=== PATIENT | male | born 1940 | race Caucasian/White ===

== ENCOUNTER → 2016-10-08 | Outpatient (CLI) | payer BC ==
[~2016-10-08] MED LIST: ADVIN25/60 INH; ALBUAER19 INH; ALLO300T2 PO; ASPI81TA28 PO; CALC-342 PO; FURO40TA3 PO; IPRA0.037 NAE; LISI20TA3 PO; LPT10 PO; MULTTAB58 PO; SENNTAB23 PO; TIOTCAP INH
[2016-10-08 11:33] LABS: CREATININE RANDOM URINE < 13.0 mg/dl
[2016-10-08 13:36] LABS: ALT/SGPT 19 U/L (12-78); BLOOD UREA NITROGEN 21 mg/dl (7-18); BUN/CREATININE RATIO 14.9 (10-20); CALCIUM 9.3 mg/dl (8.5-10.1); CARBON DIOXIDE 30 mmol/L (21-32); CHLORIDE 103 mmol/L (98-107); CHOLESTEROL 132 mg/dl (0-200); GLUCOSE 175 mg/dl (70-99); POTASSIUM 3.7 mmol/L (3.5-5.1); SODIUM 142 mmol/L (136-145); TRIGLYCERIDES 120 mg/dl (0-150); VERY LOW DENSITY LIPOPROT CALC 24 mg/dl
[2016-10-08 13:40] LABS: ALB/GLOB RATIO 1.1 (0.9-2); ALKALINE PHOSPHATASE 102 U/L (45-117); AST/SGOT 14 U/L (15-37); CHOLESTEROL/HDL RATIO 2.7; HDL CHOLESTEROL 49 mg/dl; LDL CHOLESTEROL CALCULATED 59 mg/dl; PHOSPHORUS 2.8 mg/dl (2.5-4.9)
== END | disposition home or self-care (01) ==
LOC: C.LABBC 09:08
PROVIDERS: ATTEND Family Medicine
DX: I71.4 Abdominal aortic aneurysm, without rupture (principal); N18.3 Chronic kidney disease, stage 3 (moderate)

== ENCOUNTER → 2017-01-06 | Outpatient (CLI) | payer BC ==
--- NOTE | 2017-01-06 10:46 | DIAGNOSTIC IMAGING REPORT ---
CT SCAN OF THE CHEST WITHOUT IV CONTRAST CLINICAL HISTORY: Pulmonary nodule follow-up. COMPARISON STUDY: Chest x-ray dated 09/01/2016. Chest CT dated 03/18/2016. Abdominal CT dated 02/17/2015 08/05/2006. TECHNIQUE: CT scan of the thorax was performed from the thoracic inlet to the upper abdomen. Images are reviewed in the axial, sagittal, and coronal planes. IV contrast was not administered for this examination as per the referring clinician. CT DOSE: 1196.97 mGy.cm FINDINGS: Thyroid: The thyroid gland is enlarged and heterogeneous. Large calcifications are present in the right lobe. Thoracic aorta: There is atherosclerotic calcification of the thoracic aorta, which is normal in caliber and demonstrates standard 3-vessel arch anatomy. Heart: The heart is enlarged and without pericardial effusion. The coronary arteries are densely calcified. Lungs and pleural spaces: There is a low suspicion 5 mm focus of pleural thickening in the right lower lobe along the major fissure seen on image #193. Patchy nodular airspace opacities are present at the right lung base in the right middle lobe on image #230 and at the left lung base on images #191 and #233. This is new from 03/18/2016 and likely represents mild infectious/inflammatory pneumonitis. The trachea and central airways are clear. No lobar consolidation or pleural effusion is identified. Scattered calcified granulomas are observed. Mediastinum: There is no mediastinal lymphadenopathy. Deb: Not well assessed without IV contrast. Axillae: There is no axillary lymphadenopathy. Upper abdomen: There is a small hiatal hernia. Numerous calcified splenic granulomas are observed. There are calcified gallstones. There are numerous bilateral adrenal nodules. Several contain macroscopic fat. The largest is seen on the right and measures up to 5 cm. These are similar appearance dating back to 2005 and of doubtful significance. Scattered hepatic cysts measure up to 1.8 cm. Additional subcentimeter hepatic hypodensities also likely represent cysts but are too small for definitive characterization. A 4.4 cm exophytic cyst arises from the upper pole the left kidney. Skeletal structures: The skeletal structures are osteopenic. Mild degenerative change is seen throughout the thoracic spine. No lytic or blastic bony lesions are seen. Soft tissues: Gynecomastia is observed. IMPRESSION: 1. There is no lobar consolidation or pleural effusion. 2. There is unchanged appearance of a low suspicion 5 mm focus of pleural based nodularity along the right major fissure as compared to 03/18/2016. 3. There are new small foci of patchy nodular consolidative change in the right middle lobe and the left lower lobe. These are new from 03/18/2016 and likely on an infectious/inflammatory basis. Precautionary follow-up CT scan in 6 months time is recommended to document resolution. 4. Cardiomegaly. 5. Cholelithiasis. 6. There is evidence of remote granulomatous infection. 7. Large bilateral adrenal nodules which contain macroscopic fat are not significant changed dating back to 2005. These are of doubtful significance. 8. Additional findings as above. Electronically signed by: Matias Nuñez M.D. 01/06/2017 10:44 AM Dictated Date/Time: 01/06/2017 10:33 AM
--- NOTE | 2017-01-10 14:42 | PULMONARY FUNCTION TEST ---
CLINICAL DATA: A 76-year-old male with a height of 72 inches and a weight of [address] Fitch for evaluation of COPD. Spirometry pre- and post-bronchodilator were performed. FINDINGS: Pre-bronchodilator spirometry demonstrates moderate obstructive airways disease. FVC was 63% of predicted. FEV1 was 59% of predicted. [id number] was 42% of predicted. There was some improvement after inhaled bronchodilator. FVC improved 2% to 64% of predicted. FEV1 improved 8% to 63% of predicted. KCU12-04 improved 30% to 55% of predicted. IMPRESSION: Moderate obstructive airways disease with slight improvement after inhaled bronchodilator. MTDD
== END | disposition home or self-care (01) ==
LOC: C.CTS 10:22
PROVIDERS: ATTEND Specialist
DX: J44.9 Chronic obstructive pulmonary disease, unspecified (principal); I51.7 Cardiomegaly; K80.20 Calculus of gallbladder without cholecystitis without obstruction

== ENCOUNTER → 2017-06-27 | Outpatient (CLI) | payer BC ==
--- NOTE | 2017-06-27 10:41 | DIAGNOSTIC IMAGING REPORT ---
CT OF THE CHEST WITHOUT IV CONTRAST CLINICAL HISTORY: Pulmonary nodule. COPD. COMPARISON STUDY: PET CT November 05, [address] January 06, 2017. CT DOSE: 968.09 mGy.cm TECHNIQUE: Axial images of the chest were obtained without IV contrast. Images were reviewed in the axial, sagittal, and coronal planes. IV contrast was not administered for this examination. A dose lowering technique was utilized adhering to the principles of ALARA. FINDINGS: No enlarged axillary, mediastinal or hilar lymph nodes are present. The heart is mildly enlarged. There is extensive coronary artery calcification. There is no pericardial effusion. Bilateral gynecomastia is noted. There is no consolidation to suggest pneumonia. The mild airspace opacity shown on exam of January 06, 2017 within the right middle lobe and left lower lobe has resolved. A 9 mm perifissural nodule within the right lower lobe shown on image 188 is unchanged since exam of March 18, 2016. This is likely benign. There are no suspicious pulmonary nodules. Central airways are patent. Bony thorax is unremarkable. Fat-containing bilateral renal lesions are benign. There is a left renal cyst and gallstones within the gallbladder. Multiple hepatic lesions are unchanged and likely reflect cysts. There are calcified granulomas within the spleen. IMPRESSION: 1. No change in the 9 mm perifissural right lower lobe nodule since earlier exams. This nodule is likely benign. 2. No suspicious pulmonary nodules. 3. Interval resolution of mild airspace opacities within the left lower lobe and right middle lobe since CT of January 06, 2017. Electronically signed by: Pipe Winn M.D. 06/27/2017 10:39 AM Dictated Date/Time: 06/27/2017 10:12 AM
== END | disposition home or self-care (01) ==
LOC: C.CTS 09:50
PROVIDERS: ATTEND Specialist
DX: R91.1 Solitary pulmonary nodule (principal); J44.9 Chronic obstructive pulmonary disease, unspecified

== ENCOUNTER 2021-02-20 08:07 | Inpatient (IN) ==
--- NOTE | 2021-01-29 17:00 | PAT Medication Instructions ---
Medication Instructions Date of Service January 29, 2021 Home Medications allopurinol 1.5 tab PO QAM aspirin 81 mg PO Q2D calcium carbonate-vitamin D3 [Calcium 500 + D] 1 tab PO HS docusate sodium [Colace] 100 mg PO BID PRN duloxetine 60 mg PO QAM ipratropium-albuterol 1 dose INHALATION Q6H PRN metoprolol succinate 25 mg PO UD multivitamin 1 tab PO QAM albuterol sulfate [Ventolin HFA] 2 puff INHALATION Q6H PRN ezetimibe 10 mg PO QAM famotidine 20 mg PO HS PRN Metamucil 1 tbsp PO QAM Trelegy Ellipta 1 inh INHALATION QAM acetylcysteine 600 mg PO BID cephalexin 500 mg PO UD PRN cyanocobalamin (vitamin B-12) 1,000 mcg PO QAM furosemide 40 mg PO QAM spironolactone 12.5 mg PO QAM sulindac 200 mg PO QAM Continue as directed aspirin 81 mg PO Q2D (unless otherwise instructed by your surgeon) cephalexin 500 mg PO UD PRN ASK your surgeon for instructions sulindac 200 mg PO QAM STOP taking 2 weeks before surgery If surgery is within 2 weeks, stop taking as soon as possible. acetylcysteine 600 mg PO BID DO NOT take the morning of surgery docusate sodium [Colace] 100 mg PO BID PRN multivitamin 1 tab PO QAM Metamucil 1 tbsp PO QAM cyanocobalamin (vitamin B-12) 1,000 mcg PO QAM furosemide 40 mg PO QAM spironolactone 12.5 mg PO QAM Take morning of surgery With a small sip of water, OTHERWISE NOTHING TO EAT OR DRINK AFTER MIDNIGHT: allopurinol 1.5 tab PO QAM duloxetine 60 mg PO QAM ipratropium-albuterol 1 dose INHALATION Q6H PRN (if needed) metoprolol succinate 25 mg PO UD albuterol sulfate [Ventolin HFA] 2 puff INHALATION Q6H PRN (if needed) ezetimibe 10 mg PO QAM Trelegy Ellipta 1 inh INHALATION QAM Take evening before surgery calcium carbonate-vitamin D3 [Calcium 500 + D] 1 tab PO HS docusate sodium [Colace] 100 mg PO BID PRN (if needed) ipratropium-albuterol 1 dose INHALATION Q6H PRN (if needed) metoprolol succinate 25 mg PO UD albuterol sulfate [Ventolin HFA] 2 puff INHALATION Q6H PRN (if needed) famotidine 20 mg PO HS PRN (if needed) Other Notes If you have any questions please call us at [phone] or [phone] or [phone] or [phone]
--- NOTE | 2021-01-30 12:01 | Anesthesiology Consultation ---
Date of Service January 30, 2021 Assessment & Plan (1) Encounter for pre-operative examination: COVID Status: As of 01/30 assessment, patient denies travel to endemic area, known exposure/sick contacts, or symptoms of COVID19. Patient instructed that they and their household members must follow strict social distancing guidelines, wear a mask in public and avoid travel/events/gatherings for 14 days prior to surgery. Preoperative COVID19 testing to be completed prior to surgery per surgeon's arrangements (02/18). Patient encouraged to self-isolate as much as possible between COVID testing and surgery. Lab called to report unable to run CBC and type and screen due to clumping/str anding in tubes. Will contact pt to have rpt labs done. Pt to see cardio on 02/03. Chart Review Chart Review: Acceptable Risk for Surgery (pending updated labs and cardio clearance) and Patient seen in Pre Admission Testing Teaching & Discussion Instructed NPO after midnight before surgery, except medications with 15 cc of water. Medication instructions provided according to the PAT guidelines. History Surgery Operation Date: 02/20/21 12:25 Proposed Procedures p T11-T12 Posterior Decompression and Fusion, Spinal Cord Monitoring - Shaun Denton, Height/Weight Height: 5 ft 11 in Weight: 118 kg Allergies Allergy/AdvReac Type Severity Reaction Status Date / Time No Known Allergies Allergy Unknown ` Verified 01/28/21 08:58 Medications Home Medications Medication Instructions Recorded Confirmed Last Taken allopurinol 1.5 tab PO QAM 05/30/18 01/28/21 12/04/20 08:00 aspirin 81 mg PO Q2D 05/30/18 01/28/21 11/28/20 calcium carbonate-vitamin D3 1 tab PO HS 05/30/18 01/28/21 12/01/20 [Calcium 500 + D] docusate sodium [Colace] 100 mg PO BID PRN 05/30/18 01/28/21 12/04/20 20:00 duloxetine 60 mg PO QAM 05/30/18 01/28/21 12/05/20 08:00 ipratropium-albuterol 1 dose INHALATION Q6H PRN 05/30/18 01/28/21 06/25/18 metoprolol succinate 25 mg PO UD 05/30/18 01/28/21 12/05/20 08:00 multivitamin 1 tab PO QAM 05/30/18 01/28/21 12/04/20 08:00 albuterol sulfate [Ventolin HFA] 2 puff INHALATION Q6H PRN 06/26/18 01/28/21 Unknown ezetimibe 10 mg PO QAM 06/26/18 01/28/21 12/04/20 08:00 famotidine 20 mg PO HS PRN 06/26/18 01/28/21 12/04/20 20:00 Metamucil 1 tbsp PO QAM 12/02/20 01/28/21 12/04/20 08:00 Trelegy Ellipta 1 inh INHALATION QAM 12/02/20 01/28/21 12/05/20 08:00 acetylcysteine 600 mg PO BID 12/02/20 01/28/21 12/04/20 19:00 cephalexin 500 mg PO UD PRN 12/02/20 01/28/21 Unknown cyanocobalamin (vitamin B-12) 1,000 mcg PO QAM 12/02/20 01/28/21 12/04/20 08:00 furosemide 40 mg PO QAM 12/02/20 01/28/21 12/04/20 08:00 spironolactone 12.5 mg PO QAM 12/02/20 01/28/21 12/04/20 08:00 sulindac 200 mg PO QAM 12/02/20 01/28/21 12/04/20 08:00 Past Medical History Medical History (Updated 02/02/21 @ 09:58 by Tim Sanchez) AAA (abdominal aortic aneurysm) (CARDIO MONITORING) CAD (coronary artery disease) 2015 cath showed no high-grade obstruction -- no stents. Follows with [facility] cardio. Chronic back pain CKD (chronic kidney disease), stage III COPD (chronic obstructive pulmonary disease) HLD (hyperlipidemia) Hx of gout Hx of melanoma of skin Hypertension Neuropathy BLE Osteoarthritis Sleep apnea CPAP -- reports at least 4-5hrs of use every night SOB (shortness of breath) on exertion Exercise / Class Metabolic Activity III < 4 Walking/Shop/Light housework (Limited by leg weakness/neuropathy, denies CP or SOB with ambulation) Past Family History Family History Mother Diabetes Brother Family hx of colon cancer Diabetes Other Bladder cancer COPD (chronic obstructive pulmonary disease) Hypertension No family history of adverse response to anesthesia Past Surgical History Surgical History Fusion of spine LUMBAR X 2 H/O esophagogastroduodenoscopy History of adenoidectomy History of cardiac cath 2016- NO STENTS History of partial knee replacement RT History of tonsillectomy Hx of LASIK Status post Mohs surgery Past Anesthesia History No Hx of Anesthesia Complications and No Family Hx of Anesthesia Complications History of PONV No Hx of PONV and No Hx of Motion Sickness Social History Smoking Status: Former smoker tobacco type: cigarettes Do You Dip or Chew Tobacco: No Smoking End Date: OVER 30 YEARS AGO Hx Alcohol Use: Yes Alcohol type: beer alcohol intake frequency: holidays/special occasions only substance use type: does not use Review of Systems Pt denies any recent chest pain, shortness of breath, palpitations, cough, fever, URI, or uncontrolled acid reflux. Physical Exam Vital Signs BP: 152/91 -- pt reports this is high for him, was 120s at PCP office, he is anxious today P: 76bpm SPO2: 97% RA T: 98.1 F R: 16 ENMT Mouth: + dental restorations (many crowns and posts) and + small oral opening; no chipped teeth and no loose teeth Thyromental Distance: > or= 3.5 Finger Breadths (difficult to palpate due to excess tissue) Mallampati Class: I Neck + thick neck and + limited neck extension (mildly) Respiratory normal respiratory effort, lungs clear to auscultation Cardiovascular RRR, no murmur, no edema Vessels: no carotid bruit Testing Laboratory Results 01/30/21 12:15 01/30/21 12:15 PT 10.1 Seconds (9.0-12.0) 01/30/21 12:15 INR 1.0 (0.9-1.1) 01/30/21 12:15 APTT 24.5 Seconds (21.0-31.0) 01/30/21 12:15 Urine Color Yellow 01/30/21 12:15 Urine Appearance Clear (Clear) 01/30/21 12:15 Urine pH 5.5 (4.5-7.5) 01/30/21 12:15 Ur Specific [place] 1.015 (1.000-1.030) 01/30/21 12:15 Urine Protein Negative (Negative) 01/30/21 12:15 Urine Glucose (UA) Negative (Negative) 01/30/21 12:15 Urine Ketones Negative (Negative) 01/30/21 12:15 Urine Nitrite Negative (Negative) 01/30/21 12:15 Ur Leukocyte Esterase 2+ (Negative) H 01/30/21 12:15 Urine WBC (Auto) >30 /hpf (0-5) H 01/30/21 12:15 Urine RBC (Auto) 0-4 /hpf (0-4) 01/30/21 12:15 U Hyaline Cast (Auto) 1-5 /lpf (0-5) 01/30/21 12:15 U Epithel Cells (Auto) 0-5 /lpf (0-5) 01/30/21 12:15 Urine Bacteria (Auto) 2+ (Negative) H 01/30/21 12:15 Blood Type Cancelled 01/30/21 12:15 Antibody Screen Cancelled 01/30/21 12:15 01/30/21 12:15 Urine Culture - Final Urine,Clean Catch Proteus mirabilis *Received phone call from lab--unable to run CBC due to clotting/stranding in tube. Will need rpt CBC. *Surgeon's office flagged re: + UA Electrocardiogram Date: 10/29/20 Sinus rhythm at 99 bpm with first-degree AV block. Otherwise normal EKG. Echocardiogram Date: 04/17/20 EF: 55-59% RWMA: + none Other Findings: + LVH (mild concentric) and + diastolic dysfunction (grade I) The aortic root is borderline enlarged. The proximal ascending thoracic aorta is moderately enlarged at 4.6 cm. Compared to last available study changes are noted as follows: Ascending aorta size has increased slightly. Stress Test Date: 06/21/18 Type: DSE The stress echo is negative for inducible ischemia. There is an adequate and appropriate heart rate and blood pressure response to the dobutamine atropine stress protocol. Stress EKG response showed no evidence of ischemia. LV wall motion is normal at rest and with stress. The LV cavity size is normal. LV wall thickness is moderately increased (concentric). Grade 1 diastolic dysfunction of the left ventricle. The aortic valve is mildly calcified. Aortic stenosis is absent. Other Testing Chest CT 10/17/20 No pericardial effusion. Heart is not enlarged. Coronary and aortic atherosclerosis. No pleural effusion. No pneumothorax. Central airways patent. Calcified granuloma in the left upper lobe. Stable 4.2 cm aneurysmal dilatation of the mid ascending aorta. Multinodular goiter. Cholelithiasis. Bilateral adrenal gland myelo lipoma and/or adenoma.
[2021-01-30 12:49] LABS: Partial Thromboplastin Ratio 0.9; Partial Thromboplastin Time 24.5 Seconds (21.0-31.0); Prothrombin Time 10.1 Seconds (9.0-12.0)
[2021-01-30 12:50] LABS: Appearance Urine Clear (Clear); Bacteria Urine Automated 2+ (Negative); Bilirubin Urine Negative (Negative); Blood Urine Negative (Negative); Color Urine Yellow; Epithelial Cell Urine Auto 0-5 /lpf (0-5); Glucose Urine UA Negative (Negative); Ketones Urine Negative (Negative); Leukocyte Esterase Urine 2+ (Negative); Nitrite Urine Negative (Negative); Protein Urine Negative (Negative); RBC Urine Automated 0-4 /hpf (0-4); Specific Gravity Urine 1.015 (1.000-1.030); Urobilinogen Urine Negative (Negative); WBC Urine Automated >30 /hpf (0-5); pH Urine 5.5 (4.5-7.5)
[2021-01-30 16:16] LABS: BUN Creatinine Ratio 21.2 (10-20); Calcium 9.6 mg/dl (8.5-10.1); Creatinine Clr Calc Pharmacy 58.2 ml/min; Est GFR (African American) 59.3 ml/min; Est GFR (Non-African American) 51.2 ml/min; Potassium 4.3 mmol/L (3.5-5.1)
[~2021-02-20 08:07] MED LIST changes: +ACETAMINOPHEN 500 MG TAB PO SCH; -ADVIN25/60 INH; -ALBUAER19 INH; -ALLO300T2 PO; -ASPI81TA28 PO; -CALC-342 PO; +CeleBREX 200 MG CAP PO SCH; -FURO40TA3 PO; +GABAPENTIN 300 MG CAP PO SCH; -IPRA0.037 NAE; +LACTATED RINGER'S 1,000 ML IV SCH; -LISI20TA3 PO; -LPT10 PO; -MULTTAB58 PO; -SENNTAB23 PO; -TIOTCAP INH; +ceFAZolin 2000MG 2,000 MG/15 ML SYR IV SCH
[2021-02-20] MEDS ORDERED: ATROPINE SULFATE 0.1 MG/ML 10ML SYR IV PRN ×2 (09:57→13:16)
[2021-02-20] MEDS ORDERED: ePHEDrine sulfate 50 MG/ML AMP IV PRN ×2 (09:57→13:16)
[2021-02-20] MEDS ORDERED: HYDROmorphone INJ 1 MG/ML SYRINGE IV PRN ×2 (09:57→14:37)
[2021-02-20] MEDS ORDERED: ONDANSETRON INJ 2 MG/ML 2 ML VIAL IV PRN ×2 (09:57→14:37)
[2021-02-20] MEDS ORDERED: SODIUM CHLORIDE 0.9% 250 ML IV PRN (10:00)
[2021-02-20] MEDS ORDERED: ROCURONIUM BROMIDE 10 MG/ML 5 ML VIAL IV ONE (10:11)
[2021-02-20] MEDS ORDERED: LIDOCAINE 2% 2 ML VIAL/AMP(20MG/ML) INFIL ONE (10:11)
[2021-02-20] MEDS ORDERED: PROPOFOL IV EMULSION 10 MG/ML 20 ML VIAL IV ONE (10:11)
[2021-02-20] MEDS ORDERED: fentaNYL citrate 100 MCG/2 ML VIAL ONE ×3 (10:11→12:55)
--- NOTE | 2021-02-20 10:28 | History & Physical Bridge Note ---
Date of Service February 20, 2021 History & Physical Bridge Note I have examined the patient, reviewed the History & Physical and in the interval since the performance of the History & Physical I have noted the following changes of clinical significance: no changes noted
--- NOTE | 2021-02-20 10:29 | History & Physical Report ---
Date of Service February 20, 2021 Assessment & Plan (1) Myelopathy concurrent with and due to spinal stenosis of thoracic region: Admission and Anticipated Discharge Date Admission Date: T12 posterior decompression fusion History of Present Illness Chief Complaint: Back and bilateral leg weakness Primary Care Provider: Hank Burden DO This is an 80-year-old male well-known to me the presents with worsening back pain leg weakness and numbness is here for surgical invention. Allergies Allergy/AdvReac Type Severity Reaction Status Date / Time [id number]-Box Reductase AdvReac Intermediate Dizziness Verified 02/20/21 08:52 Inhibitor Home Medications Medication Instructions Recorded Confirmed Type allopurinol 1.5 tab PO QAM 05/30/18 02/20/21 History aspirin 81 mg PO Q2D 05/30/18 02/20/21 History calcium carbonate-vitamin D3 1 tab PO HS 05/30/18 02/20/21 History [Calcium 500 + D] docusate sodium [Colace] 100 mg PO BID PRN 05/30/18 02/20/21 History duloxetine [Cymbalta] 60 mg PO QAM 05/30/18 02/20/21 History ipratropium-albuterol 1 dose INHALATION Q6H PRN 05/30/18 02/20/21 History metoprolol succinate 25 mg PO UD 05/30/18 02/20/21 History multivitamin 1 tab PO QAM 05/30/18 02/20/21 History albuterol sulfate [Ventolin HFA] 2 puff INHALATION Q6H PRN 06/26/18 02/20/21 History ezetimibe [Zetia] 10 mg PO QAM 06/26/18 02/20/21 History famotidine [Pepcid] 20 mg PO HS PRN 06/26/18 02/20/21 History Metamucil 1 tbsp PO QAM 12/02/20 02/20/21 History Trelegy Ellipta 1 inh INHALATION QAM 12/02/20 02/20/21 History acetylcysteine [NAC] 600 mg PO BID 12/02/20 02/20/21 History cephalexin 500 mg PO UD PRN 12/02/20 02/20/21 History cyanocobalamin (vitamin B-12) 1,000 mcg PO QAM 12/02/20 02/20/21 History furosemide 40 mg PO QAM 12/02/20 02/20/21 History spironolactone [Aldactone] 12.5 mg PO QAM 12/02/20 02/20/21 History sulindac 200 mg PO QAM 12/02/20 02/20/21 History Past Med/Surg History Medical History (Updated 02/20/21 @ 10:29 by Shaun Denton DO) AAA (abdominal aortic aneurysm) (CARDIO MONITORING) CAD (coronary artery disease) 2015 cath showed no high-grade obstruction -- no stents. Follows with [facility]. Chronic back pain CKD (chronic kidney disease), stage III COPD (chronic obstructive pulmonary disease) HLD (hyperlipidemia) Hx of gout Hx of melanoma of skin Hypertension Neuropathy BLE Osteoarthritis Sleep apnea CPAP -- reports at least 4-5hrs of use every night SOB (shortness of breath) on exertion Surgical History Fusion of spine LUMBAR X 2 H/O esophagogastroduodenoscopy History of adenoidectomy History of cardiac cath 2015- NO STENTS History of partial knee replacement RT History of tonsillectomy Hx of LASIK Status post Mohs surgery Family History Mother Diabetes Brother Family hx of colon cancer Diabetes Other Bladder cancer COPD (chronic obstructive pulmonary disease) Hypertension No family history of adverse response to anesthesia Social History Smoking Status: Former smoker Smoking End Date: OVER 30 YEARS AGO; Second Hand Exposure: No; Do You Dip or Chew Tobacco: No; Tobacco Cessation Education Requested by Patient: No Hx Alcohol Use: No Hx Substance Use: No Preferred Language: [place] Communication Ability: Effective Visual Impairment: No Limitations Timekeeper Required: No Beliefs That Will Affect Care: None Current Living Situation: Spouse Feels Safe at Home: Yes Safety Concerns: Feels Safe At This Time Assistive Devices: Cane, CPAP and Glasses Assistive Devices Comment: READING GLASSES Physical Exam Physical Exam: Patient is alert and oriented Heart regular in rhythm Lungs clear to auscultation Results & Data ([facility]) Vital Signs (Past 12 Hours) Vital Signs Temp Pulse Resp BP Pulse Ox 02/20/21 09:03 36.8 C 87 20 144/83 H 96
[2021-02-20] MEDS ORDERED: SUGAMMADEX SODIUM 200 MG/2 ML VIAL IV ONE (10:58)
[2021-02-20] MEDS ORDERED: BUPIVACAINE/EPINEPHRINE 0.5% MPF 1:200,000 30 ML VIAL ONE (10:59)
[2021-02-20] MEDS ORDERED: FLOSEAL HEMOSTATIC MATRIX 10ML TOP ONE (12:43)
[2021-02-20] MEDS ORDERED: NEOSTIGMINE METHYLSULFATE 1 MG/ML 10ML VIAL ONE (12:45)
[2021-02-20] MEDS ORDERED: DEXAMETHASONE SOD INJ 4 MG/ML VIAL ONE (12:45)
[2021-02-20] MEDS ORDERED: PHENYLEPHRINE 100MCG/ML 5ML SYR ONE (12:45)
[2021-02-20] MEDS ORDERED: GLYCOPYRROLATE 0.2 MG/ML VIAL ONE (12:45)
[2021-02-20] MEDS ORDERED: ONDANSETRON INJ 2 MG/ML 2 ML VIAL ONE (12:45)
--- NOTE | 2021-02-20 12:52 | Operative Report ---
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 #2 posterior spinal fusion T11-T12. #3 placement posterior instrumentation T11-T12. #4 placement locally harvested morselized autograft in the posterior gutters. #5 placement infuse collagen sponge, master graft in the posterior lateral gutters. Surgeon Shaun Denton, DO Light Cleaner Sim Davis Estimated Blood Loss 100 Findings See Below The patient is 5 foot 11 inches tall weighing over 117 kg with a BMI in excess of 36. The patient's body habitus did contribute to significant technical difficulty adding at least 50% increase to the operative time. Specimens None Indications This is a 80-year-old male known to me the presents with marked progressive myelopathy and is here for surgical invention. Description of Procedure Patient was met with identified informed consent obtained. Patient was then taken to the operative suite underwent ablation placed in a prone position the Riley table Armond frame. All bony prominences well-padded eyes inspected to ensure no external pressure placed upon the. This point the thoracic spine was prepped and draped in normal sterile fashion. Sharp dissection with the assistance of Bovie cautery was performed down to and exposing the lamina and transverse processes of T11 and T12. Then performed complete laminectomy of T11 including bilateral medial facetectomies and foraminotomies addressing severe spinal stenosis. Obvious instability of the facets was noted as well as adhesions to the dura. Pedicle screws were then placed in T11-T12 bilaterally with assistance of fluoroscopy the purposes demetrio locked in position. The transverse processes of T11-T12 were then burred to subcortically bone. Infuse collagen sponge mass graft local autograft was then placed in the posterior lateral gutters. 15 round TEX drain inserted. The incision was then closed with 1 Vicryl in the fascia 2-0 Vicryl subcutaneously and 4 Monocryl for final skin closure. Steri-Strip sterile dressings placed. Patient waken taken PACU stable condition. Please note spinal cord monitoring was utilized at the procedure no changes noted. Lastly Sim Davis was present at the entire procedure involved the patient positioning complex portions of the surgery and final skin closure. I attest to the content of the Intraoperative Record and any orders documented therein. Any exceptions are noted below.
--- NOTE | 2021-02-20 13:27 | Fluoroscopy Report ---
[place] thoracic spine 2V CLINICAL HISTORY: T11-12 DECOMPRESSION/FUSION COMPARISON STUDY: Thoracic spine MRI January 26, 2021. FLUOROSCOPY TIME: 23 seconds. FLUOROSCOPIC IMAGES: 3 FINDINGS: Exact localization is difficult given partial visualization of the lumbar spine. These imag es demonstrate a posterior decompression and 2 level bilateral pedicle screw fusion. No unexpected ra diopaque bodies are present. IMPRESSION: Fluoroscopic images demonstrating a posterior decompression and 2 level bilateral pedicl e screw fusion. ACT 112: Negative or not required by law. Electronically signed by: Pipe Winn M.D. 02/20/2021 1:25 PM
[2021-02-20] MEDS: fentaNYL citrate 100 MCG/2 ML VIAL IV PRN ×2 (13:29→13:34)
--- NOTE | 2021-02-20 13:59 | Anesthesiology Progress Note ---
Date of Service February 20, 2021 Anesthesia Post Procedure Vital Signs Vital Signs: Temp Pulse Resp BP Pulse Ox 02/20/21 13:45 36.9 C 85 18 147/80 H 95 02/20/21 13:35 85 18 129/76 65 L 02/20/21 13:25 98 H 18 126/63 94 02/20/21 13:15 37.3 C 91 H 18 166/86 H 94 02/20/21 09:03 36.8 C 87 20 144/83 H 96 Transfer of Care Handoff Completed per policy Notes Mental Status: alert / awake / arousable and participated in evaluation Patient Amnestic to Procedure: Yes Nausea / Vomiting: adequately controlled Pain: adequately controlled Airway Patency, RR, SpO2: stable & adequate BP & HR: stable & adequate Hydration State: stable & adequate Anesthetic Complications: no major complications apparent and Pt Satisfied with anesthetic care
[2021-02-20] MEDS ORDERED: ACETAMINOPHEN 1,000 MG/100 ML VIAL IV PRN (14:37)
[2021-02-20] MEDS ORDERED: ACETAMINOPHEN 500 MG TAB PO PRN (14:37)
[2021-02-20] MEDS ORDERED: ALUMINUM/MAGNESIUM SUSP 30 ML UDC PO PRN (14:37)
[2021-02-20] MEDS ORDERED: NALOXONE HCL 0.4 MG/1 ML VIAL/CARP IV PRN (14:37)
[2021-02-20] MEDS ORDERED: METOCLOPRAMIDE HCL INJ 5 MG/ML 2 ML VIAL IV PRN (14:37)
[2021-02-20] MEDS ORDERED: hydrOXYzine HCl 25 MG TAB PO PRN (14:37)
[2021-02-20] MEDS ORDERED: LORazepam 0.5 MG/1 ML VIAL IV PRN (14:37)
[2021-02-20] MEDS ORDERED: HYDROmorphone INJ 0.5 MG/0.5 ML SYR IV PRN (14:37)
[2021-02-20] MEDS ORDERED: SOD PHOSPHATE/SOD BIPHOSPHATE ENEMA 132 ML BTL PR PRN (14:37)
[2021-02-20] MEDS ORDERED: LORazepam 0.5 MG TAB PO PRN (14:37)
[2021-02-20] MEDS ORDERED: DO NOT ADMINISTER PNEUMOCOCCAL VACCINE PRN (14:37)
[2021-02-20] MEDS ORDERED: ONDANSETRON 4 MG OD TAB PO PRN (14:37)
[2021-02-20] MEDS ORDERED: FAMOTIDINE 20 MG TAB PO PRN ×2 (14:37)
[2021-02-20] MEDS ORDERED: MAGNESIUM HYDROXIDE SUSP 30 ML UDC PO PRN (14:37)
[2021-02-20] MEDS ORDERED: diphenhydrAMINE Capsule 25 MG CAP PO PRN (14:37)
[2021-02-20] MEDS ORDERED: DO NOT ADMINISTER FLU VACCINE PRN (14:37)
[2021-02-20] MEDS ORDERED: PROMETHAZINE HCL 12.5 MG in SODIUM CHLORIDE 0.9% 50 ML IV PRN (14:37)
[2021-02-20] MEDS ORDERED: traMADol HCL 50 MG TABLET PO PRN (14:37)
--- NOTE | 2021-02-20 15:04 | Hospitalist Consultation ---
Date of Consultation February 20, 2021 Assessment & Plan (1) S/P spinal surgery: This is an 80yo M with a PMH of CAD, HTN, HLD, abdominal aortic aneurysm measuring 3.2 cm stable on ultrasound 12/2017, COPD, ARIANA on CPAP, gout, GERD, CKD III, neuropathy who is POD#0 s/p thoracic decompression with bilateral medial facetectomies and foraminotomies and posterior spinal fusion of T11-T12. POD#0 s/p thoracic decompression with bilateral medial facetectomies and foraminotomies and posterior spinal fusion of T11-T12 by Dr. Denton Per ortho for pain control, wound care, anticoagulation and activities Monitor H&H (EBL: 100, pre-op hgb 14.8) Continue incentive spirometry, PT/OT when appropriate (2) CAD (coronary artery disease): Continue ASA, metoprolol, ezitamibe. Statin intolerant (3) COPD (chronic obstructive pulmonary disease): Stable. Currently 96% on 3L NC post op - wean O2 as tolerated Continue Trelegy inhaler, Duonebs Q6H PRN SOB or wheezing (4) CKD (chronic kidney disease), stage III: Baseline Cr 1.3-1.5 Monitor renal function with daily BMP Avoid nephrotoxic agents if able (5) Hypertension: Normotensive. Continue Toprol Holding lasix for now - re-evaluate fluid status in AM (6) AAA (abdominal aortic aneurysm): Small abdominal aortic aneurysm, 3.2 cm, stable per US in December 2017 (7) HLD (hyperlipidemia): Continue ezitamibe (8) ARIANA (obstructive sleep apnea): CPAP HS PCP: Sharon Burden Dispo: Per ortho Patient seen in collaboration with Dr. Brothers. Please see addendum. Thank you for this consultation. We will follow the patient with you during their hospital stay. You can reach a [facility] via [employer]. Supervising Physician Co-Signing Physician Notes Attending addendum: The patient was seen and examined in medical floor He is an 80-year-old male with significant past medical history of CAD, hypertension, hyperlipidemia, abdominal aortic aneurysm, COPD, ARIANA on CPAP, gout, GERD, CKD with peripheral neuropathy has had spinal surgery today He has been complaining of some back pain and numbness involving both the legs Denies any chest pain, palpitation, shortness of breath and denies any other significant symptoms On examination Lying in bed comfortably Hemodynamically stable Chestdecreased breath sounds otherwise clear bilaterally Heart-S1-S2, regular, no murmur Abdomen-distended, soft, bowel sound present Extremities-no edema HAND [employer]KER-alert, awake and oriented x3 His labs prior to admission, dobutamine stress echo and imaging studies reviewed He is status post T11-T12 posterior decompression and fusion with significant history of CAD, CKD stage III, COPD, ARIANA, peripheral neuropathy and hypertension His chronic medical condition seems to be stable Agree with assessment and plan as outlined above by SADAF Ruiz Dr History of Present Illness Reason for Consultation: post op medical consult Attending Physician: Shaun Denton DO History of Present Illness This is an 80yo M with a PMH of CAD, HTN, HLD, abdominal aortic aneurysm measuring 3.2 cm stable on ultrasound 12/2017, COPD, ARIANA on CPAP, gout, GERD, CKD III, neuropathy who is POD#0 s/p thoracic decompression with bilateral medial facetectomies and foraminotomies and posterior spinal fusion of T11-T12. Patient is feeling well postoperatively. Endorses minimal surgical site discomfort. Has neuropathy in bilateral lower lower extremity as a chronic condition with minimal feeling in feet. Denies any chest pain or shortness of breath. No nausea. Denies fever, chills, headache, lightheadedness, palpitations, vomiting, abdominal pain, dysuria, diarrhea or constipation. Receives primary care from Dr. Hank Burden. Allergies Allergy/AdvReac Type Severity Reaction Status Date / Time Nrxawoc-Cog-Xmo Reductase AdvReac Intermediate Dizziness Verified 02/20/21 08:52 Inhibitor Home Medications Medication Instructions Recorded Confirmed Type allopurinol 1.5 tab PO QAM 05/30/18 02/20/21 History aspirin 81 mg PO Q2D 05/30/18 02/20/21 History calcium carbonate-vitamin D3 1 tab PO HS 05/30/18 02/20/21 History [Calcium 500 + D] docusate sodium [Colace] 100 mg PO BID PRN 05/30/18 02/20/21 History duloxetine [Cymbalta] 60 mg PO QAM 05/30/18 02/20/21 History ipratropium-albuterol 1 dose INHALATION Q6H PRN 05/30/18 02/20/21 History metoprolol succinate 25 mg PO BID 05/30/18 02/20/21 History multivitamin 1 tab PO QAM 05/30/18 02/20/21 History albuterol sulfate [Ventolin HFA] 2 puff INHALATION Q6H PRN 06/26/18 02/20/21 History ezetimibe [Zetia] 10 mg PO QAM 06/26/18 02/20/21 History famotidine [Pepcid] 20 mg PO HS PRN 06/26/18 02/20/21 History Metamucil 1 tbsp PO QAM 12/02/20 02/20/21 History Trelegy Ellipta 1 inh INHALATION QAM 12/02/20 02/20/21 History acetylcysteine [NAC] 600 mg PO DAILY 12/02/20 02/20/21 History cephalexin 500 mg PO UD PRN 12/02/20 02/20/21 History cyanocobalamin (vitamin B-12) 1,000 mcg PO QAM 12/02/20 02/20/21 History furosemide 40 mg PO QAM 12/02/20 02/20/21 History spironolactone [Aldactone] 12.5 mg PO QAM 12/02/20 02/20/21 History sulindac 200 mg PO QAM 12/02/20 02/20/21 History Patient History Medical History AAA (abdominal aortic aneurysm) (CARDIO MONITORING) CAD (coronary artery disease) 2015 cath showed no high-grade obstruction -- no stents. Follows with [facility] cardio. Chronic back pain CKD (chronic kidney disease), stage III COPD (chronic obstructive pulmonary disease) HLD (hyperlipidemia) Hx of gout Hx of melanoma of skin Hypertension Neuropathy BLE Osteoarthritis Sleep apnea CPAP -- reports at least 4-5hrs of use every night SOB (shortness of breath) on exertion Surgical History Fusion of spine LUMBAR X 2 H/O esophagogastroduodenoscopy History of adenoidectomy History of cardiac cath 2015- NO STENTS History of partial knee replacement RT History of tonsillectomy Hx of LASIK Status post Mohs surgery Family History Mother Diabetes Brother Family hx of colon cancer Diabetes Other Bladder cancer COPD (chronic obstructive pulmonary disease) Hypertension No family history of adverse response to anesthesia Social History Smoking Status: Former smoker Smoking End Date: OVER 30 YEARS AGO; Second Hand Exposure: No; Do You Dip or Chew Tobacco: No; Tobacco Cessation Education Requested by Patient: No Hx Alcohol Use: No Hx Substance Use: No Preferred Language: Korean Communication Ability: Effective Visual Impairment: No Limitations University Tutor Required: No Beliefs That Will Affect Care: None Current Living Situation: Spouse Feels Safe at Home: Yes Safety Concerns: Feels Safe At This Time Assistive Devices: Cane, CPAP and Glasses Assistive Devices Comment: READING GLASSES Review of Systems Review of Systems: At least ten systems reviewed and negative except as noted in the HPI. Physical Exam Physical Exam: General Appearance: WD/WN, vitals as above, NAD, sitting up in bed, pleasant, conversing easily Head: normocephalic, atraumatic Eyes: normal inspection, PERRL, conjunctivae normal, anicteric sclerae ENT: external ear and nose normal, oropharynx normal Neck: normal visual inspection, trachea midline, no thyromegaly Respiratory: normal respiratory effort, lungs clear to auscultation, no wheeze, rales, rhonchi. No accessory muscle use Cardiovascular: regular rate, rhythm, +systolic murmur, normal peripheral pulses, no BLE edema Abdomen/GI: normal bowel sounds, soft, nontender, no hepatosplenomegaly Extremities/Musculoskeletal: +thoracic spine surgical dressing c/d/i. TEX drain visualized. No cyanosis or clubbing, extremities motor strength 5/5 Neurologic: PERRL, CN's II-XI intact bilaterally and moves all extremities Psychiatric: A+Ox3, euthymic affect Skin: no rashes, normal color, warm/dry Results & Data Results & Data ([place]) Vital Signs (Past 12 Hours) Vital Signs Temp Pulse Pulse Resp BP Pulse Ox Pulse Ox 02/20/21 14:42 36.7 C 19 130/80 96 02/20/21 14:39 95 02/20/21 14:15 36.8 C 86 20 127/80 95 02/20/21 13:55 36.9 C 82 16 142/80 H 95 02/20/21 13:45 36.9 C 85 18 147/80 H 95 02/20/21 13:35 85 18 129/76 65 L 02/20/21 13:25 98 H 18 126/63 94 02/20/21 13:15 37.3 C 91 H 18 166/86 H 94 02/20/21 09:03 36.8 C 87 20 144/83 H 96 Diagnostic Findings Thoracic Spine X-Ray 02/20/21 10:05 [place] thoracic spine 2V CLINICAL HISTORY: T11-12 DECOMPRESSION/FUSION COMPARISON STUDY: Thoracic spine MRI January 26, 2021. FLUOROSCOPY TIME: 23 seconds. FLUOROSCOPIC IMAGES: 3 FINDINGS: Exact localization is difficult given partial visualization of the lumbar spine. These images demonstrate a posterior decompression and 2 level bilateral pedicle screw fusion. No unexpected radiopaque bodies are present. IMPRESSION: Fluoroscopic images demonstrating a posterior decompression and 2 level bilateral pedicle screw fusion. ACT 112: Negative or not required by law. Electronically signed by: Pipe Winn M.D. 02/20/2021 1:25 PM
[2021-02-20] MEDS: SODIUM CHLORIDE 0.9% 1000ML 1,000 ML IV SCH ×2 (15:12→21:49)
[2021-02-20] MEDS: oxyCODONE HCL IR 5 MG TAB (IMMEDIATE RELEASE) PO PRN ×2 (15:14→19:59)
[2021-02-20] MEDS: ACETYLCYSTEINE 600 MG CAP PO SCH (19:58)
[2021-02-20] MEDS: ceFAZolin 2000MG 2,000 MG/15 ML SYR IV SCH (19:58)
[2021-02-20] MEDS: METOPROLOL SUCC 25MG EXT REL TAB PO SCH (19:59)
[2021-02-20] MEDS: CALCIUM 600MG + VIT D 400 IU TAB PO SCH (19:59)
[2021-02-20] MEDS: DOCUSATE SODIUM/SENNA 50/8.6MG TAB PO SCH (19:59)
[2021-02-21] MEDS: oxyCODONE HCL IR 5 MG TAB (IMMEDIATE RELEASE) PO PRN ×6 (00:01→21:33)
[2021-02-21] MEDS: ceFAZolin 2000MG 2,000 MG/15 ML SYR IV SCH (04:32)
[2021-02-21] MEDS: POLYETHYLENE (MIRALAX) 17 GM PACK PO SCH ×3 (04:41→17:29)
[2021-02-21] MEDS: SODIUM CHLORIDE 0.9% 1000ML 1,000 ML IV SCH (04:46)
[2021-02-21 06:12] LABS: Basophils # (auto) 0.01 K/uL (0-0.2); Basophils % (auto) 0.1 %; Eosinophils # (auto) 0.01 K/uL (0-0.5); Eosinophils % (auto) 0.1 %; Hematocrit (blood only) 37.9 % (42-52); Hemoglobin 12.2 g/dL (14.0-18.0); Immature Granulocytes # (auto) 0.08 K/uL (0.00-0.02); Immature Granulocytes % (auto) 0.8 %; Lymphocytes # (auto) 0.83 K/uL (1.2-3.4); Lymphocytes % (auto) 7.9 %; Mean Corpuscular Hemoglobin 32.4 pg (25-34); Mean Corpuscular Hgb Conc 32.2 g/dL (32-36); Mean Corpuscular Volume 100.8 fL (80-100); Monocytes # (auto) 0.57 K/uL (0.11-0.59); Monocytes % (auto) 5.4 %; Neutrophils # (auto) 8.96 K/uL (1.4-6.5); Neutrophils % (auto) 85.7 %; Platelet Count 229 K/uL (130-400); RDW Coefficient of Variation 13.6 % (11.5-14.5); Red Blood Count 3.76 M/uL (4.7-6.1); White Blood Count 10.46 K/uL (4.8-10.8)
[2021-02-21 06:41] LABS: Calcium 9.1 mg/dl (8.5-10.1); Creatinine Clr Calc Pharmacy 55.5 ml/min; Est GFR (African American) 56.2 ml/min; Est GFR (Non-African American) 48.5 ml/min; Potassium 4.7 mmol/L (3.5-5.1)
[2021-02-21] MEDS ORDERED: COUGH DROP (SUGAR FREE) LOZ 24 LOZ/1 BOX BUCCAL ONE (07:36)
--- NOTE | 2021-02-21 08:11 | Orthopedic Progress Note ---
Date of Service February 21, 2021 Assessment & Plan (1) Myelopathy concurrent with and due to spinal stenosis of thoracic region: Patient is doing well postoperative day 1. DVT prophylaxis is in the form of teds and SCDs. Continue with pain control. Maintain TEX drain. We will start physical therapy today. Patient is interested in being discharged to a rehab facility. We will contact social work to start these arrangements. Admission and Anticipated Discharge Date Admission Date: February 20, 2021 Subjective Patient is postoperative day 1 T11-T12 decompression and instrumented fusion. He had an uneventful evening. He reports being up and ambulatory to the restroom without issue. Feet states his legs actually feel stronger. H&H are 12.2 and 37.9 respectively. TEX drain output last shift is 55 cc. No other complaints. Review of Systems Review of Systems: All systems reviewed & are unremarkable except as noted in HPI & below Physical Exam Physical Exam: He is lying in bed in no acute distress Alert and oriented x3 Thoracolumbar dressing is clean dry and intact with functioning TEX drain BRII hose intact bilateral lower extremities Strength is 5 5 bilateral EHL, dorsiflexion, flexion, quadriceps, hamstrings bilaterally Constitutional: WD/WN, vitals as above Eyes: normal visual shipley by confrontation ENMT: external ear and nose normal, oropharynx normal Neck: normal visual inspection Respiratory: normal respiratory effort Cardiovascular: Extremities: normal capillary refill Chest (Breasts): Chest: normal inspection of chest Gastrointestinal (Abdomen): Inspection/Auscultation: abdomen normal to inspection Musculoskeletal: no cyanosis or clubbing, extremities motor strength 5/5 Extremities: extremities normal to inspection Skin: no rashes, warm and dry Neurologic: normal touch/pain/proprioception and moves all extremities Psychiatric: A+Ox3, euthymic affect Results & Data ([facility]) Vital Signs (Past 12 Hours) Vital Signs Temp Pulse Resp BP Pulse Ox 02/21/21 03:44 36.5 C 59 L 20 120/74 99 02/21/21 00:02 36.7 C 02/20/21 22:55 36.1 C L 83 16 125/72 93
[2021-02-21] MEDS: CYANOCOBALAMIN 500 MCG TABLET (VITAMIN B-12) PO SCH (08:28)
[2021-02-21] MEDS: SPIRONOLACTONE 12.5 MG TAB PO SCH (08:29)
[2021-02-21] MEDS: ASPIRIN 81 MG ECTAB PO SCH (08:29)
[2021-02-21] MEDS: DULoxetine HCL 60 MG CAP PO SCH (08:29)
[2021-02-21] MEDS: MULTIVITAMIN TAB PO SCH (08:29)
[2021-02-21] MEDS: ACETYLCYSTEINE 600 MG CAP PO SCH ×2 (08:29→21:32)
[2021-02-21] MEDS: FUROSEMIDE 40 MG TAB PO SCH (08:29)
[2021-02-21] MEDS: EZETIMIBE 10 MG TABLET PO SCH (08:30)
[2021-02-21] MEDS: allopurinoL 300 MG TAB PO SCH (08:30)
[2021-02-21] MEDS: UMECLIDINIUM/VILANTEROL 62.5/25MCG 7 PUFFS/INHALER INH SCH (08:31)
[2021-02-21] MEDS: METOPROLOL SUCC 25MG EXT REL TAB PO SCH ×2 (08:31→21:32)
[2021-02-21] MEDS: FLUTICASONE FUROATE 100MCG 14 PUFFS/INHALER INH SCH (08:32)
[2021-02-21] MEDS: CALCIUM 600MG + VIT D 400 IU TAB PO SCH (21:32)
[2021-02-21] MEDS: DOCUSATE SODIUM/SENNA 50/8.6MG TAB PO SCH (21:32)
[2021-02-22] MEDS: POLYETHYLENE (MIRALAX) 17 GM PACK PO SCH ×5 (00:40→22:39)
[2021-02-22] MEDS: oxyCODONE HCL IR 5 MG TAB (IMMEDIATE RELEASE) PO PRN ×4 (04:07→19:56)
[2021-02-22] MEDS: allopurinoL 300 MG TAB PO SCH (08:34)
[2021-02-22] MEDS: UMECLIDINIUM/VILANTEROL 62.5/25MCG 7 PUFFS/INHALER INH SCH (08:34)
[2021-02-22] MEDS: DULoxetine HCL 60 MG CAP PO SCH (08:34)
[2021-02-22] MEDS: FLUTICASONE FUROATE 100MCG 14 PUFFS/INHALER INH SCH (08:34)
[2021-02-22] MEDS: MULTIVITAMIN TAB PO SCH (08:34)
[2021-02-22] MEDS: SPIRONOLACTONE 12.5 MG TAB PO SCH (08:35)
[2021-02-22] MEDS: ACETYLCYSTEINE 600 MG CAP PO SCH ×2 (08:35→20:35)
[2021-02-22] MEDS: METOPROLOL SUCC 25MG EXT REL TAB PO SCH ×2 (08:35→20:34)
[2021-02-22] MEDS: EZETIMIBE 10 MG TABLET PO SCH (08:35)
[2021-02-22] MEDS: CYANOCOBALAMIN 500 MCG TABLET (VITAMIN B-12) PO SCH (08:35)
[2021-02-22] MEDS: FUROSEMIDE 40 MG TAB PO SCH (08:35)
--- NOTE | 2021-02-22 10:31 | Orthopedic Progress Note ---
Date of Service February 22, 2021 Assessment & Plan (1) Myelopathy concurrent with and due to spinal stenosis of thoracic region: Admission and Anticipated Discharge Date Admission Date: February 20, 2021 This time we will continue with physical therapy occupational therapy and anticipate discharge to rehab Tuesday. Subjective Patient's back pain is controlled leg symptoms are improved Physical Exam Physical Exam: Patient is in the chair at the bedside. Has reasonable strength testing. Appears comfortable. Results & Data ([facility]) Vital Signs (Past 12 Hours) Vital Signs Temp Pulse Resp BP Pulse Ox 02/22/21 07:06 36.5 C 83 18 132/79 93 02/21/21 22:46 36.9 C 82 20 133/78 92
[2021-02-22] MEDS ORDERED: bisacodyL 10 MG SUPP PR PRN (12:53)
[2021-02-22] MEDS: DOCUSATE SODIUM/SENNA 50/8.6MG TAB PO SCH (20:34)
[2021-02-22] MEDS: CALCIUM 600MG + VIT D 400 IU TAB PO SCH (20:34)
--- NOTE | 2021-02-22 21:42 | Hospitalist Progress Note ---
Date of Service February 22, 2021 Assessment & Plan (1) S/P spinal surgery: POD#2 s/p thoracic decompression with bilateral medial facetectomies and foraminotomies and posterior spinal fusion of T11-T12 by Dr. Denton Per ortho for pain control, wound care, anticoagulation and activities Monitor H&H (EBL: 100, pre-op hgb 14.8) Continue incentive spirometry, PT/OT when appropriate Likely dc to rehab when bed available. (2) CAD (coronary artery disease): Chronic, stable, continue medical management with home aspirin, metoprolol, Zetia. Patient notably statin intolerant. (3) COPD (chronic obstructive pulmonary disease): Stable, no acute exacerbation. Oxygenating well on room air. Continue home inhalers and bronchodilators as needed shortness of breath or wheezing. (4) CKD (chronic kidney disease), stage III: Renal function at baseline, Avoid nephrotoxic agents if able (5) Hypertension: At goal, continue Lasix, Aldactone and Toprol per home regimen. (6) Anxiety: Continue duloxetine per home regimen (7) ARIANA (obstructive sleep apnea): CPAP HS (8) DVT prophylaxis: SCDs, full code Disposition-to rehab when bed available, patient is medically stable for discharge. Thank you for this consultation. Trinity Osullivan DO [facility] Hospitalist Admission and Anticipated Discharge Date Admission Date: February 20, 2021 Subjective 80-year-old man status post T1-T12 posterior decompression and fusion by Dr. Denton on 02/20. Patient reports pain is controlled with current pain regimen. He is still on dexamethasone. Plan for discharge to rehab tomorrow. Drain still in place. ROS otherwise negative. Review of Systems Review of Systems: All systems reviewed & are unremarkable except as noted in Subjective Physical Exam Physical Exam: CONSTITUTIONAL: WNWD, vitals as above, generally well- appearing EYES: normal conjunctivae, no scleral icterus ENT: external ear and nose normal, MMM RESPIRATORY: clear to auscultation bilaterally, no crackles, rales or wheezes, normal respiratory effort CARDIOVASCULAR: regular rate and rhythm, S1 and 2 heard without murmurs, gallops or rubs, no JVD, no peripheral edema GASTROINTESTINAL: soft, nontender, nondistended, no guarding MUSCULOSKELETAL: head is normocephalic and atraumatic, neck supple, normal palpation of chest wall without tenderness SKIN: warm and dry, TEX drain in place. NEUROLOGIC: CN 2-12 grossly intact, no sensory deficit, normal cognition, normal speech, no tremor. No gross focal deficits. PSYCHIATRIC: alert cooperative and oriented to person, place and time. Results & Data Results & Data ([facility]) Vital Signs (Past 12 Hours) Vital Signs Temp Pulse Resp BP Pulse Ox 02/22/21 15:42 36.5 C 79 16 116/67 94 Medications Administered Current Inpatient Medications Acetaminophen (Acetaminophen 500 Mg Tab) 1,000 mg PO Q8H PRN PRN Reason: MILD Pain Scale 1,2,3 & Pre PT Stop: 03/22/21 14:36 Last Admin: 02/22/21 07:29 Dose: 1,000 mg Documented by: Acetylcysteine (Acetylcysteine 600 Mg Cap) 600 mg PO BID [facility] Stop: 03/22/21 20:59 Last Admin: 02/22/21 20:35 Dose: 600 mg Documented by: Al Hydrox/Mg Hydrox/Simethicone (Aluminum/Magnesium Susp 30 Ml Udc) 30 ml PO Q6H PRN PRN Reason: Dyspepsia Stop: 03/22/21 14:36 Allopurinol (Allopurinol 300 Mg Tab) 450 mg PO QAM [facility] Stop: 03/23/21 08:59 Last Admin: 02/22/21 08:34 Dose: 450 mg Documented by: Aspirin (Aspirin 81 Mg Ectab) 81 mg PO Q2D@0900 [facility] Stop: 03/23/21 08:59 Last Admin: 02/21/21 08:29 Dose: 81 mg Documented by: Bisacodyl (Bisacodyl 10 Mg Supp) [address] DAILY PRN PRN Reason: Constipation Stop: 03/24/21 12:52 Cyanocobalamin (Cyanocobalamin 500 Mcg Tablet (Vitamin B-12)) 1,000 mcg PO QAM [facility] Stop: 03/23/21 08:59 Last Admin: 02/22/21 08:35 Dose: 1,000 mcg Documented by: Diphenhydramine HCl (Diphenhydramine Capsule 25 Mg Cap) 25 mg PO Q6H PRN PRN Reason: Allergic Rhinitis/Insomnia Stop: 03/22/21 14:36 Docusate Sodium (Docusate Sodium 100 Mg Cap) 100 mg PO BID PRN PRN Reason: Constipation Stop: 03/22/21 14:36 Duloxetine HCl (Duloxetine Hcl 60 Mg Cap) 60 mg PO QAM [facility] Stop: 03/23/21 08:59 Last Admin: 02/22/21 08:34 Dose: 60 mg Documented by: Ezetimibe (Ezetimibe 10 Mg Tablet) 10 mg PO QAM [facility] Stop: 03/23/21 08:59 Last Admin: 02/22/21 08:35 Dose: 10 mg Documented by: Famotidine (Famotidine 20 Mg Tab) 20 mg PO HS PRN PRN Reason: Acid Reflux Stop: 03/22/21 14:36 Fluticasone Furoate (Fluticasone Furoate 100mcg 14 Puffs/Inhaler) 1 puffs INH DAILY [facility] Stop: 03/23/21 08:59 Last Admin: 02/22/21 08:34 Dose: 1 puffs Documented by: Furosemide (Furosemide 40 Mg Tab) 40 mg PO QAM [facility] Stop: 03/23/21 08:59 Last Admin: 02/22/21 08:35 Dose: 40 mg Documented by: Hydromorphone HCl (Hydromorphone Inj 0.5 Mg/0.5 Ml Syr) 0.5 mg IV Q3H PRN PRN Reason: MOD pain (scale 4-6) & Pre PT Stop: 03/06/21 14:36 Hydromorphone HCl (Hydromorphone Inj 1 Mg/Ml Syringe) 1 mg IV Q3H PRN PRN Reason: severe pain (scale 7-10) Stop: 03/06/21 14:36 Hydroxyzine HCl (Hydroxyzine Hcl 25 Mg Tab) 25 mg PO Q8H PRN PRN Reason: Anxiety Stop: 03/22/21 14:36 Lorazepam (Ativan) 0.5 mg in 1 mls @ 1 mls/min IV Q8H PRN PRN Reason: Sedation/Anxiety Stop: 03/22/21 14:36 Promethazine HCl 12.5 mg/ (Sodium Chloride) 50.5 mls @ 202 mls/hr IV Q6H PRN PRN Reason: Nausea &/or Vomiting Stop: 03/22/21 14:36 Dexamethasone 8 mg/ Syringe 2 mls @ 1 mls/min IV DAILY [facility] Stop: 03/25/21 08:59 Influenza Virus Vaccine Quadrival (Do Not Administer Flu Vaccine) 1 ea N/A PRN PRN PRN Reason: Notification Stop: 03/22/21 14:36 Lorazepam (Lorazepam 0.5 Mg Tab) 0.5 mg PO Q8H PRN PRN Reason: sedation/anxiety Stop: 03/22/21 14:36 Magnesium Hydroxide (Magnesium Hydroxide Susp 30 Ml Udc) 30 ml PO Q24H PRN PRN Reason: Constipation Stop: 03/22/21 14:36 Last Admin: 02/22/21 20:36 Dose: 30 ml Documented by: Metoclopramide HCl (Metoclopramide Hcl Inj 5 Mg/Ml 2 Ml Vial) 10 mg IV Q6H PRN PRN Reason: Nausea &/or Vomiting Stop: 03/22/21 14:36 Metoprolol Succinate (Metoprolol Succ 25mg Ext Rel Tab) 25 mg PO BID [facility] Stop: 03/22/21 20:59 Last Admin: 02/22/21 20:34 Dose: 25 mg Documented by: Multivitamins (Multivitamin Tab) 1 tab PO QAM [facility] Stop: 03/23/21 08:59 Last Admin: 02/22/21 08:34 Dose: 1 tab Documented by: Multivitamins/Minerals (Calcium 600mg + Vit D 400 Iu Tab) 1 tab PO HS [facility] Stop: 03/22/21 20:59 Last Admin: 02/22/21 20:34 Dose: 1 tab Documented by: Naloxone HCl (Naloxone Hcl 0.4 Mg/1 Ml Vial/Carp) 0.1 mg IV Q5M PRN PRN Reason: Oversedation/respiratory dep Stop: 03/22/21 14:36 Ondansetron HCl (Ondansetron Inj 2 Mg/Ml 2 Ml Vial) 4 mg IV Q6H PRN PRN Reason: Nausea &/or Vomiting Stop: 03/22/21 14:36 Ondansetron HCl (Ondansetron 4 Mg Od Tab) 4 mg PO Q6H PRN PRN Reason: Nausea Stop: 03/22/21 14:36 Oxycodone HCl (Oxycodone Hcl Ir 5 Mg Tab (Immediate Release)) 5 - 10 mg PO Q4H PRN PRN Reason: Pain & Pre PT Stop: 03/06/21 14:36 Last Admin: 02/22/21 19:56 Dose: 10 mg Documented by: Pneumococcal Polyvalent Vaccine (Do Not Administer Pneumococcal Vaccine) 1 ea N/A PRN PRN PRN Reason: Notification Stop: 03/22/21 14:36 Polyethylene Glycol (Polyethylene (Miralax) 17 Gm Pack) 17 gm PO Q6 [facility] Stop: 03/23/21 05:59 Last Admin: 02/22/21 17:39 Dose: 17 gm Documented by: Senna/Docusate Sodium (Docusate Sodium/Senna 50/8.6mg Tab) 2 tab PO HS [facility] Stop: 03/22/21 20:59 Last Admin: 02/22/21 20:34 Dose: 2 tab Documented by: Sodium Biphosphate/Sodium Phosphate (Sod Phosphate/Sod Biphosphate Enema 132 Ml Btl) [address] ONE PRN PRN Reason: Constipation Stop: 03/22/21 14:36 Spironolactone (Spironolactone 12.5 Mg Tab) 12.5 mg PO QAM [facility] Stop: 03/23/21 08:59 Last Admin: 02/22/21 08:35 Dose: 12.5 mg Documented by: Tramadol HCl (Tramadol Hcl 50 Mg Tablet) 50 - 100 mg PO Q4H PRN PRN Reason: Moderate-Severe pain & Pre PT Stop: 03/22/21 14:36 Umeclidinium/Vilanterol (Umeclidinium/Vilanterol 62.5/25mcg 7 Puffs/Inhaler) 1 puffs INH DAILY [facility] Stop: 03/23/21 08:59 Last Admin: 02/22/21 08:34 Dose: 1 puffs Documented by:
[2021-02-23] MEDS: oxyCODONE HCL IR 5 MG TAB (IMMEDIATE RELEASE) PO PRN (04:54)
[2021-02-23] MEDS: POLYETHYLENE (MIRALAX) 17 GM PACK PO SCH ×3 (04:57→17:14)
[2021-02-23] MEDS: dexAMETHasone 8 MG in SYRINGE 0 ML IV SCH (08:10)
[2021-02-23] MEDS: ACETYLCYSTEINE 600 MG CAP PO SCH ×2 (08:11→20:26)
[2021-02-23] MEDS: CYANOCOBALAMIN 500 MCG TABLET (VITAMIN B-12) PO SCH (08:11)
[2021-02-23] MEDS: DULoxetine HCL 60 MG CAP PO SCH (08:11)
[2021-02-23] MEDS: ASPIRIN 81 MG ECTAB PO SCH (08:11)
[2021-02-23] MEDS: EZETIMIBE 10 MG TABLET PO SCH (08:12)
[2021-02-23] MEDS: FUROSEMIDE 40 MG TAB PO SCH (08:12)
[2021-02-23] MEDS: allopurinoL 300 MG TAB PO SCH (08:13)
[2021-02-23] MEDS: MULTIVITAMIN TAB PO SCH (08:13)
[2021-02-23] MEDS: SPIRONOLACTONE 12.5 MG TAB PO SCH (08:13)
[2021-02-23] MEDS: METOPROLOL SUCC 25MG EXT REL TAB PO SCH ×2 (08:13→20:26)
[2021-02-23] MEDS: UMECLIDINIUM/VILANTEROL 62.5/25MCG 7 PUFFS/INHALER INH SCH (08:14)
[2021-02-23] MEDS: FLUTICASONE FUROATE 100MCG 14 PUFFS/INHALER INH SCH (08:15)
--- NOTE | 2021-02-23 13:56 | Orthopedic Progress Note ---
Date of Service February 23, 2021 Assessment & Plan (1) Myelopathy concurrent with and due to spinal stenosis of thoracic region: Admission and Anticipated Discharge Date Admission Date: February 20, 2021 This time we are awaiting approval for rehab. Hopefully this will happen today or first thing in the morning he can transfer tomorrow. Subjective Back pain is controlled leg symptoms steadily improving. Physical Exam Physical Exam: Patient in the chair at the bedside. Is good strength testing. Appears comfortable. Results & Data ([facility]) Vital Signs (Past 12 Hours) Vital Signs Temp Pulse Resp BP Pulse Ox 02/23/21 08:06 36.6 C 89 18 138/77 88 L
--- NOTE | 2021-02-23 14:48 | Hospitalist Progress Note ---
Date of Service February 23, 2021 Assessment & Plan (1) S/P spinal surgery: POD#2 s/p thoracic decompression with bilateral medial facetectomies and foraminotomies and posterior spinal fusion of T11-T12 by Dr. Denton Per ortho for pain control, wound care, anticoagulation and activities Monitor H&H (EBL: 100, pre-op hgb 14.8) Continue incentive spirometry, PT/OT when appropriate Currently awaiting placement to rehab. (2) CAD (coronary artery disease): Chronic, stable, continue medical management with home aspirin, metoprolol, Zetia. Patient notably statin intolerant. (3) COPD (chronic obstructive pulmonary disease): Denies any shortness of breath. Currently patient is on room air. Continue with bronchodilators. (4) CKD (chronic kidney disease), stage III: Renal function at baseline, Avoid nephrotoxic agents if able (5) Hypertension: At goal, continue Lasix, Aldactone and Toprol per home regimen. (6) Anxiety: Continue duloxetine per home regimen (7) ARIANA (obstructive sleep apnea): CPAP HS (8) DVT prophylaxis: SCDs, full code Admission and Anticipated Discharge Date Admission Date: February 20, 2021 Subjective Patient is doing okay this morning. Resting comfortably. His primary issue is pain. Have not had a bowel movement yet. Denies any nausea or vomiting. Rest of the review of systems negative Review of Systems Review of Systems: All systems reviewed & are unremarkable except as noted in HPI & below Physical Exam Physical Exam: General: A&Ox3. HENT: NCAT, MMM, EOMI Eyes: PERRLA Neck: Supple, normal range of motion CVS: normal rate and rhythm Resp: b/l good breath sounds Abdomen: Soft, ND/NT, +BS Extremities: No c/c/e Neuro: face symmetric, no focal deficit Skin: warm and dry, no rashes/lesions/errythema MSK: normal ROM, no joint swelling/erythema Results & Data Results & Data ([facility]) Vital Signs (Past 12 Hours) Vital Signs Temp Pulse Resp BP Pulse Ox 02/23/21 08:06 36.6 C 89 18 138/77 88 L
[2021-02-23] MEDS: DOCUSATE SODIUM/SENNA 50/8.6MG TAB PO SCH (20:25)
[2021-02-23] MEDS: CALCIUM 600MG + VIT D 400 IU TAB PO SCH (20:26)
--- NOTE | 2021-02-24 08:12 | Orthopedic Progress Note ---
Date of Service February 24, 2021 Assessment & Plan (1) Myelopathy concurrent with and due to spinal stenosis of thoracic region: Admission and Anticipated Discharge Date Admission Date: February 20, 2021 At this time he is safe to be discharged from the hospital and to rehab. Hopefully get this approved and addressed today. Subjective Patient's back pain is controlled. Denies any leg pain. Physical Exam Physical Exam: On exam is good strength testing. Is in bed. Results & Data ([facility]) Vital Signs (Past 12 Hours) Vital Signs Temp Pulse Pulse Pulse Resp BP BP 02/24/21 07:43 36.5 C 66 18 159/89 H 02/23/21 23:07 36.6 C 79 16 151/91 H 02/23/21 20:24 103 H 135/79 Pulse Ox 02/24/21 07:43 95 02/23/21 23:07 92 02/23/21 20:24
[2021-02-24] MEDS: FLUTICASONE FUROATE 100MCG 14 PUFFS/INHALER INH SCH (08:53)
[2021-02-24] MEDS: dexAMETHasone 8 MG in SYRINGE 0 ML IV SCH ×2 (08:53→10:22)
[2021-02-24] MEDS: UMECLIDINIUM/VILANTEROL 62.5/25MCG 7 PUFFS/INHALER INH SCH (08:53)
[2021-02-24] MEDS: SPIRONOLACTONE 12.5 MG TAB PO SCH (08:54)
[2021-02-24] MEDS: ACETYLCYSTEINE 600 MG CAP PO SCH ×2 (08:54→20:13)
[2021-02-24] MEDS: MULTIVITAMIN TAB PO SCH (08:54)
[2021-02-24] MEDS: EZETIMIBE 10 MG TABLET PO SCH (08:54)
[2021-02-24] MEDS: METOPROLOL SUCC 25MG EXT REL TAB PO SCH ×2 (08:54→20:13)
[2021-02-24] MEDS: allopurinoL 300 MG TAB PO SCH (08:55)
[2021-02-24] MEDS: DULoxetine HCL 60 MG CAP PO SCH (08:56)
[2021-02-24] MEDS: FUROSEMIDE 40 MG TAB PO SCH (08:56)
[2021-02-24] MEDS: DOCUSATE SODIUM 100 MG CAP PO PRN (08:58)
[2021-02-24] MEDS: oxyCODONE HCL IR 5 MG TAB (IMMEDIATE RELEASE) PO PRN ×3 (08:58→22:47)
[2021-02-24] MEDS: CYANOCOBALAMIN 500 MCG TABLET (VITAMIN B-12) PO SCH (09:00)
--- NOTE | 2021-02-24 15:31 | Hospitalist Progress Note ---
Date of Service February 24, 2021 Assessment & Plan (1) S/P spinal surgery: POD#3 s/p thoracic decompression with bilateral medial facetectomies and foraminotomies and posterior spinal fusion of T11-T12 by Dr. Dentno Per ortho for pain control, wound care, anticoagulation and activities Monitor H&H (EBL: 100, pre-op hgb 14.8) Continue incentive spirometry, patient is currently awaiting placement to rehab. Continue to work with PT/OT. (2) CAD (coronary artery disease): Chronic, stable, continue medical management with home aspirin, metoprolol, Zetia. Patient notably statin intolerant. (3) COPD (chronic obstructive pulmonary disease): Denies any shortness of breath. Currently patient is on room air. Continue with bronchodilators. (4) CKD (chronic kidney disease), stage III: Renal function at baseline, Avoid nephrotoxic agents if able (5) Hypertension: At goal, continue Lasix, Aldactone and Toprol per home regimen. (6) Anxiety: Continue duloxetine per home regimen (7) ARIANA (obstructive sleep apnea): CPAP HS (8) DVT prophylaxis: SCDs, full code Admission and Anticipated Discharge Date Admission Date: February 20, 2021 Subjective Doing okay this morning. Pain is well controlled. Did have a bowel movement. Currently awaiting placement. Physical Exam Physical Exam: General: A&Ox3. HENT: NCAT, MMM, EOMI Eyes: PERRLA Neck: Supple, normal range of motion CVS: normal rate and rhythm Resp: b/l good breath sounds Abdomen: Soft, ND/NT, +BS Extremities: No c/c/e Neuro: face symmetric, no focal deficit Skin: warm and dry, no rashes/lesions/errythema MSK: normal ROM, no joint swelling/erythema Results & Data Results & Data ([facility]) Vital Signs (Past 12 Hours) Vital Signs Temp Pulse Pulse Resp BP BP Pulse Ox 02/24/21 11:40 37.2 C 77 18 146/78 H 94 02/24/21 07:43 36.5 C 66 18 159/89 H 95
[2021-02-24] MEDS: CALCIUM 600MG + VIT D 400 IU TAB PO SCH (20:13)
[2021-02-24] MEDS: DOCUSATE SODIUM/SENNA 50/8.6MG TAB PO SCH (20:13)
[2021-02-25] MEDS: oxyCODONE HCL IR 5 MG TAB (IMMEDIATE RELEASE) PO PRN (09:10)
[2021-02-25] MEDS: ACETYLCYSTEINE 600 MG CAP PO SCH (09:11)
[2021-02-25] MEDS: allopurinoL 300 MG TAB PO SCH (09:11)
[2021-02-25] MEDS: CYANOCOBALAMIN 500 MCG TABLET (VITAMIN B-12) PO SCH (09:12)
[2021-02-25] MEDS: ASPIRIN 81 MG ECTAB PO SCH (09:12)
[2021-02-25] MEDS: DULoxetine HCL 60 MG CAP PO SCH (09:13)
[2021-02-25] MEDS: FUROSEMIDE 40 MG TAB PO SCH (09:13)
[2021-02-25] MEDS: EZETIMIBE 10 MG TABLET PO SCH (09:13)
[2021-02-25] MEDS: METOPROLOL SUCC 25MG EXT REL TAB PO SCH (09:14)
[2021-02-25] MEDS: MULTIVITAMIN TAB PO SCH (09:14)
[2021-02-25] MEDS: FLUTICASONE FUROATE 100MCG 14 PUFFS/INHALER INH SCH (09:15)
[2021-02-25] MEDS: SPIRONOLACTONE 12.5 MG TAB PO SCH (09:15)
[2021-02-25] MEDS: UMECLIDINIUM/VILANTEROL 62.5/25MCG 7 PUFFS/INHALER INH SCH (09:15)
[2021-02-25] MEDS: dexAMETHasone 8 MG in SYRINGE 0 ML IV SCH (09:16)
[2021-02-25] MEDS: DOCUSATE SODIUM 100 MG CAP PO PRN (10:00)
--- NOTE | 2021-02-25 10:56 | Hospitalist Progress Note ---
Date of Service February 25, 2021 Assessment & Plan (1) S/P spinal surgery: POD#5 s/p thoracic decompression with bilateral medial facetectomies and foraminotomies and posterior spinal fusion of T11-T12 by Dr. Denton Pain control, wound care, anticoagulation and activities per ortho Continue incentive spirometry Awaiting placement vs dc home (2) CAD (coronary artery disease): Chronic, stable, continue medical management with home aspirin, metoprolo l, Zetia. Patient notably statin intolerant. (3) COPD (chronic obstructive pulmonary disease): Denies any shortness of breath. Currently patient is on room air. Continue with bronchodilators. (4) CKD (chronic kidney disease), stage III: Renal function at baseline, Avoid nephrotoxic agents if able (5) Hypertension: BP was elevated earlier but improved after receiving pain meds Continue Lasix, Aldactone and Toprol per home regimen. (6) Anxiety: Continue duloxetine per home regimen (7) ARIANA (obstructive sleep apnea): CPAP HS (8) DVT prophylaxis: SCDs, full code Admission and Anticipated Discharge Date Admission Date: February 20, 2021 Subjective Patient seen and examined this morning. Reports back pain is well controlled. Denies any other complaints Review of Systems Review of Systems: All systems reviewed & are unremarkable except as noted in Subjective Physical Exam Constitutional: + well hydrated and + obese; no acute distress Eyes: PERRL, conjunctivae normal, anicteric sclerae ENMT: external ear and nose normal, oropharynx normal Respiratory: normal respiratory effort, lungs clear to auscultation Cardiovascular: Rate/Rhythm: regular rate and regular rhythm S1 S2 Gastrointestinal (Abdomen): normal bowel sounds, soft, nontender, no hepatosplenomegaly Musculoskeletal: Clean dressing over surgical site Right ankle edema (reported this is chronic) Neurologic: PERRL, EOMI, accommodation nl, no face palsy, no dysarthria Psychiatric: A+Ox3, euthymic affect Results & Data Results & Data ([facility]) Vital Signs (Past 12 Hours) Vital Signs Temp Pulse Pulse Resp BP Pulse Ox 02/25/21 10:50 77 134/75 02/25/21 08:53 36.8 C 81 16 131/77 96
--- NOTE | 2021-02-25 13:43 | Discharge Summary ---
Date of Service February 22, 2021 Admission HPI Per Admitting Provider This is an 80-year-old male well-known to me the presents with worsening back pain leg weakness and numbness is here for surgical invention. Principal Diagnosis Thoracic spinal stenosis with myelopathy Discharge Data Allergies Allergy/AdvReac Type Severity Reaction Status Date / Time Eusouvc-Vde-Aep Reductase AdvReac Intermediate Dizziness Verified 02/20/21 08:52 Inhibitor Consultations 02/20/21 14:37 Consult Hospitalist Routine Procedures Performed Operation Date: 02/20/21 10:05 Actual Procedures p T11-T12 Posterior Decompression and Fusion, Application of Bone Morphogenetic Protein, Spinal Cord Monitoring(Not Applicable) - Shaun Denton DO Ordered Studies 02/20/21 10:05 FL thoracic spine 2V Routine Hospital Course (1) Myelopathy concurrent with and due to spinal stenosis of thoracic region: Patient went thoracic decompression and fusion tolerates well second orthopedic for possibly. Postop day 1. To tolerate therapy progressed probably throughout his postoperative course TEX drain decreased appropriately. Subsequent discharge to senior living facility. Discharge orders instructions from the chart for further review. Total Time Total Time Spent Total Time Spent (In Minutes): 20 minutes Discharge Plan Discharge Items Patient Disposition: Transfer Longterm Fac Reason For Visit: Interverterbral Disc Disorders with Myelopathy Discharge Diagnosis: Thoracic myelopathy Activity: As commented below Non-emergency contact: Primary Care Provider Call non-emergency contact if: you have any medication questions Follow-up/Referrals: Hank Burden DO [Primary Care Provider] - Trinity Osullivan DO [Hospitalist] - Diet: Regular Addtl Attending Provider Instructions: ACTIVITY RECOMMENDATIONS: SELF CARE INSTRUCTIONS AFTER THORACIC/LUMBAR FUSIONS 1. You may walk to your tolerance. It is good exercise for your legs and back. Expect some back and intermittent leg aches and pains. 2. You may perform "counter-top" level activities (make a sandwich, amber with a project, etc.). 3. No bending or lifting of more than 10 pounds or back twisting of any nature (roll like a log when turning in bed). 4. You may ride in a car for 20-30 minutes at a time. No driving until after your first visit with your doctor. 5. Frequent changes of position and restricting sitting to 30 minutes at a time will help limit the amount of back spasms and stiffness you may experience. 6. You may discontinue the use of ambulatory aids (cane, crutches, etc.) once your strength and confidence allow. 7. You may associate engineer the shower and let water strike your incision when you arrive home at least once daily. Do not take a tub bath, sit in a hot tub or go into a swimming pool until after your first recheck in the office. SPECIAL CARE INSTRUCTIONS: VERY IMPORTANT TO READ AND REVIEW A. Your surgical incision has been closed with a cosmetic suture under the skin that will dissolve in about 6 weeks. In 14 days, you can use a pair of clean scissors and cut the suture that is left outside of the skin at the ends of your incision. 1. The small skin tapes can be removed 7 days after surgery if they have not fallen off by that point. 2. You may keep the wound open to air as much as possible to promote healing after post-op day number 5 unless told otherwise by your doctor. 3. If you think the wound looks like it is becoming infected (redness or worsening drainage) and/or you are experiencing fever, chill or worsening back pain and muscle spasms, contact the office so that we may evaluate you as soon as possible. B. Complications are uncommon, but please contact us if you have any signs or symptoms of: 1. wound infection (fever higher than 102.5 degrees F, redness, separation of wound, drainage, or increasing pain from the incision) 2. blood clots in legs (pain, swelling, redness and warmth in legs) 3. urinary tract infection (fever higher than 102.5 degrees F, burning upon urination or increased frequency of urination) 4. nerve problems (inability to walk on your toes or heels, numbness, loss of bowel or bladder control) 5. any other symptoms that concern you C. Please call the office at if you have any concerns or questions about your operation or recovery. D. No smoking! Smoking drastically decreases the chance of a solid fusion. E. Do not take any anti-inflammatory medications (Indocin, Advil, Motrin, Aspirin, Naprosyn, etc.) as these may inhibit the chance of a solid fusion. Tylenol is okay to take for pain. MANAGING PAIN AFTER SPINAL SURGERY 1. Narcotic medication is intended for short-term use and will be provided for surgical pain. Surgical pain usually lasts for a period of 4-6 weeks. Narcotic medication includes Percocet, Vicodin, Darvocet, Tylenol #3 or Lortab. 2. Longer-term pain is more appropriately treated with non-narcotic medication such as Tylenol ES. 3. Muscle spasm is not appropriately treated with narcotics. Muscle relaxers such as Soma, Flexeril or Skelaxin can be used along with Tylenol ES. 4. Remember that we all live with some "aches and pains". This is not unusual or uncommon after an injury or as we get older. a. Back pain is expected and may include muscle spasms for 4 to 6 weeks after surgery. The pain should gradually improve. If the pain worsens for no apparent reason, please contact the office. b. Intermittent leg pain may also be experienced and should not be concerned about unless it worsens for no apparent reason. If so, please contact the office. 5. We will provide appropriate medication within the normal guidelines of their prescribed use. We will also be very cautious and aware of potential abuse and extended duration of patients' medication needs. a. Pain medications are for your comfort and to assist with sleep and rest so that the tissue can heal. They are not provided in order to return to normal activity and should not be used through the day. To do so or worsening pain at night can result from ongoing tissue damage and developm ent of tolerance to the prescribed medicine. 6. Please allow 2-3 days to process refills. Prescriptions will not be mailed but must be picked up at the office. FOLLOW UP VISIT: Keep your scheduled follow-up appointment. Any questions, please call the office at . Pending Studies at Discharge: No Stand-Alone Forms: My [facility] Skilled Items Patient informed of condition?: Yes DNR: No Discharge Level of Care: Skilled Communicable Disease: No Discharge Prognosis: Improving Lines: None Urinary Catheter: No Medications and DC Order Prescriptions: New tramadol 50 mg tablet 50 mg PO Q6H PRN (Reason: pain, moderate) Qty: 30 RF: 0 oxycodone 5 mg tablet 5 mg PO Q6H PRN (Reason: pain, severe) Qty: 30 RF: 0 tramadol 50 mg tablet 50 mg PO Q6H PRN (Reason: pain, moderate) Qty: 30 RF: 0 oxycodone 5 mg tablet 5 mg PO Q6H PRN (Reason: pain, severe) Qty: 30 RF: 0 Continued multivitamin Tablet 1 tab PO QAM RF: 0 aspirin 81 mg Tablet,Delayed Release (Dr/Ec) 81 mg PO Q2D RF: 0 allopurinol 300 mg Tablet 1.5 tab PO QAM RF: 0 metoprolol succinate 25 mg Tablet Extended Release 24 Hr 25 mg PO BID RF: 0 duloxetine [Cymbalta] 30 mg Capsule,Delayed Release(Dr/Ec) 60 mg PO QAM RF: 0 calcium carbonate-vitamin D3 [Calcium 500 + D] 500 mg(1,250mg) -200 unit Tablet 1 tab PO HS RF: 0 ipratropium-albuterol 0.5 mg-3 mg(2.5 mg base)/3 mL Solution For Nebulization 1 dose Inhalation Q6H PRN (Reason: Shortness Of Breath) RF: 0 docusate sodium [Colace] 100 mg Capsule 100 mg PO BID PRN (Reason: Constipation) RF: 0 albuterol sulfate [Ventolin HFA] 90 mcg/actuation Hfa Aerosol Inhaler 2 puff INHALATION Q6H PRN (Reason: Shortness Of Breath Or Wheezing) RF: 0 ezetimibe [Zetia] 10 mg Tablet 10 mg PO QAM RF: 0 famotidine [Pepcid] 20 mg Tablet 20 mg PO HS PRN (Reason: Acid Reflux) RF: 0 furosemide 40 mg tablet 40 mg PO QAM RF: 0 Trelegy Ellipta 100-62.5-25 mcg Blister With Device 1 inh INHALATION QAM RF: 0 cyanocobalamin (vitamin B-12) 1,000 mcg Tablet 1,000 mcg PO QAM RF: 0 sulindac 200 mg Tablet 200 mg PO QAM RF: 0 acetylcysteine [NAC] 600 mg Capsule 600 mg PO DAILY RF: 0 Metamucil 3.4 gram/5.4 gram Powder 1 tbsp PO QAM RF: 0 spironolactone [Aldactone] 25 mg Tablet 12.5 mg PO QAM RF: 0 cephalexin 500 mg Tablet 500 mg PO UD PRN (Reason: Other) RF: 0 Discharge Orders: Discharge Order (Routine); Ordered 02/25/21 Ordered By: Shaun Denton Admission Data Admit Date/Time: 02/20/21 13:33 Attending Provider: Shaun Denton Admit Provider: Shaun Denton Primary Care Provider: Hank Burden Other Providers: [facility] ; [facility] ; Evelyn Iqbal I. Other Interventions: Discharge Summary Assessment (RN) Last Done: 02/25/21 13:34
== END 2021-02-25 13:58 | DRG 460 ==
LOC: ASU 08:07 → 3E 13:33

== ENCOUNTER 2023-04-07 09:52 | Inpatient (IN) ==
[2023-04-07 11:19] LABS: Basophils # (auto) 0.05 K/uL (0-0.2); Basophils % (auto) 0.5 %; Eosinophils # (auto) 0.26 K/uL (0-0.50); Eosinophils % (auto) 2.8 %; Hematocrit (blood only) 43.8 % (42.0-52.0); Hemoglobin 14.1 g/dl (14.0-18.0); Immature Granulocytes # (auto) 0.09 K/uL (0.01-0.20); Lymphocytes # (auto) 0.67 K/uL (1.2-3.4); Lymphocytes % (auto) 7.2 %; Mean Corpuscular Hemoglobin 32.9 pg (25.0-34.0); Mean Corpuscular Hgb Conc 32.2 g/dL (32.0-36.0); Mean Corpuscular Volume 102.3 fL (80.0-100.0); Mean Platelet Volume 9.3 fL (9.4-12.4); Monocytes # (auto) 0.53 K/uL (0.11-0.59); Monocytes % (auto) 5.7 %; Neutrophils # (auto) 7.76 K/uL (1.40-6.50); Neutrophils % (auto) 82.8 %; Platelet Count 194 K/uL (130-400); RDW Coefficient of Variation 14.1 % (11.5-14.5); RDW Standard Deviation 52.9 fL (36.4-46.3); Red Blood Count 4.28 M/uL (4.70-6.10); White Blood Count 9.36 K/ul (4.8-10.8)
[2023-04-07] MEDS ORDERED: SODIUM CHLORIDE 0.9% 1000ML 500 ML IV ONE (11:24)
--- NOTE | 2023-04-07 11:36 | Emergency Department Note ---
Impression & Plan Altered mental status, Hypertension, Weakness, Hypoxia ED Provider Note NAME: ИВАН ZHANG AGE: 82 SEX: M : 1940 ARRIVES VIA: Ambulance INFORMANT: [Patient][family] ED PROVIDER(S): [Matias Hazel MD] CHIEF COMPLAINT: Altered mental state HISTORY OF PRESENT ILLNESS: The patient is an 82-year-old male who states that he has had progressive weakness to the point where he can barely even get to the bathroom with his walker. This has been ongoing for months. Last evening, the patient did not quite seem himself and complained of a headache and some nausea. This morning, for about an hour, from 730-830, he was confused and disoriented. When EMS arrived, he was getting better. He was brought to the hospital. His family states he now seems back to baseline. At no point was there any speech slur or difficulty with speech. He did not have focal weakness or facial droop. He did not lose consciousness. The patient denies any pain, there has been no fever, no vomiting or diarrhea, he has not been short of breath, no urinary complaints. No medication changes. The patient states that he has become too weak to really be at home, he wonders if he may benefit from a [facility] admission for strengthening. PMHx/PSHx: See Below SOCIAL HISTORY: See Below. PHYSICAL EXAM: GENERAL: Patient is in no acute distress. HEENT: No acute trauma, normocephalic atraumatic, mucous membranes moist, no nasal congestion. NECK: No stridor, no adenopathy, no meningismus, trachea is midline. LUNGS: Scattered crackles at the left base, no wheezing, no respiratory distress. HEART: No murmurs, irregular rhythm, normal rate. ABDOMEN: Soft, nontender, bowel sounds positive, no peritonitis. EXTREMITIES: No cyanosis, moderate bilateral pedal edema, full range of motion of all the joints without pain or difficulty, no signs for acute trauma. NEUROLOGIC: Oriented x 3, no acute motor or sensory deficits, no focal weakness. No extremity drift or speech slur, no cerebellar dysfunction. Excellent historian. SKIN: No rash, no jaundice, no diaphoresis. DIFFERENTIAL DIAGNOSIS: TIA, stroke, intracranial bleeding, electrolyte imbalance, anemia, renal or liver failure, UTI, dysrhythmia, among others. EMERGENCY DEPARTMENT COURSE/PROCEDURES: Prior/Outside records reviewed: EMS notes. ECG per my interpretation: Indication was possible stroke. The ECG shows a sinus rhythm with a first-degree AV block. The rate is 85. There is no ST elevation, no PVCs. The QTc is 456. Continuous Cardiac Monitoring per my interpretation: An order was placed for continuous cardiac monitoring. The monitor shows a rate of 83 with sinus rhythm with a first-degree block. MEDICAL DECISION MAKING: There is no leukocytosis or concerning anemia. There is a normal platelet count. Creatinine was slightly elevated, the patient does have a history of renal insufficiency. No electrolyte abnormality in need of emergent correction. No concerning liver enzyme elevation. The patient appears to be in a euthyroid state. ECG showed a sinus rhythm, no obvious ischemia. Cardiac enzyme testing x1 was slightly elevated. This troponin elevation could be secondary to his hi gher blood pressure and mismatch or potentially, cardiac injury. Of note, the patient does not have chest pain. Urinalysis did not show findings of infection. Chest film showed some presumed atelectasis at the bases per my review. No pneumonia or CHF. Brain CT showed no acute bleed or mass effect. CT angio of the head and neck were performed, there was no stenosis or clot. On my exam, the patient was quite hypertensive. There were no focal neurologic findings. He was not altered. The patient was given a DuoNeb. This was given as his O2 saturation did drop to the upper 80s. He was given IV labetalol for his higher blood pressure--the patient's blood pressure did improve with the labetalol. He was given IV saline, 500 cc. Patient presents with an altered mental state which seems to now have resolved. He is hypertensive. He was found at 1 point to be hypoxic. Given his findings, I do think a hospital stay is warranted. The cause for the change in mental status is unclear but the high blood pressure or hypoxia may have been independently or together responsible. I did speak with the patient and family, the on-call hospitalist was consulted. DISPOSITION: Patient's presentation and findings warrant a hospital stay. Past Med/Surg History Medical History AAA (abdominal aortic aneurysm) (CARDIO MONITORING) CAD (coronary artery disease) 2015 cath showed no high-grade obstruction -- no stents. Follows with [facility]. Chronic back pain CKD (chronic kidney disease), stage III COPD (chronic obstructive pulmonary disease) HLD (hyperlipidemia) Hx of gout Hx of melanoma of skin Hypertension Neuropathy BLE Osteoarthritis Sleep apnea CPAP -- reports at least 4-5hrs of use every night SOB (shortness of breath) on exertion Surgical History Fusion of spine H/O esophagogastroduodenoscopy History of adenoidectomy History of cardiac cath History of partial knee replacement History of tonsillectomy Hx of LASIK Status post Mohs surgery Family History Mother Diabetes Brother Family hx of colon cancer Diabetes Other Bladder cancer COPD (chronic obstructive pulmonary disease) Hypertension No family history of adverse response to anesthesia Social History Smoking Status: Former smoker Second Hand Exposure: No; Do You Dip or Chew Tobacco: No; Hx Alcohol Use: Yes Alcohol type: beer Preferred Language: Belarusian Communication Ability: Effective Visual Impairment: No Limitations Collections Rep Required: No Beliefs That Will Affect Care: None marital status: Current Living Situation: Spouse Feels Safe at Home: Yes Assistive Devices: CPAP and Walker Allergies Allergies Allergy/AdvReac Type Severity Reaction Status Date / Time Swzopdv-SIU-[id number] Reductase AdvReac Intermediate Dizziness Verified 09/14/21 09:32 Inhibitor [Gmvirni-Fix-Qsc Reductase Inhibitor] Home Meds Home Medications Medication Instructions Recorded Confirmed allopurinol 300 mg tablet 1.5 tab PO QAM 05/30/18 04/07/23 aspirin 81 mg tablet,delayed 81 mg PO Q2D 05/30/18 04/07/23 release calcium carbonate 500 mg-vitamin 1 tab PO HS 05/30/18 04/07/23 D3 5 mcg (200 unit) tablet (Calcium 500 + D) docusate sodium 100 mg capsule 100 mg PO BID PRN Constipation 05/30/18 04/07/23 (Colace) duloxetine 30 mg capsule,delayed 60 mg PO QAM 05/30/18 04/07/23 release (Cymbalta) ipratropium 0.5 mg-albuterol 3 mg 1 dose inhalation Q6H PRN 05/30/18 04/07/23 (2.5 mg base)/3 mL nebulization Shortness Of Breath soln metoprolol succinate 25 mg 25 mg PO BID 05/30/18 04/07/23 tablet,extended release 24 hr multivitamin 1 tab PO QAM 05/30/18 04/07/23 albuterol sulfate 90 mcg/actuation 2 puff inhalation Q6H PRN 06/26/18 04/07/23 aerosol inhaler (Ventolin HFA) Shortness Of Breath Or Wheezing ezetimibe 10 mg tablet (Zetia) 10 mg PO QAM 06/26/18 04/07/23 acetylcysteine 600 mg capsule (NAC) 600 mg PO DAILY 12/02/20 04/07/23 cephalexin 500 mg tablet 500 mg PO UD PRN Other 12/02/20 04/07/23 cyanocobalamin (vitamin B-12) 1,000 mcg PO QAM 12/02/20 04/07/23 1,000 mcg tablet fluticasone fur. 100 mcg-umeclid 1 inh inhalation QAM 12/02/20 04/07/23 62.5 mcg-vilant 25 mcg inhalat.powder (Trelegy Ellipta) furosemide 40 mg tablet 40 mg PO QAM PRN edema 12/02/20 04/07/23 psyllium husk 3.4 gram/5.4 gram 1 tbsp PO QAM 12/02/20 04/07/23 oral powder (Metamucil) spironolactone 25 mg tablet 12.5 mg PO Q OTHER DAY 12/02/20 04/07/23 (Aldactone) Results & Data (ED) Vital Signs Vital Signs - 24 hr 04/07/23 10:06 04/07/23 10:41 04/07/23 12:56 Temperature 36.4 C L Temperature Source Oral Pulse Rate 76 83 Pulse Rate from SpO2 Sensor Respiratory Rate 20 Respiratory Effort / Characteristics Non-Labored Respiratory Depth Normal Respiratory Pattern Regular Blood Pressure Blood Pressure Mean Pulse Oximetry 93 95 Oxygen Delivery Method Room Air Nasal Cannula Oxygen Flow Rate 2 Sepsis Recent Fever Within 48 Hours No Sepsis New/Unexplained Change in Mental Status N/A Sepsis Action Taken by Nursing No Action Required 04/07/23 10:11 04/07/23 10:30 04/07/23 10:30 Temperature Temperature Source Pulse Rate 84 86 Pulse Rate from SpO2 Sensor 84 86 Respiratory Rate 22 22 Respiratory Effort / Characteristics Respiratory Depth Respiratory Pattern Blood Pressure 183/108 H Blood Pressure Mean 122 Pulse Oximetry 95 94 Oxygen Delivery Method Oxygen Flow Rate Sepsis Recent Fever Within 48 Hours Sepsis New/Unexplained Change in Mental Status Sepsis Action Taken by Nursing 04/07/23 11:00 04/07/23 11:00 04/07/23 11:30 Temperature Temperature Source Pulse Rate 67 105 H Pulse Rate from SpO2 Sensor 75 Respiratory Rate 16 16 Respiratory Effort / Characteristics Respiratory Depth Respiratory Pattern Blood Pressure 176/123 H Blood Pressure Mean 152 Pulse Oximetry 92 Oxygen Delivery Method Oxygen Flow Rate Sepsis Recent Fever Within 48 Hours Sepsis New/Unexplained Change in Mental Status Sepsis Action Taken by Nursing 04/07/23 12:00 04/07/23 12:00 04/07/23 12:34 Temperature Temperature Source Pulse Rate 97 H 97 H Pulse Rate from SpO2 Sensor Respiratory Rate 20 Respiratory Effort / Characteristics Respiratory Depth Respiratory Pattern Blood Pressure 169/125 H Blood Pressure Mean 157 Pulse Oximetry Oxygen Delivery Method Oxygen Flow Rate Sepsis Recent Fever Within 48 Hours Sepsis New/Unexplained Change in Mental Status Sepsis Action Taken by Nursing 04/07/23 12:38 04/07/23 12:38 04/07/23 12:53 Temperature Temperature Source Pulse Rate 87 Pulse Rate from SpO2 Sensor Respiratory Rate 27 H Respiratory Effort / Characteristics Respiratory Depth Respiratory Pattern Blood Pressure 183/109 H 172/108 H Blood Pressure Mean 125 124 Pulse Oximetry 88 L Oxygen Delivery Method Room Air Oxygen Flow Rate Sepsis Recent Fever Within 48 Hours Sepsis New/Unexplained Change in Mental Status Sepsis Action Taken by Nursing 04/07/23 12:53 04/07/23 13:09 04/07/23 13:00 Temperature Temperature Source Pulse Rate 91 H 87 Pulse Rate from SpO2 Sensor 91 H Respiratory Rate 18 Respiratory Effort / Characteristics Respiratory Depth Respiratory Pattern Blood Pressure 175/133 H 175/133 H Blood Pressure Mean 135 Pulse Oximetry Oxygen Delivery Method Oxygen Flow Rate Sepsis Recent Fever Within 48 Hours Sepsis New/Unexplained Change in Mental Status Sepsis Action Taken by Nursing 04/07/23 13:00 04/07/23 13:16 04/07/23 13:16 Temperature Temperature Source Pulse Rate 88 83 Pulse Rate from SpO2 Sensor 87 82 Respiratory Rate 17 21 Respiratory Effort / Characteristics Respiratory Depth Respiratory Pattern Blood Pressure 130/94 Blood Pressure Mean 96 Pulse Oximetry 99 98 Oxygen Delivery Method Oxygen Flow Rate Sepsis Recent Fever Within 48 Hours Sepsis New/Unexplained Change in Mental Status Sepsis Action Taken by Nursing 04/07/23 13:30 04/07/23 13:30 04/07/23 13:38 Temperature Temperature Source Pulse Rate 81 81 Pulse Rate from SpO2 Sensor 81 Respiratory Rate 21 Respiratory Effort / Characteristics Respiratory Depth Respiratory Pattern Blood Pressure 163/98 H 163/98 H Blood Pressure Mean 119 Pulse Oximetry 100 Oxygen Delivery Method Oxygen Flow Rate Sepsis Recent Fever Within 48 Hours Sepsis New/Unexplained Change in Mental Status Sepsis Action Taken by Nursing 04/07/23 13:45 04/07/23 13:45 04/07/23 14:00 Temperature Temperature Source Pulse Rate 87 93 H Pulse Rate from SpO2 Sensor 87 92 H Respiratory Rate 22 22 Respiratory Effort / Characteristics Respiratory Depth Respiratory Pattern Blood Pressure 151/97 H Blood Pressure Mean 125 Pulse Oximetry Oxygen Delivery Method Oxygen Flow Rate Sepsis Recent Fever Within 48 Hours Sepsis New/Unexplained Change in Mental Status Sepsis Action Taken by Nursing 04/07/23 14:01 04/07/23 14:01 04/07/23 14:15 Temperature Temperature Source Pulse Rate 88 Pulse Rate from SpO2 Sensor 89 Respiratory Rate 23 Respiratory Effort / Characteristics Respiratory Depth Respiratory Pattern Blood Pressure 169/101 H 148/97 H Blood Pressure Mean 129 120 Pulse Oximetry Oxygen Delivery Method Oxygen Flow Rate Sepsis Recent Fever Within 48 Hours Sepsis New/Unexplained Change in Mental Status Sepsis Action Taken by Nursing 04/07/23 14:15 Temperature Temperature Source Pulse Rate 89 Pulse Rate from SpO2 Sensor 88 Respiratory Rate 16 Respiratory Effort / Characteristics Respiratory Depth Respiratory Pattern Blood Pressure Blood Pressure Mean Pulse Oximetry 94 Oxygen Delivery Method Room Air Oxygen Flow Rate Sepsis Recent Fever Within 48 Hours Sepsis New/Unexplained Change in Mental Status Sepsis Action Taken by Shelter Medications Current Medication List: was personally reviewed by me Laboratory Data Attestation: I reviewed the patient's lab results. 04/07/23 11:02 04/07/23 11:02 Lab Results 04/07/23 04/07/23 04/07/23 Range/Units 11:02 11:02 11:02 WBC 9.36 (4.8-10.8) K/ul RBC 4.28 L (4.70-6.10) M/uL Hgb 14.1 (14.0-18.0) g/dl Hct 43.8 (42.0-52.0) % MCV 102.3 H (80.0-100.0) fL MCH 32.9 (25.0-34.0) pg MCHC 32.2 (32.0-36.0) g/dL RDW Std Deviation 52.9 H (36.4-46.3) fL RDW Coeff of Norman 14.1 (11.5-14.5) % Plt Count 194 (130-400) K/uL MPV 9.3 L (9.4-12.4) fL Immature Gran % (Auto) 1.0 % Neut % (Auto) 82.8 % Lymph % (Auto) 7.2 % [place] % (Auto) 5.7 % Eos % (Auto) 2.8 % Baso % (Auto) 0.5 % Neut # (Auto) 7.76 H (1.40-6.50) K/uL Lymph # (Auto) 0.67 L (1.2-3.4) K/uL [place] # (Auto) 0.53 (0.11-0.59) K/uL Eos # (Auto) 0.26 (0-0.50) K/uL Baso # (Auto) 0.05 (0-0.2) K/uL Immature Gran # (Auto) 0.09 (0.01-0.20) K/uL Sodium 143 (136-145) mmol/L Potassium 4.3 (3.5-5.1) mmol/L Chloride 107 (98-107) mmol/L Carbon Dioxide 29 (21-32) mmol/L Anion Gap 7 (3-11) BUN 40 H (6-23) mg/dl Creatinine 1.62 H (0.6-1.4) mg/dl Est Cr Clr Drug Dosing 39.3 ml/min Est GFR ( Amer) 44.8 ml/min Est GFR (Non-Af Amer) 38.7 ml/min BUN/Creatinine Ratio 24.7 H (10-20) Glucose 103 H (70-99(Fasting)) mg/dl Calcium 10.1 (8.6-10.3) mg/dl Magnesium 2.0 (1.7-2.4) mg/dl Total Bilirubin 0.6 (0.2-1.0) mg/dl AST 10 L (13-39) U/L ALT 10 (7-52) U/L Alkaline Phosphatase 89 (34-104) U/L Troponin I High Sens 25.4 H (0-20) pg/ml Total Protein 6.1 (6.0-8.3) gm/dl Albumin 3.6 (3.4-5.0) gm/dl Globulin 2.5 (2.5-4.0) gm/dl Albumin/Globulin Ratio 1.4 (0.9-2) TSH 1.686 (0.300-4.500) uIu/ml Urine Color Urine Appearance (Clear) Urine pH (4.5-7.5) Ur Specific [place] (1.000-1.030) Urine Protein (Negative) Urine Glucose (UA) (Negative) Urine Ketones (Negative) Urine Blood (Negative) Urine Nitrite (Negative) Urine Bilirubin (Negative) Urine Urobilinogen (Negative) Ur Leukocyte Esterase (Negative) Urine WBC (Auto) (0-5) /hpf Urine RBC (Auto) (0-4) /hpf U Hyaline Cast (Auto) (0-5) /lpf U Epithel Cells (Auto) (0-5) /lpf Urine Bacteria (Auto) (Negative) 04/07/23 Range/Units 12:39 WBC (4.8-10.8) K/ul RBC (4.70-6.10) M/uL Hgb (14.0-18.0) g/dl Hct (42.0-52.0) % MCV (80.0-100.0) fL MCH (25.0-34.0) pg MCHC (32.0-36.0) g/dL RDW Std Deviation (36.4-46.3) fL RDW Coeff of Norman (11.5-14.5) % Plt Count (130-400) K/uL MPV (9.4-12.4) fL Immature Gran % (Auto) % Neut % (Auto) % Lymph % (Auto) % [place] % (Auto) % Eos % (Auto) % Baso % (Auto) % Neut # (Auto) (1.40-6.50) K/uL Lymph # (Auto) (1.2-3.4) K/uL [place] # (Auto) (0.11-0.59) K/uL Eos # (Auto) (0-0.50) K/uL Baso # (Auto) (0-0.2) K/uL Immature Gran # (Auto) (0.01-0.20) K/uL Sodium (136-145) mmol/L Potassium (3.5-5.1) mmol/L Chloride (98-107) mmol/L Carbon Dioxide (21-32) mmol/L Anion Gap (3-11) BUN (6-23) mg/dl Creatinine (0.6-1.4) mg/dl Est Cr Clr Drug Dosing ml/min Est GFR ( Amer) ml/min Est GFR (Non-Af Amer) ml/min BUN/Creatinine Ratio (10-20) Glucose (70-99(Fasting)) mg/dl Calcium (8.6-10.3) mg/dl Magnesium (1.7-2.4) mg/dl Total Bilirubin (0.2-1.0) mg/dl AST (13-39) U/L ALT (7-52) U/L Alkaline Phosphatase (34-104) U/L Troponin I High Sens (0-20) pg/ml Total Protein (6.0-8.3) gm/dl Albumin (3.4-5.0) gm/dl Globulin (2.5-4.0) gm/dl Albumin/Globulin Ratio (0.9-2) TSH (0.300-4.500) uIu/ml Urine Color Yellow Urine Appearance Clear (Clear) Urine pH 5.5 (4.5-7.5) Ur Specific [place] 1.015 (1.000-1.030) Urine Protein 2+ H (Negative) Urine Glucose (UA) Negative (Negative) Urine Ketones Negative (Negative) Urine Blood Negative (Negative) Urine Nitrite Negative (Negative) Urine Bilirubin Negative (Negative) Urine Urobilinogen Negative (Negative) Ur Leukocyte Esterase Negative (Negative) Urine WBC (Auto) 1-5 (0-5) /hpf Urine RBC (Auto) 0-4 (0-4) /hpf U Hyaline Cast (Auto) 1-5 (0-5) /lpf U Epithel Cells (Auto) 0-5 (0-5) /lpf Urine Bacteria (Auto) Negative (Negative) Administered Medications Discontinued Medications Albuterol (Albut/Ipratrop 3mg/0.5mg Neb 3 Ml Vial) 3 ml NEB NOW STA; Protocol Stop: 04/07/23 13:12 Last Admin: 04/07/23 13:17 Dose: 3 ml Documented By: JANE Sodium Chloride (Nss 1000ml) 500 mls @ 999 mls/hr IV .Q31M ONE Stop: 04/07/23 11:54 Last Infusion: 04/07/23 12:43 Dose: 0 mls/hr Documented By: Admin: 04/07/23 11:31 Dose: 999 mls/hr Documented By: JANE Ioversol (Ioversol 350 Mg 125ml Prefilled Syringe) 118 ml IV ONCE ONE Stop: 04/07/23 12:27 Last Admin: 04/07/23 12:26 Dose: 118 ml Documented By: SCOT Labetalol HCl (Labetalol Hcl Iv 5 Mg/Ml 20ml) 10 mg IV NOW STA Stop: 04/07/23 13:04 Last Admin: 04/07/23 13:09 Dose: 10 mg Documented By: JANE Co-signed By: SHAVONNE Imaging Data Radiologist's Impression: Chest X-Ray 04/07/23 10:48 XR chest 1V portable CLINICAL HISTORY: illness TECHNIQUE: Single frontal radiograph of the chest was obtained. Comparison: Comparison is made to chest radiograph 06/06/2018 FINDINGS: No lines and tubes are seen. Cardiomegaly is noted. The aortic arch is calcified. The lungs are clear. No evidence of pleural effusion or pneumothorax. IMPRESSION: No acute abnormalities and in particular no radiographic evidence of pneumonia. ACT 112: Negative or not required by law. Electronically signed by: Aj Stockton M.D. 04/07/2023 11:[address] 04/07/23 11:23 CT angio neck with con, CT angio head w con, CT head/brain wo con CLINICAL HISTORY: altered TECHNIQUE: Contiguous axial CT images of the head were acquired from the base of the skull to the vertex without intravenous contrast administration. CT angiography of the head and neck was performed following intravenous administration of iodinated contrast. Coronal and sagittal MIPS were obtained from the axial data set and were submitted for review. Automated dose lowering techniques and/or adjustment according to patient size were utilized for this examination. All measurements were calculated based on NASCET criteria. CT DOSE: 1124.64 mGy.cm Comparison: None available at the time of this dictation. FINDINGS: CT head: There is no acute intracranial hemorrhage or evidence of acute [place] tor[place] infarction. No shift of the midline structures, mass effect, or extra- axial abnormalities are shown. Focal encephalomalacia is noted in the left frontal lobe which may be due to prior infarct. Calcification of the falx is noted. Lungs and soft tissues are unremarkable. CTA Neck: A 3 vessel aortic arch is shown. There is no significant ath erosclerotic plaque in the aortic arch or the origins of the innominate, left common carotid, and left subclavian arteries. The common carotid, external carotid, cervical segments of the internal carotid arteries, and the cervical segments of the vertebral arteries are patent without hemodynamically significant stenosis. The left vertebral artery is dominant. CTA Head: The anterior and posterior cerebral circulations are patent. No hemodynamically significant stenosis, aneurysm, dissection, or arteriovenous malformation is shown. IMPRESSION: 1. No acute intracranial hemorrhage, evidence of acute territorial infarction, or other acute intracranial disease process. 2. No occlusion, hemodynamically significant stenosis, or dissection in the major cervical arteries. 3. No occlusion, hemodynamically significant stenosis, aneurysm, dissection, or arteriovenous malformation in the major intracranial arteries. Assessment of stenosis of the internal carotid arteries is based on NASCET criteria. ACT 112: Negative or not required by law. Electronically signed by: Aj Stockton M.D. 04/07/2023 12:51 PM Head CTA 04/07/23 11:23 CT angio neck with con, CT angio head w con, CT head/brain wo con CLINICAL HISTORY: altered TECHNIQUE: Contiguous axial CT images of the head were acquired from the base of the skull to the vertex without intravenous contrast administration. CT angiography of the head and neck was performed following intravenous administration of iodinated contrast. Coronal and sagittal MIPS were obtained from the axial data set and were submitted for review. Automated dose lowering techniques and/or adjustment according to patient size were utilized for this examination. All measurements were calculated based on NASCET criteria. CT DOSE: 1124.64 mGy.cm Comparison: None available at the time of this dictation. FINDINGS: CT head: There is no acute intracranial hemorrhage or evidence of acute territorial infarction. No shift of the midline structures, mass effect, or extra-axial abnormalities are shown. Focal encephalomalacia is noted in the left frontal lobe which may be due to prior infarct. Calcification of the falx is noted. Lungs and soft tissues are unremarkable. CTA Neck: A 3 vessel aortic arch is shown. There is no significant atherosclerotic plaque in the aortic arch or the origins of the innominate, left common carotid, and left subclavian arteries. The common carotid, external carotid, cervical segments of the internal carotid arteries, and the cervical segments of the vertebral arteries are patent without hemodynamically significant stenosis. The left vertebral artery is dominant. CTA Head: The anterior and posterior cerebral circulations are patent. No hemodynamically significant stenosis, aneurysm, dissection, or arteriovenous malformation is shown. IMPRESSION: 1. No acute intracranial hemorrhage, evidence of acute territorial infarction, or other acute intracranial disease process. 2. No occlusion, hemodynamically significant stenosis, or dissection in the major cervical arteries. 3. No occlusion, hemodynamically significant stenosis, aneurysm, dissection, or arteriovenous malformation in the major intracranial arteries. Assessment of stenosis of the internal carotid arteries is based on NASCET criteria. ACT 112: Negative or not required by law. Electronically signed by: Aj Stockton M.D. 04/07/2023 12:51 PM Neck CTA 04/07/23 11:23 CT angio neck with con, CT angio head w con, CT head/brain wo con CLINICAL HISTORY: altered TECHNIQUE: Contiguous axial CT images of the head were acquired from the base of the skull to the vertex without intravenous contrast administration. CT angiography of the head and neck was performed following intravenous administration of iodinated contrast. Coronal and sagittal MIPS were obtained from the axial data set and were submitted for review. Automated dose lowering techniques and/or adjustment according to patient size were utilized for this examination. All measurements were calculated based on NASCET criteria. CT DOSE: 1124.64 mGy.cm Comparison: None available at the time of this dictation. FINDINGS: CT head: There is no acute intracranial hemorrhage or evidence of acute territorial infarction. No shift of the midline structures, mass effect, or extra-axial abnormalities are shown. Focal encephalomalacia is noted in the left frontal lobe which may be due to prior infarct. Calcification of the falx is noted. Lungs and soft tissues are unremarkable. CTA Neck: A 3 vessel aortic arch is shown. There is no significant atherosclerotic plaque in the aortic arch or the origins of the innominate, left common carotid, and left subclavian arteries. The common carotid, external carotid, cervical segments of the internal carotid arteries, and the cervical segments of the vertebral arteries are patent without hemodynamically significant stenosis. The left vertebral artery is dominant. CTA Head: The anterior and posterior cerebral circulations are patent. No hemodynamically significant stenosis, aneurysm, dissection, or arteriovenous malformation is shown. IMPRESSION: 1. No acute intracranial hemorrhage, evidence of acute territorial infarction, or other acute intracranial disease process. 2. No occlusion, hemodynamically significant stenosis, or dissection in the major cervical arteries. 3. No occlusion, hemodynamically significant stenosis, aneurysm, dissection, or arteriovenous malformation in the major intracranial arteries. Assessment of stenosis of the internal carotid arteries is based on NASCET criteria. ACT 112: Negative or not required by law. Electronically signed by: Aj Stockton M.D. 04/07/2023 12:51 PM Discharge Plan Visit Data Chief Complaint: Illness ED Provider: Matias Hazel Discharge Problem: Altered mental status, Hypertension, Weakness, Hypoxia Patient Disposition: Admitted As Inpatient Condition: Fair Forms Stand Alone Forms: [facility] [employer] Prescriptions Prescriptions: No Action multivitamin Tablet 1 tab PO QAM aspirin 81 mg Tablet,Delayed Release (Dr/Ec) 81 mg PO Q2D allopurinol 300 mg Tablet 1.5 tab PO QAM metoprolol succinate 25 mg Tablet Extended Release 24 Hr 25 mg PO BID Patient Comments: 02/20/21: Patient states he now takes 25mg in AM + 25mg in PM duloxetine [Cymbalta] 30 mg Capsule,Delayed Release(Dr/Ec) 60 mg PO QAM calcium carbonate-vitamin D3 [Calcium 500 + D] 500 mg(1,250mg) -200 unit Tablet 1 tab PO HS ipratropium-albuterol 0.5 mg-3 mg(2.5 mg base)/3 mL Solution For Nebulization 1 dose Inhalation Q6H PRN (Reason: Shortness Of Breath) docusate sodium [Colace] 100 mg Capsule 100 mg PO BID PRN (Reason: Constipation) albuterol sulfate [Ventolin HFA] 90 mcg/actuation Hfa Aerosol Inhaler 2 puff INHALATION Q6H PRN (Reason: Shortness Of Breath Or Wheezing) ezetimibe [Zetia] 10 mg Tablet 10 mg PO QAM furosemide 40 mg tablet 40 mg PO QAM PRN (Reason: edema) Patient Comments: WILL TAKE AN ADDITIONAL 40MG FOR LEG SWELLING Rx Instructions: Takes MWF Trelegy Ellipta 100-62.5-25 mcg Blister With Device 1 inh INHALATION QAM cyanocobalamin (vitamin B-12) 1,000 mcg Tablet 1,000 mcg PO QAM acetylcysteine [NAC] 600 mg Capsule 600 mg PO DAILY Metamucil 3.4 gram/5.4 gram Powder 1 tbsp PO QAM spironolactone [Aldactone] 25 mg Tablet 12.5 mg PO Q OTHER DAY Rx Instructions: Takes MWF cephalexin 500 mg Tablet 500 mg PO UD PRN (Reason: Other) Referrals Referrals: Hank Burden DO [Primary Care Provider] -
[2023-04-07 11:39] LABS: Albumin Globulin Ratio 1.4 (0.9-2); Albumin Level 3.6 gm/dl (3.4-5.0); BUN Creatinine Ratio 24.7 (10-20); Bilirubin,Total 0.6 mg/dl (0.2-1.0); Calcium 10.1 mg/dl (8.6-10.3); Creatinine Clr Calc Pharmacy 39.3 ml/min; Est GFR (African American) 44.8 ml/min; Est GFR (Non-African American) 38.7 ml/min; Globulin 2.5 gm/dl (2.5-4.0); Potassium 4.3 mmol/L (3.5-5.1); Total Protein 6.1 gm/dl (6.0-8.3)
--- NOTE | 2023-04-07 11:57 | XRay Report ---
XR chest 1V portable CLINICAL HISTORY: illness TECHNIQUE: Single frontal radiograph of the chest was obtained. Comparison: Comparison is made to chest radiograph 06/06/2018 FINDINGS: No lines and tubes are seen. Cardiomegaly is noted. The aortic arch is calcified. The lungs are clear . No evidence of pleural effusion or pneumothorax. IMPRESSION: No acute abnormalities and in particular no radiographic evidence of pneumonia. ACT 112: Negative or not required by law. Electronically signed by: Aj Stockton M.D. 04/07/2023 11:55 AM
[2023-04-07] MEDS ORDERED: IOVERSOL 350 MG 125mL Prefilled Syringe IV ONE (12:26)
[2023-04-07 12:33] LABS: Troponin I High Sensitivity 25.4 pg/ml (0-20)
--- NOTE | 2023-04-07 12:54 | CT Scan Report ---
CT angio neck with con, CT angio head w con, CT head/brain wo con CLINICAL HISTORY: altered TECHNIQUE: Contiguous axial CT images of the head were acquired from the base of the skull to the judy bentley without intravenous contrast administration. CT angiography of the head and neck was performed f ollowing intravenous administration of iodinated contrast. Coronal and sagittal MIPS were obtained fr om the axial data set and were submitted for review. Automated dose lowering techniques and/or adjus tment according to patient size were utilized for this examination. All measurements were calculated based on NASCET criteria. CT DOSE: 1124.64 mGy.cm Comparison: None available at the time of this dictation. FINDINGS: CT head: There is no acute intracranial hemorrhage or evidence of acute territorial infarction. No sh ift of the midline structures, mass effect, or extra-axial abnormalities are shown. 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 Calcification of the falx is noted. Lungs and soft tissues are unremarkable. CTA Neck: A 3 vessel aortic arch is shown. There is no significant atherosclerotic plaque in the aor tic arch or the origins of the innominate, left common carotid, and left subclavian arteries. The co mmon carotid, external carotid, cervical segments of the internal carotid arteries, and the cervical segments of the vertebral arteries are patent without hemodynamically significant stenosis. The left vertebral artery is dominant. CTA Head: The anterior and posterior cerebral circulations are patent. No hemodynamically significan t stenosis, aneurysm, dissection, or arteriovenous malformation is shown. IMPRESSION: 1. No acute intracranial hemorrhage, evidence of acute territorial infarction, or other acute intrac ranial disease process. 2. No occlusion, hemodynamically significant stenosis, or dissection in the major cervical arteries. 3. No occlusion, hemodynamically significant stenosis, aneurysm, dissection, or arteriovenous malfor mation in the major intracranial arteries. Assessment of stenosis of the internal carotid arteries is based on NASCET criteria. ACT 112: Negative or not required by law. Electronically signed by: Aj Stockton M.D. 04/07/2023 12:51 PM
[2023-04-07] MEDS ORDERED: LABETALOL HCL IV 5 MG/ML 20ML IV STA (13:03)
[2023-04-07] MEDS ORDERED: ALBUT/IPRATROP 3MG/0.5MG NEB 3 ML VIAL NEB STA (13:11)
[2023-04-07 13:24] LABS: Appearance Urine Clear (Clear); Bacteria Urine Automated Negative (Negative); Bilirubin Urine Negative (Negative); Blood Urine Negative (Negative); Color Urine Yellow; Epithelial Cell Urine Auto 0-5 /lpf (0-5); Glucose Urine UA Negative (Negative); Ketones Urine Negative (Negative); Leukocyte Esterase Urine Negative (Negative); Nitrite Urine Negative (Negative); Protein Urine 2+ (Negative); RBC Urine Automated 0-4 /hpf (0-4); Specific Gravity Urine 1.015 (1.000-1.030); Urobilinogen Urine Negative (Negative); pH Urine 5.5 (4.5-7.5)
--- NOTE | 2023-04-07 13:40 | History & Physical Report ---
Date of Service April 07, 2023 Assessment & Plan (1) AMS (altered mental status): Plan: - Admit to PCU for observation - Stroke order set completed, no indication for thrombolytic - CT head reviewed and is negative - MRI brain wo contrast ordered - Cont baby aspirin - Will allow permissive hypertension with SBP 140-170 - Consider neuro consult pending MRI results - PT/OT consults placed - Speech therapy eval (2) Hypertensive urgency: Plan: - SBP 175/110 at home during associated nausea, headache, confusion and difficulty getting dressed, improving now status post IV labetalol given in the ER (3) CAD (coronary artery disease): (4) AAA (abdominal aortic aneurysm): (5) Hypertension: (6) HLD (hyperlipidemia): Plan: - Continue spironolactone MWF, pt is taking lasix prn-does not appear to be volume overloaded at this time, monitor - Continue baby aspirin - Check lipid panel and with a.m. labs, previously statin intolerant, continue Zetia 10 mg in the morning - Continue beta-blockade with metoprolol 25 mg twice daily - Last a1c was 5.7, previously diabetic but manages with diet, not on any hyperglycemic medications (7) COPD (chronic obstructive pulmonary disease): Plan: - No acute exacerbation - May continue Trelegy - Patient appears to have saturations that have around 90 to 93% on room air, had 1 bout of 88%, CXR is negative, patient is sedentary, if worsening hypoxia consider a CTA of the chest (8) CKD (chronic kidney disease), stage III: Plan: - CR/BUN 40/1.62, baseline Cr appears to be 1.3-1.4, hold lasix for now, monitor volume overload (9) ARIANA (obstructive sleep apnea): Plan: - Cont cpap HS DVT ppx: - teds, scds CODE: DNR/DNI Dispo: From home, likely to remain in the hospital x 1-2 days A total of 78 minutes were spent with greater than 50% of that time face to face with the patient, personally reviewing all current laboratories, imaging studies, past medication reconciliation, outpatient chart review, and discussion with specialists to collaborate care for the patient with attending. Please see attending documentation for corrections and/or additions. (10) Weakness: History of Present Illness Chief Complaint: Confusion, elevated BP Primary Care Provider: Hank Burden, This is an 82-year-old male with PMHx of CAD, AAA, HTN, HLD, DM type II, CKD stage III, peripheral neuropathy, COPD on CPAP at bedtime, depression who presents to the hospital with acute bout of altered mental status which occurred this morning between 7:30 and 8:30 AM. Upon arrival here to the hospital states that he is nearly back to baseline. He had been nauseous and complaining of a frontal right-sided headache earlier today. His notes that he was having difficulty getting dressed and seemed to be generally confused. Patient has difficulty ambulating at all times but was more off balance with getting dressed today. She denies any slurring of speech but noticed a right sided mouth droop which was new. It is now resolved. He did take his morning medications today including his antihypertensives. Pt is statin intolerance due to dizziness and has trialed two in the past. In general patient has been having progressive weakness over the last few months, having difficulty with walking, has been working with PT 2 times per week at home. Pt is very sedentary, primarily wheelchair/scooter bound ambulates minimally on his own and requires assistance with transfers. Denies any other acute complaints. Blood pressure is noted to be elevated at 175/43, and per nursing staff was found to be hypoxic at 88% on room air. He received DuoNeb treatment,now maintains oxygen saturations of around 93% on RA. CT of the head is negative, CTA of the head and neck is also negative. Allergies Allergy/AdvReac Type Severity Reaction Status Date / Time Eyckymr-UKC-QhF Reductase AdvReac Intermediate Dizziness Verified 09/14/21 09:32 Inhibitor [Lxlvwci-Dmn-Gyn Reductase Inhibitor] Home Medications Medication Instructions Recorded Confirmed Type allopurinol 300 mg tablet 1.5 tab PO QAM 05/30/18 04/07/23 History aspirin 81 mg tablet,delayed 81 mg PO Q2D 05/30/18 04/07/23 History release calcium carbonate 500 mg-vitamin 1 tab PO HS 05/30/18 04/07/23 History D3 5 mcg (200 unit) tablet (Calcium 500 + D) docusate sodium 100 mg capsule 100 mg PO BID PRN Constipation 05/30/18 04/07/23 History (Colace) duloxetine 30 mg capsule,delayed 60 mg PO QAM 05/30/18 04/07/23 History release (Cymbalta) ipratropium 0.5 mg-albuterol 3 mg 1 dose inhalation Q6H PRN 05/30/18 04/07/23 History (2.5 mg base)/3 mL nebulization Shortness Of Breath soln metoprolol succinate 25 mg 25 mg PO BID 05/30/18 04/07/23 History tablet,extended release 24 hr multivitamin 1 tab PO QAM 05/30/18 04/07/23 History albuterol sulfate 90 mcg/actuation 2 puff inhalation Q6H PRN 06/26/18 04/07/23 History aerosol inhaler (Ventolin HFA) Shortness Of Breath Or Wheezing ezetimibe 10 mg tablet (Zetia) 10 mg PO QAM 06/26/18 04/07/23 History acetylcysteine 600 mg capsule (NAC) 600 mg PO DAILY 12/02/20 04/07/23 History cephalexin 500 mg tablet 500 mg PO UD PRN Other 12/02/20 04/07/23 History cyanocobalamin (vitamin B-12) 1,000 mcg PO QAM 12/02/20 04/07/23 History 1,000 mcg tablet fluticasone fur. 100 mcg-umeclid 1 inh inhalation QAM 12/02/20 04/07/23 History 62.5 mcg-vilant 25 mcg inhalat.powder (Trelegy Ellipta) furosemide 40 mg tablet 40 mg PO QAM PRN edema 12/02/20 04/07/23 History psyllium husk 3.4 gram/5.4 gram 1 tbsp PO QAM 12/02/20 04/07/23 History oral powder (Metamucil) spironolactone 25 mg tablet 12.5 mg PO Q OTHER DAY 12/02/20 04/07/23 History (Aldactone) Past Med/Surg History Medical History AAA (abdominal aortic aneurysm) (CARDIO MONITORING) CAD (coronary artery disease) 2015 cath showed no high-grade obstruction -- no stents. Follows with [facility]. Chronic back pain CKD (chronic kidney disease), stage III COPD (chronic obstructive pulmonary disease) HLD (hyperlipidemia) Hx of gout Hx of melanoma of skin Hypertension Neuropathy BLE Osteoarthritis Sleep apnea CPAP -- reports at least 4-5hrs of use every night SOB (shortness of breath) on exertion Surgical History Fusion of spine LUMBAR X 2 H/O esophagogastroduodenoscopy History of adenoidectomy History of cardiac cath 2016- NO STENTS History of partial knee replacement RT History of tonsillectomy Hx of LASIK Status post Mohs surgery Family History Mother Diabetes Brother Family hx of colon cancer Diabetes Other Bladder cancer COPD (chronic obstructive pulmonary disease) Hypertension No family history of adverse response to anesthesia Social History Smoking Status: Never smoker Second Hand Exposure: No; Do You Dip or Chew Tobacco: No; Tobacco Cessation Education Requested by Patient: No Hx Alcohol Use: No Hx Substance Use: No Preferred Language: Bulgarian Communication Ability: Effective Visual Impairment: No Limitations Director Of Promotions Required: No Beliefs That Will Affect Care: None marital status: Current Living Situation: Spouse Other Information That Helps Us Care for You: No Feels Safe at Home: Yes Safety Concerns: Feels Safe At This Time Assistive Devices: Walker Review of Systems Review of Systems: Constitutional: No fever, sweats or chills Eyes: No diplopia, no worsening or blurred vision ENT: normal hearing, no trouble swallowing Respiratory: No cough, sputum, dyspnea at rest or on exertion, wears CPAP HS, no other needs for supplemental oxygen Cardiovascular: No chest pain, tightness or palpitations Abdomen: No pain, nausea, vomiting, diarrhea or constipation Musculoskeletal: No joint pain, calf pain, swelling Neurologic: + Generalized worsening weakness, no numbness/tingling, + balance problems Psychiatric: No anxiety , + on medication for depression Skin: No rash or itch, chronic ecchymosis extremities from the beginning to things due to ambulatory dysfunction Physical Exam Physical Exam: General: awake, alert, no apparent distress, elderly appearing male Head: Normocephalic, atraumatic, no facial droop ENT: PERRL, EOMI, no pharyngeal exudate, mucous membranes moist Chest: Clear to auscultation, on room air, o2 sats of 93% , no adventitious breath sounds Cardiac: Regular rate and rhythm, no murmur, no JVD, normal peripheral pulses, good capillary refill Abdominal: NABS x 4 quadrants, soft, nondistended, nontender to palpation, no rebound or guarding Extremities: Normal inspection, no peripheral edema or erythema, calfs nontender to palpation Psych: Normal mood and affect Neuro: AAO x 3, strength intact bilaterally in upper extremities rated 5/5, and RLE rated 3/5, LLE rated 4/5, no facial droop, CN II-XII intact, mini mental exam able to be completed, no pronator drift, no motor deficits, speech is clear, no peripheral sensory deficits Results & Data Results & Data Vital Signs (Past 12 Hours) Vital Signs Temp Pulse Resp BP Pulse Ox O2 Del Method O2 Flow Rate 04/07/23 13:09 87 175/133 H 04/07/23 12:53 91 H 18 04/07/23 12:53 172/108 H 88 L Room Air 04/07/23 12:38 87 27 H 04/07/23 12:38 183/109 H 04/07/23 12:34 97 H 04/07/23 12:00 97 H 20 04/07/23 12:00 169/125 H 04/07/23 11:30 105 H 16 04/07/23 11:00 67 16 92 04/07/23 11:00 176/123 H 04/07/23 10:30 86 22 94 04/07/23 10:30 183/108 H 04/07/23 10:11 84 22 95 04/07/23 12:56 95 Nasal Cannula 2 04/07/23 10:41 83 04/07/23 10:06 36.4 C L 76 20 93 Room Air Laboratory Results 04/07/23 04/07/23 04/07/23 12:39 11:02 11:02 WBC RBC Hgb Hct MCV MCH MCHC RDW Std Deviation RDW Coeff of [place] Plt Count MPV Immature Gran % (Auto) Neut % (Auto) Lymph % (Auto) [place] % (Auto) Eos % (Auto) Baso % (Auto) Neut # (Auto) Lymph # (Auto) [place] # (Auto) Eos # (Auto) Baso # (Auto) Immature Gran # (Auto) Sodium 143 Potassium 4.3 Chloride 107 Carbon Dioxide 29 Anion Gap 7 BUN 40 H Creatinine 1.62 H Est Cr Clr Drug Dosing 39.3 Est GFR ( Amer) 44.8 Est GFR (Non-Af Amer) 38.7 BUN/Creatinine Ratio 24.7 H Glucose 103 H Calcium 10.1 Magnesium 2.0 Total Bilirubin 0.6 AST 10 L ALT 10 Alkaline Phosphatase 89 Troponin I High Sens 25.4 H Total Protein 6.1 Albumin 3.6 Globulin 2.5 Albumin/Globulin Ratio 1.4 TSH 1.686 Urine Color Yellow Urine Appearance Clear Urine pH 5.5 Ur Specific [place] 1.015 Urine Protein 2+ H Urine Glucose (UA) Negative Urine Ketones Negative Urine Blood Negative Urine Nitrite Negative Urine Bilirubin Negative Urine Urobilinogen Negative Ur Leukocyte Esterase Negative Urine WBC (Auto) 1-5 Urine RBC (Auto) 0-4 U Hyaline Cast (Auto) 1-5 U Epithel Cells (Auto) 0-5 Urine Bacteria (Auto) Negative 04/07/23 11:02 WBC 9.36 RBC 4.28 L Hgb 14.1 Hct 43.8 MCV 102.3 H MCH 32.9 MCHC 32.2 RDW Std Deviation 52.9 H RDW Coeff of [place] 14.1 Plt Count 194 MPV 9.3 L Immature Gran % (Auto) 1.0 Neut % (Auto) 82.8 Lymph % (Auto) 7.2 [place] % (Auto) 5.7 Eos % (Auto) 2.8 Baso % (Auto) 0.5 Neut # (Auto) 7.76 H Lymph # (Auto) 0.67 L [place] # (Auto) 0.53 Eos # (Auto) 0.26 Baso # (Auto) 0.05 Immature Gran # (Auto) 0.09 Sodium Potassium Chloride Carbon Dioxide Anion Gap BUN Creatinine Est Cr Clr Drug Dosing Est GFR ( Amer) Est GFR (Non-Af Amer) BUN/Creatinine Ratio Glucose Calcium Magnesium Total Bilirubin AST ALT Alkaline Phosphatase Troponin I High Sens Total Protein Albumin Globulin Albumin/Globulin Ratio TSH Urine Color Urine Appearance Urine pH Ur Specific [place] Urine Protein Urine Glucose (UA) Urine Ketones Urine Blood Urine Nitrite Urine Bilirubin Urine Urobilinogen Ur Leukocyte Esterase Urine WBC (Auto) Urine RBC (Auto) U Hyaline Cast (Auto) U Epithel Cells (Auto) Urine Bacteria (Auto) Diagnostic Findings Chest X-Ray 04/07/23 10:48 XR chest 1V portable CLINICAL HISTORY: illness TECHNIQUE: Single frontal radiograph of the chest was obtained. Comparison: Comparison is made to chest radiograph 06/06/2018 FINDINGS: No lines and tubes are seen. Cardiomegaly is noted. The aortic arch is calcified. The lungs are clear. No evidence of pleural effusion or pneumothorax. IMPRESSION: No acute abnormalities and in particular no radiographic evidence of pneumonia. ACT 112: Negative or not required by law. Electronically signed by: Aj Stockton M.D. 04/07/2023 11:[address] 04/07/23 11:23 CT angio neck with con, CT angio head w con, CT head/brain wo con CLINICAL HISTORY: altered TECHNIQUE: Contiguous axial CT images of the head were acquired from the base of the skull to the vertex without intravenous contrast administration. CT angiography of the head and neck was performed following intravenous administration of iodinated contrast. Coronal and sagittal MIPS were obtained from the axial data set and were submitted for review. Automated dose lowering techniques and/or adjustment according to patient size were utilized for this examination. All measurements were calculated based on NASCET criteria. CT DOSE: 1124.64 mGy.cm Comparison: None available at the time of this dictation. FINDINGS: CT head: There is no acute intracranial hemorrhage or evidence of acute territ orial infarction. No shift of the midline structures, mass effect, or extra- axial abnormalities are shown. Focal encephalomalacia is noted in the left frontal lobe which may be due to prior infarct. Calcification of the falx is noted. Lungs and soft tissues are unremarkable. CTA Neck: A 3 vessel aortic arch is shown. There is no significant atherosclerotic plaque in the aortic arch or the origins of the innominate, left common carotid, and left subclavian arteries. The common carotid, external carotid, cervical segments of the internal carotid arteries, and the cervical segments of the vertebral arteries are patent without hemodynamically significant stenosis. The left vertebral artery is dominant. CTA Head: The anterior and posterior cerebral circulations are patent. No hemodynamically significant stenosis, aneurysm, dissection, or arteriovenous malformation is shown. IMPRESSION: 1. No acute intracranial hemorrhage, evidence of acute territorial infarction, or other acute intracranial disease process. 2. No occlusion, hemodynamically significant stenosis, or dissection in the major cervical arteries. 3. No occlusion, hemodynamically significant stenosis, aneurysm, dissection, or arteriovenous malformation in the major intracranial arteries. Assessment of stenosis of the internal carotid arteries is based on NASCET criteria. ACT 112: Negative or not required by law. Electronically signed by: Aj Stockton M.D. 04/07/2023 12:51 PM Head CTA 04/07/23 11:23 CT angio neck with con, CT angio head w con, CT head/brain wo con CLINICAL HISTORY: altered TECHNIQUE: Contiguous axial CT images of the head were acquired from the base of the skull to the vertex without intravenous contrast administration. CT angiography of the head and neck was performed following intravenous administration of iodinated contrast. Coronal and sagittal MIPS were obtained from the axial data set and were submitted for review. Automated dose lowering techniques and/or adjustment according to patient size were utilized for this examination. All measurements were calculated based on NASCET criteria. CT DOSE: 1124.64 mGy.cm Comparison: None available at the time of this dictation. FINDINGS: CT head: There is no acute intracranial hemorrhage or evidence of acute territorial infarction. No shift of the midline structures, mass effect, or extra-axial abnormalities are shown. Focal encephalomalacia is noted in the left frontal lobe which may be due to prior infarct. Calcification of the falx is noted. Lungs and soft tissues are unremarkable. CTA Neck: A 3 vessel aortic arch is shown. There is no significant atherosclerotic plaque in the aortic arch or the origins of the innominate, left common carotid, and left subclavian arteries. The common carotid, external carotid, cervical segments of the internal carotid arteries, and the cervical segments of the vertebral arteries are patent without hemodynamically signi ficant stenosis. The left vertebral artery is dominant. CTA Head: The anterior and posterior cerebral circulations are patent. No hemodynamically significant stenosis, aneurysm, dissection, or arteriovenous malformation is shown. IMPRESSION: 1. No acute intracranial hemorrhage, evidence of acute territorial infarction, or other acute intracranial disease process. 2. No occlusion, hemodynamically significant stenosis, or dissection in the major cervical arteries. 3. No occlusion, hemodynamically significant stenosis, aneurysm, dissection, or arteriovenous malformation in the major intracranial arteries. Assessment of stenosis of the internal carotid arteries is based on NASCET criteria. ACT 112: Negative or not required by law. Electronically signed by: Aj Stockton M.D. 04/07/2023 12:51 PM Neck CTA 04/07/23 11:23 CT angio neck with con, CT angio head w con, CT head/brain wo con CLINICAL HISTORY: altered TECHNIQUE: Contiguous axial CT images of the head were acquired from the base of the skull to the vertex without intravenous contrast administration. CT angiography of the head and neck was performed following intravenous admin istration of iodinated contrast. Coronal and sagittal MIPS were obtained from the axial data set and were submitted for review. Automated dose lowering techniques and/or adjustment according to patient size were utilized for this examination. All measurements were calculated based on NASCET criteria. CT DOSE: 1124.64 mGy.cm Comparison: None available at the time of this dictation. FINDINGS: CT head: There is no acute intracranial hemorrhage or evidence of acute territorial infarction. No shift of the midline structures, mass effect, or extra-axial abnormalities are shown. Focal encephalomalacia is noted in the left frontal lobe which may be due to prior infarct. Calcification of the falx is noted. Lungs and soft tissues are unremarkable. CTA Neck: A 3 vessel aortic arch is shown. There is no significant atherosclerotic plaque in the aortic arch or the origins of the innominate, left common carotid, and left subclavian arteries. The common carotid, external carotid, cervical segments of the internal carotid arteries, and the cervical segments of the vertebral arteries are patent without hemodynamically significant stenosis. The left vertebral artery is dominant. CTA Head: The anterior and posterior cerebral circulations are patent. No hemodynamically significant stenosis, aneurysm, dissection, or arteriovenous malformation is shown. IMPRESSION: 1. No acute intracranial hemorrhage, evidence of acute territorial infarction, or other acute intracranial disease process. 2. No occlusion, hemodynamically significant stenosis, or dissection in the major cervical arteries. 3. No occlusion, hemodynamically significant stenosis, aneurysm, dissection, or arteriovenous malformation in the major intracranial arteries. Assessment of stenosis of the internal carotid arteries is based on NASCET criteria. ACT 112: Negative or not required by law. Electronically signed by: Aj Stockton M.D. 04/07/2023 12:51 PM Code Status & VTE Plan Code Status DNR/DNI discussed with the patient at bedside Supervising Physician Co-Signing Physician Notes I have seen and examined the patient and have discussed the case with the provider above. I agree with the assessment and plan as stated with the foll owing exceptions. The patient is an 82-year-old man who ambulates with a walker at baseline reporting progression of weakness and inability to complete ADLs without assistance. This morning he had a period of confusion and was disoriented. This was associated by headache since overnight. He reports his headache is improved now and he is now mentating clearly. There were no other strokelike sy mptoms noted. A brain MRI reveals chronic and senescent change with no acute intracranial abnormality. There is no leukocytosis or concerning anemia with a normal platelet count. Creatinine was slightly elevated to 1.6 with a baseline of 1.3, and he does have a history of renal insufficiency. There was no concerning liver enzyme elevation and he is euthyroid. EKG revealed sinus rhythm with no obvious ischemia. No electrolyte abnormality that is in need of correction. Troponin elevation was mildly elevated to 25 with repeat pending. He denies any issues with chest discomfort and is currently eating dinner without any issues. No gross focal neurologic deficits. PT/OT to evaluate and consideration for rehab. Patient notes that he has been trying to get into rehab as an outpatient recently. I did try to reach out to his but she was not answering when called by phone. Abran,
--- NOTE | 2023-04-07 17:17 | Magnetic Resonance Report ---
MRI OF THE BRAIN WITHOUT IV CONTRAST CLINICAL HISTORY: Change in mental status. Stroke like symptoms. Slurred speech. COMPARISON STUDY: CT of the brain dated 04/07/2023. TECHNIQUE: MRI of the brain was performed utilizing various T1 and T2-weighted sequences in the axial , sagittal, and coronal planes. IV contrast was not administered for this examination. The examinatio n is degraded by motion artifact. FINDINGS: Brain parenchyma: There is age related involutional change noting moderate to advanced subcortical an d periventricular microangiopathic disease. Left frontal encephalomalacia is consistent with a remote infarct. 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 There is no hemorrha ge or mass effect. There is no restricted diffusion to suggest acute ischemia. Zhong-white matter diff erentiation is preserved. No extra-axial fluid collection is seen. The cerebellar tonsils are normal in configuration. Ventricles, sulci, and cisterns: Prominent secondary to involutional change. Pituitary and sella: Unremarkable. Intracranial vasculature: Normal flow voids are maintained at the skull base. Orbits: The bony orbits are grossly intact. Orbital contents are normal in appearance noting bilatera l ocular lens implants. Sinuses and mastoids: There is an 8 mm retention cyst in the right maxillary antrum. The paranasal si nuses and mastoid air cells are otherwise clear. Calvarium: Unremarkable. Cervical cord: Partially visualized cervical spinal cord is normal in morphology and signal intensity . IMPRESSION: Chronic and senescent change as above with no acute intracranial abnormality. ACT 112: Negative or not required by law. Electronically signed by: Matias Nuñez M.D. 04/07/2023 5:16 PM
[2023-04-07] MEDS ORDERED: GLUCAGON FOR INJ 1 MG VIAL SQ PRN (18:04)
[2023-04-07] MEDS ORDERED: ALBUT/IPRATROP 3MG/0.5MG NEB 3 ML VIAL INH PRN ×2 (18:04→19:00)
[2023-04-07] MEDS ORDERED: ONDANSETRON INJ 2 MG/ML 2 ML VIAL IV PRN (18:04)
[2023-04-07] MEDS ORDERED: GLUCOSE 40% GEL 15 GM TUBE PO PRN (18:04)
[2023-04-07] MEDS ORDERED: ALBUTEROL HFA 8 GM INHALER INH PRN (18:04)
[2023-04-07] MEDS ORDERED: CARBOHYDRATES FOR HYPOGLYCEMIA PO PRN (18:04)
[2023-04-07] MEDS ORDERED: PHARMACIST DISCHARGE MED REC CONSULT PRN (18:04)
[2023-04-07] MEDS ORDERED: ASPIRIN 81 MG ECTAB PO SCH (18:04)
[2023-04-07] MEDS ORDERED: GLUCOSE 10 TAB/TUBE PO PRN (18:04)
[2023-04-07] MEDS ORDERED: DEXTROSE 50% 50 ML SYRINGE IV PRN (18:04)
[2023-04-07] MEDS: ACETAMINOPHEN 325 MG TAB PO PRN (19:30)
[2023-04-07] MEDS: CALCIUM 600MG + VIT D 400 IU TAB PO SCH (21:06)
[2023-04-07] MEDS: METOPROLOL SUCC 25MG EXT REL TAB PO SCH (21:06)
[2023-04-08] MEDS: UMECLIDINIUM/VILANTEROL 62.5/25MCG 7 PUFFS/INHALER INH SCH (07:39)
[2023-04-08] MEDS: MULTIVITAMIN TAB PO SCH (07:40)
[2023-04-08] MEDS: EZETIMIBE 10 MG TABLET PO SCH (07:40)
[2023-04-08] MEDS: ASPIRIN 81 MG ECTAB PO SCH (07:40)
[2023-04-08] MEDS: DULoxetine HCL 60 MG CAP PO SCH (07:40)
[2023-04-08] MEDS: FLUTICASONE FUROATE 100MCG 14 PUFFS/INHALER INH SCH (07:40)
[2023-04-08] MEDS: CYANOCOBALAMIN (B-12) 500 MCG TABLET PO SCH (07:41)
[2023-04-08] MEDS: ACETYLCYSTEINE 600 MG CAP PO SCH (07:41)
[2023-04-08] MEDS: SPIRONOLACTONE 12.5 MG TAB PO SCH (07:41)
[2023-04-08] MEDS: allopurinoL 300 MG TAB PO SCH (07:41)
[2023-04-08] MEDS: METOPROLOL SUCC 25MG EXT REL TAB PO SCH (07:41)
[2023-04-08] MEDS: PSYLLIUM or GUAR GUM FIBER POWDER PACKET PO SCH (07:42)
[2023-04-08 07:50] LABS: Basophils # (auto) 0.05 K/uL (0-0.2); Basophils % (auto) 0.6 %; Eosinophils # (auto) 0.27 K/uL (0-0.50); Eosinophils % (auto) 3.5 %; Hematocrit (blood only) 42.6 % (42.0-52.0); Hemoglobin 13.7 g/dl (14.0-18.0); Immature Granulocytes % (auto) 1.3 %; Lymphocytes % (auto) 7.7 %; Mean Corpuscular Hemoglobin 32.4 pg (25.0-34.0); Mean Corpuscular Hgb Conc 32.2 g/dL (32.0-36.0); Mean Corpuscular Volume 100.7 fL (80.0-100.0); Mean Platelet Volume 9.7 fL (9.4-12.4); Monocytes % (auto) 6.5 %; Neutrophils # (auto) 6.23 K/uL (1.40-6.50); Neutrophils % (auto) 80.4 %; Platelet Count 179 K/uL (130-400); RDW Coefficient of Variation 14.2 % (11.5-14.5); RDW Standard Deviation 52.4 fL (36.4-46.3); Red Blood Count 4.23 M/uL (4.70-6.10); White Blood Count 7.75 K/ul (4.8-10.8)
[2023-04-08 08:03] LABS: Estimated Average Glucose 111 mg/dl; Hemoglobin A1C 5.5 % (4.5-5.6)
[2023-04-08 08:08] LABS: BUN Creatinine Ratio 19.8 (10-20); Calcium 10.1 mg/dl (8.6-10.3); Creatinine Clr Calc Pharmacy 32.4 ml/min; Est GFR (African American) 35.4 ml/min; Est GFR (Non-African American) 30.5 ml/min; Potassium 4.1 mmol/L (3.5-5.1)
[2023-04-08] MEDS ORDERED: NON-FORMULARY MEDICATION (Fluticasone-Umeclidin-Vilanter [Trelegy Ellipta] 100-62.5-25 mcg INH SCH (09:00)
--- NOTE | 2023-04-08 11:42 | Cardiology Consultation ---
Date of Consultation April 08, 2023 Assessment & Plan (1) Hypertensive urgency: (2) Bradycardia: (3) CAD (coronary artery disease): (4) CKD (chronic kidney disease), stage III: Plan IMPRESSION: 82 year old medically complex male who presented due to altered mental status secondary to likely TIA- found to be hypertensive and hypoxic on exam. CTA/MRI of the head without acute findings. Carries a PMH of nonobstructive CAD, AAA, HTN, and CKD stage 4 Telemetry revealing episodes of sinus bradycardia with intermittent episodes of a Mobitz type 1 vs type 2 HB. Patient asymptomatic. PLAN: -Reduce metoprolol succinate to 25 mg daily. -Start Norvasc 2.5 mg twice daily to improve BP readings. -Renal function at baseline, continue Aldactone as ordered. -Continue ASA 81 mg daily -Not on statin therapy due to history of intolerance, continue Zetia. -Consider nocturnal pulse ox study due to ongoing confusion- rule out nocturnal hypoxia. Case discussed with Dr. Green- will follow. Supervising Physician Co-Signing Physician Notes Patient seen and examined, chart, medications, telemetry reviewed. Assessment and plan as above 82-year-old male with hypertension, stage IV chronic kidney disease and vascular disease admitted with episodic complaints of confusion and hypertensive urgency. Telemetry earlier today demonstrated transient bradycardia with Mobitz type I heart block, blocked PAC Patient with known obstructive sleep apnea with CPAP per report Plan as outlined we will reduce metoprolol to 25 mg/day given transient bradycardia. I suspect in part due to hypoxia during sleep Would resume CPAP check for nocturnal hypoxia Treat hypertension with addition of amlodipine as done History of Present Illness Reason for Consultation: Hypertensive urgency Requesting Physician: Lisa Hospitalist Attending Physician: Xavier Magdaleno MD History of Present Illness Medically complex 85-year-old male with past medical history as stated below. Initially presented to the [facility] emergency department due to altered mental status and unsteady gait yesterday morning. mentioned a right-sided facial droop which resolved spontaneously prior to arrival to the ED. Blood pressures on arrival were hypertensive and patient was hypoxic. Son notes BPs as high as 170/110s at home accompanied by nausea and headaches. CT and CTA of the head and neck were unremarkable. Brain MRI revealed chronic age-related changes without acute intracranial abnormalities. Chest x-ray showing no acute abnormalities. Tele: NSR in the 70s with periods of bradycardia- appears to be a Mobitz 1 vs Mobitz 2 at times, HR drop to 30-40s EKG showing SB with 1st degree AVB, 70s. Upon entrance into the room patient resting in bed. Family at bedside. Currently patient is feeling well without acute complaint. He is asymptomatic with slower rates on telemetry. No chest pain, shortness of breath at baseline. No palpitations or lightheadedness. Denies head aches or nausea at this time. Patient does not recall events leading up to his presentation to the ED. Ambulates with assistance of a walker at home. Primary outpatient design checker: Dr. Green Past medical history: 1.Calcific coronary disease with moderate coronary artery atherosclerosis, but no high-grade obstruction by cardiac catheterization, April 2016. 2. Small abdominal aortic aneurysm, 3.8 cm 05/2021 3. Chronic obstructive lung disease, follows with pulmonology. 4. Obstructive sleep apnea, on CPAP supplementation. 5.Hypertension. 6.Hyperlipidemia prior statin intolerance 7. Ascending aortic aneurysm, measuring 4.2- 4.[address] 08/2019, 09/2020 and 4.6 cm by echo 03/2020. 8. CKD stage IV, follows with nephrology, baseline creatinine ~2.1 per outpatient records Allergies Allergy/AdvReac Type Severity Reaction Status Date / Time Fvkdysb-QSS-ApF Reductase AdvReac Intermediate Dizziness Verified 09/14/21 09:32 Inhibitor [Gjbizzd-Hry-Hnv Reductase Inhibitor] Home Medications Medication Instructions Recorded Confirmed Type allopurinol 300 mg tablet 1.5 tab PO QAM 05/30/18 04/07/23 History aspirin 81 mg tablet,delayed 81 mg PO Q2D 05/30/18 04/07/23 History release calcium carbonate 500 mg-vitamin 1 tab PO HS 05/30/18 04/07/23 History D3 5 mcg (200 unit) tablet (Calcium 500 + D) docusate sodium 100 mg capsule 100 mg PO BID PRN Constipation 05/30/18 04/07/23 History (Colace) duloxetine 30 mg capsule,delayed 60 mg PO QAM 05/30/18 04/07/23 History release (Cymbalta) ipratropium 0.5 mg-albuterol 3 mg 1 dose inhalation Q6H PRN 05/30/18 04/07/23 History (2.5 mg base)/3 mL nebulization Shortness Of Breath soln metoprolol succinate 25 mg 25 mg PO BID 05/30/18 04/07/23 History tablet,extended release 24 hr multivitamin 1 tab PO QAM 05/30/18 04/07/23 History albuterol sulfate 90 mcg/actuation 2 puff inhalation Q6H PRN 06/26/18 04/07/23 History aerosol inhaler (Ventolin HFA) Shortness Of Breath Or Wheezing ezetimibe 10 mg tablet (Zetia) 10 mg PO QAM 06/26/18 04/07/23 History acetylcysteine 600 mg capsule (NAC) 600 mg PO DAILY 12/02/20 04/07/23 History cephalexin 500 mg tablet 500 mg PO UD PRN Other 12/02/20 04/07/23 History cyanocobalamin (vitamin B-12) 1,000 mcg PO QAM 12/02/20 04/07/23 History 1,000 mcg tablet fluticasone fur. 100 mcg-umeclid 1 inh inhalation QAM 12/02/20 04/07/23 History 62.5 mcg-vilant 25 mcg inhalat.powder (Trelegy Ellipta) furosemide 40 mg tablet 40 mg PO QAM PRN edema 12/02/20 04/07/23 History psyllium husk 3.4 gram/5.4 gram 1 tbsp PO QAM 12/02/20 04/07/23 History oral powder (Metamucil) spironolactone 25 mg tablet 12.5 mg PO Q OTHER DAY 12/02/20 04/07/23 History (Aldactone) Patient History Medical History AAA (abdominal aortic aneurysm) (CARDIO MONITORING) CAD (coronary artery disease) 2015 cath showed no high-grade obstruction -- no stents. Follows with S cardio. Chronic back pain CKD (chronic kidney disease), stage III COPD (chronic obstructive pulmonary disease) HLD (hyperlipidemia) Hx of gout Hx of melanoma of skin Hypertension Neuropathy BLE Osteoarthritis Sleep apnea CPAP -- reports at least 4-5hrs of use every night SOB (shortness of breath) on exertion Surgical History Fusion of spine LUMBAR X 2 H/O esophagogastroduodenoscopy History of adenoidectomy History of cardiac cath 2016- NO STENTS History of partial knee replacement RT History of tonsillectomy Hx of LASIK Status post Mohs surgery Family History Mother Diabetes Brother Family hx of colon cancer Diabetes Other Bladder cancer COPD (chronic obstructive pulmonary disease) Hypertension No family history of adverse response to anesthesia Social History Smoking Status: Never smoker Second Hand Exposure: No; Do You Dip or Chew Tobacco: No; Tobacco Cessation Education Requested by Patient: No Hx Alcohol Use: No Hx Substance Use: No Preferred Language: Faroese Communication Ability: Effective Visual Impairment: No Limitations Clam Sorter Required: No Beliefs That Will Affect Care: None marital status: Current Living Situation: Spouse Other Information That Helps Us Care for You: No Feels Safe at Home: Yes Safety Concerns: Feels Safe At This Time Assistive Devices: CPAP, Walker and Wheelchair Review of Systems Review of Systems: All systems reviewed & are unremarkable except as noted in HPI & below Physical Exam Constitutional: WD/WN, vitals as above no acute distress Neck: normal visual inspection and trachea midline Respiratory: Auscultation: + rales and + wheezes; no rhonchi Cardiovascular: Rate/Rhythm: regular rate and regular rhythm Heart Sounds: normal S1 and normal S2; no murmur (distant heart sounds) Vessels: no JVD Extremities: + edema (+1 BL edema, compression socks on, venous stasis changes.) Gastrointestinal (Abdomen): normal bowel sounds, soft, nontender, no hepatosplenomegaly Neurologic: PERRL, EOMI, accommodation nl, no face palsy, no dysarthria Psychiatric: A+Ox3, euthymic affect Results & Data Vital Signs (Past 12 Hours) Vital Signs Temp Pulse Pulse Resp BP BP Pulse Ox 04/08/23 11:34 36.5 C 76 20 160/110 H 92 04/08/23 07:00 82 04/08/23 08:24 90 137/86 04/08/23 07:27 36.7 C 78 20 185/112 H 92 04/08/23 02:56 36.4 C L 80 20 169/86 H 91 04/07/23 23:48 78 04/07/23 23:45 36.4 C L 79 20 127/77 92 O2 Del Method 04/08/23 11:34 Room Air 04/08/23 07:00 04/08/23 08:24 04/08/23 07:27 Room Air 04/08/23 02:56 Room Air 04/07/23 23:48 04/07/23 23:45 Room Air Laboratory Results Cardiac Enzymes 04/07/23 04/07/23 Range/Units 11:02 19:51 Troponin I High Sens 25.4 H 24.5 H (0-20) pg/ml Lipids 04/08/23 Range/Units 07:04 Triglycerides 67 (0-150) mg/dl Cholesterol 125 (0-200) mg/dl HDL Cholesterol 42 mg/dl Cholesterol/HDL Ratio 3.0 (0-5) CBC 04/08/23 Range/Units 07:04 WBC 7.75 (4.8-10.8) K/ul RBC 4.23 L (4.70-6.10) M/uL Hgb 13.7 L (14.0-18.0) g/dl Hct 42.6 (42.0-52.0) % Plt Count 179 (130-400) K/uL Neut # (Auto) 6.23 (1.40-6.50) K/uL Lymph # (Auto) 0.60 L (1.2-3.4) K/uL [place] # (Auto) 0.50 (0.11-0.59) K/uL Eos # (Auto) 0.27 (0-0.50) K/uL Baso # (Auto) 0.05 (0-0.2) K/uL Comprehensive Metabolic Panel 04/08/23 Range/Units 07:04 Sodium 140 (136-145) mmol/L Potassium 4.1 (3.5-5.1) mmol/L Chloride 107 (98-107) mmol/L Carbon Dioxide 27 (21-32) mmol/L BUN 39 H (6-23) mg/dl Creatinine 1.97 H D (0.6-1.4) mg/dl Glucose 92 (70-99(Fasting)) mg/dl Calcium 10.1 (8.6-10.3) mg/dl Intake and Output 04/07/23 04/08/23 04/08/23 22:59 06:59 14:59 Intake Total 240 / 1090 350 / 1090 Output Total 350 / 350 Balance 240 / 740 0 / 740 -1 Intake: Oral 240 / 590 350 / 590 Output: Urine 350 / 350 # Bowel Movements Other: Other Intake Source Sips # Unmeasured Voids 0 Weight 91.5 kg 91.8 kg Weight Measurement Method Built in [facility] Built in [facility]
[2023-04-08] MEDS ORDERED: amLODIPine BESYLATE 5 MG TAB PO ONE (12:25)
--- NOTE | 2023-04-08 14:16 | Electrocardiogram Report ---
Test Reason : Blood Pressure : / mmHG Vent. Rate : 072 BPM Atrial Rate : 072 BPM P-R Int : 254 ms QRS Dur : 096 ms QT Int : 408 ms P-R-T Axes : 035 -03 043 degrees QTc Int : 446 ms Sinus rhythm with frequent Premature atrial complexes and probable blocked PAC with pause with 1st degree A-V block Otherwise normal ECG When compared with ECG of 07-APR-2023 10:54, No significant change was found Confirmed by Uzair Stroud ([id number]) on 04/08/2023 12:30:54 PM Referred By: REFERRED SELF Confirmed By:Uzair Stroud
--- NOTE | 2023-04-08 14:16 | Electrocardiogram Report ---
Test Reason : Blood Pressure : / mmHG Vent. Rate : 085 BPM Atrial Rate : 085 BPM P-R Int : 242 ms QRS Dur : 088 ms QT Int : 384 ms P-R-T Axes : 008 -11 034 degrees QTc Int : 456 ms Sinus rhythm with 1st degree A-V block Otherwise normal ECG When compared with ECG of 23-JUL-2015 11:03, CO interval has increased Confirmed by Uzair Stroud ([id number]) on 04/08/2023 12:31:36 PM Referred By: REFERRED SELF Confirmed By:Uzair Stroud
--- NOTE | 2023-04-08 14:27 | Neurology Consultation ---
Date of Consultation April 08, 2023 Assessment & Plan (1) Altered mental status: (2) Hypertensive urgency: (3) H/O: stroke: Plan 82-year-old male presenting with resolved episode of altered mental status and right facial weakness occurring in the context of hypertensive urgency. MRI has revealed a chronic left frontal infarct with associated encephalomalacia as well as a small chronic right cerebellar infarct in the context of chronic moderately extensive small vessel ischemic disease and cerebral atrophy. His CTA of the head and neck are unremarkable. He has not had any signs or symptoms suggestive of seizure activity. In spite of the observed imaging findings, no known prior history of clinical stroke. He does have a history of hypertension, hyperlipidemia, coronary artery disease, chronic kidney disease, and obstructive sleep apnea with COPD and hypoxia. His functional status is largely limited by chronic spinal myelopathy with a history of multiple spinal fusions. He is able to ambulate with a walker at home. I suspect his episode of confusion was related to hypertensive urgency. I am aware that the episode occurred with an associated right facial droop. I believe this finding is related to his chronic left frontal infarct as identified on MRI and CT. Chronic infarcts may sometimes produce transient symptoms in the context of hypertensive urgency as well as other acute active medical comorbidities. Again, there is no evidence of acute or subacute infarct on his imaging and he does not have any evidence of significant vascular lesion on CT angiography. Patient should continue with daily low-dose aspirin and Zetia. He has a history of intolerance to statins. I think it would be reasonable to consider obtaining 30-day mobile cardiac outpatient telemetry. If he is found to have atrial fibrillation, would then need to consider starting Eliquis. Because he has not had any observed seizure activity, I do not think an EEG is necessary at this time. However, the chronic left frontal infarct, with associated encephalomalacia, extending to the cortex, does increase his risk for seizures. If he were to experience any potential seizure-like activity, would recommend EEG in that context. I do not think empiric treatment with an ant iconvulsant is necessary at this time. History of Present Illness Reason for Consultation: TIA vs HTN urgency Requesting Physician: Rasta Attending Physician: Xavier Magdaleno MD History of Present Illness The patient is an 82-year-old male who presented to the emergency department yesterday morning for further assessment of an episode of confusion and disorientation lasting about 1 hour. He had complained of headache and nausea and also had a right facial droop which seem new. His symptoms have currently resolved. He has chronic ambulatory dysfunction in the context of a history of multiple spinal surgeries. He has been afebrile. He has been markedly hypertensive and had presented with a blood pressure of 183/108. A CT of the head including CTA of the head and neck was negative for vascular lesion. There was evidence of focal encephalomalacia within the left frontal lobe likely related to a chronic infarct. A follow-up brain MRI was negative for acute or subacute stroke, again noting chronic and senescent changes. I did independently review these images. No evidence of acute infarct. There is a chronic left frontal lobe infarct with associated encephalomalacia. There is a small chronic right cerebellar infarct as well as moderately extensive chronic small vessel ischemic disease and generalized atrophy. The patient does not have a known history of stroke or TIA. He does have a history of hypertension and hyperlipidemia as well as hypoxia and obstructive sleep apnea. Labs reviewed. WBC 7.75, hemoglobin 13.7, hematocrit 42.6, MCV 100.7, platelet count 179, sodium 140, potassium 4.1, BUN 39, creatinine 1.97, glucose 92, hemoglobin A1c 5.5, calcium 10.1, magnesium 2.0, AST 10, ALT 10, troponin mildly elevated, triglycerides 67, cholesterol 125, LDL 70, VLDL 13, HDL 42, TSH 1.686, urinalysis negative. An electrocardiogram reveals a sinus rhythm with frequent premature atrial complexes, first-degree AV block. He was seen by cardiology this morning regarding hypertensive urgency, bradycardia, history of coronary artery disease. He was started on Norvasc was to continue with daily low-dose aspirin. History notable for statin intolerance, on Zetia. Although patient's brain MRI does reveal evidence of chronic infarct, he denies a clinical history of stroke or TIA. Further, he denies a history of seizures. He has not had any witnessed seizure-like activity in the context of this current hospitalization. Allergies Allergy/AdvReac Type Severity Reaction Status Date / Time Cneogci-TPB-YmN Reductase AdvReac Intermediate Dizziness Verified 09/14/21 09:32 Inhibitor [Uwojpsn-Wyd-Idm Reductase Inhibitor] Home Medications Medication Instructions Recorded Confirmed Type allopurinol 300 mg tablet 1.5 tab PO QAM 05/30/18 04/07/23 History aspirin 81 mg tablet,delayed 81 mg PO Q2D 05/30/18 04/07/23 History release calcium carbonate 500 mg-vitamin 1 tab PO HS 05/30/18 04/07/23 History D3 5 mcg (200 unit) tablet (Calcium 500 + D) docusate sodium 100 mg capsule 100 mg PO BID PRN Constipation 05/30/18 04/07/23 History (Colace) duloxetine 30 mg capsule,delayed 60 mg PO QAM 05/30/18 04/07/23 History release (Cymbalta) ipratropium 0.5 mg-albuterol 3 mg 1 dose inhalation Q6H PRN 05/30/18 04/07/23 History (2.5 mg base)/3 mL nebulization Shortness Of Breath soln metoprolol succinate 25 mg 25 mg PO BID 05/30/18 04/07/23 History tablet,extended release 24 hr multivitamin 1 tab PO QAM 05/30/18 04/07/23 History albuterol sulfate 90 mcg/actuation 2 puff inhalation Q6H PRN 06/26/18 04/07/23 History aerosol inhaler (Ventolin HFA) Shortness Of Breath Or Wheezing ezetimibe 10 mg tablet (Zetia) 10 mg PO QAM 06/26/18 04/07/23 History acetylcysteine 600 mg capsule (NAC) 600 mg PO DAILY 12/02/20 04/07/23 History cephalexin 500 mg tablet 500 mg PO UD PRN Other 12/02/20 04/07/23 History cyanocobalamin (vitamin B-12) 1,000 mcg PO QAM 12/02/20 04/07/23 History 1,000 mcg tablet fluticasone fur. 100 mcg-umeclid 1 inh inhalation QAM 12/02/20 04/07/23 History 62.5 mcg-vilant 25 mcg inhalat.powder (Trelegy Ellipta) furosemide 40 mg tablet 40 mg PO QAM PRN edema 12/02/20 04/07/23 History psyllium husk 3.4 gram/5.4 gram 1 tbsp PO QAM 12/02/20 04/07/23 History oral powder (Metamucil) spironolactone 25 mg tablet 12.5 mg PO Q OTHER DAY 12/02/20 04/07/23 History (Aldactone) Patient History Medical History AAA (abdominal aortic aneurysm) (CARDIO MONITORING) CAD (coronary artery disease) 2015 cath showed no high-grade obstruction -- no stents. Follows with S cardio. Chronic back pain CKD (chronic kidney disease), stage III COPD (chronic obstructive pulmonary disease) HLD (hyperlipidemia) Hx of gout Hx of melanoma of skin Hypertension Neuropathy BLE Osteoarthritis Sleep apnea CPAP -- reports at least 4-5hrs of use every night SOB (shortness of breath) on exertion Surgical History Fusion of spine LUMBAR X 2 H/O esophagogastroduodenoscopy History of adenoidectomy History of cardiac cath 2015- NO STENTS History of partial knee replacement RT History of tonsillectomy Hx of LASIK Status post Mohs surgery Family History Mother Diabetes Brother Family hx of colon cancer Diabetes Other Bladder cancer COPD (chronic obstructive pulmonary disease) Hypertension No family history of adverse response to anesthesia Social History Smoking Status: Never smoker Second Hand Exposure: No; Do You Dip or Chew Tobacco: No; Tobacco Cessation Education Requested by Patient: No Hx Alcohol Use: No Hx Substance Use: No Preferred Language: Lithuanian Communication Ability: Effective Visual Impairment: No Limitations Tablet Tester Required: No Beliefs That Will Affect Care: None marital status: Current Living Situation: Spouse Other Information That Helps Us Care for You: No Feels Safe at Home: Yes Safety Concerns: Feels Safe At This Time Assistive Devices: CPAP, Walker and Wheelchair Review of Systems Constitutional: no fever and no chills Eyes: no blind spots and no diplopia Ear, Nose, Mouth, Throat: no hearing loss Respiratory: no cough and no dyspnea Cardiovascular: no chest pain and no palpitations Gastrointestinal: as per Subjective / HPI and + nausea Genitourinary: no urinary incontinence Musculoskeletal: + back pain Integumentary: no rash and no lesions Neurologic: as per Subjective / HPI Psychiatric: no depression and no anxiety Hematologic / Lymphatic: no easy bleeding and no easy bruising Exam (Neuro) Constitutional: well developed and well nourished; no acute distress Eyes: normal visual shipley by confrontation, PERRL and EOM intact bilaterally Cardiovascular: Vessels: no carotid bruit Neurologic: Oriented to:: Person, Place and Time Memory: Remote Intact; negative Short Term Intact Attention: Span Intact; negative Concentration Intact Speech Fluency: negative Dysarthria or Dysfluency Fund of Knowledge: Current Events, Past History and Vocabulary Cranial Nerves: Normal II, III, IV, , V, VII, VIII, IX, X, XI and XII Motor Strength: Normal Upper Extremities; negative Normal Lower Extremities Motor Tone: Normal Lower Extremities and Normal Upper Extremities Muscle Bulk/Involuntary Movements: Muscle Atrophy and Action Tremor Sensation: negative Light Touch Intact, Pain/Temperature Intact, Vibration Intact or Proprioception Intact Coordination: Heel-Pires Abnormal; negative Dysdiadochokinesia or Finger-Nose Abnormal Deep Tendon Reflexes: Rt Triceps: 2+, Lt Triceps: 2+, Rt Biceps: 2+, Lt Biceps: 2+, Rt Brachioradialis: 2+, Lt Brachioradialis: 2+, Rt Patellar: 1+, Lt Patellar: 1+, Rt Ankle: 1+ and Lt Ankle: 1+ Special Tests: negative Arya rodriguez Present Details: Gait cannot be safely tested Results & Data Vital Signs (Past 12 Hours) Vital Signs Temp Pulse Pulse Resp BP BP Pulse Ox 04/08/23 11:34 36.5 C 76 20 160/110 H 92 04/08/23 07:00 82 04/08/23 08:24 90 137/86 04/08/23 07:27 36.7 C 78 20 185/112 H 92 04/08/23 02:56 36.4 C L 80 20 169/86 H 91 O2 Del Method 04/08/23 11:34 Room Air 04/08/23 07:00 04/08/23 08:24 04/08/23 07:27 Room Air 04/08/23 02:56 Room Air Coding Level of Care Code 96388 INT INP/OBS CARE 2/55MIN Diagnoses Altered mental status R41.0 Altered mental status type: disorientation Hypertensive urgency I16.0 H/O: stroke Z86.73 (1) Altered mental status Altered mental status type: disorientation Qualified Code(s): R41.0 - Disorientation, unspecified
--- NOTE | 2023-04-08 16:59 | Hospitalist Progress Note ---
Date of Service April 08, 2023 Assessment & Plan (1) AMS (altered mental status): Plan: - Admitted to PCU - Stroke order set completed, no indication for thrombolytic - CT head reviewed and is negative - MRI brain wo contrast - Chronic and senescent change as above with no acute intracranial abnormality. - Cont baby aspirin - Neurology consulted - I suspect his episode of confusion was related to hypertensive urgency. I am aware that the episode occurred with an associated right facial droop. I believe this finding is related to his chronic left frontal infarct as identified on MRI and CT. Chronic infarcts may sometimes produce transient symptoms in the context of hypertensive urgency as well as other acute active medical comorbidities. Again, there is no evidence of acute or subacute infarct on his imaging and he does not have any evidence of significant vascular lesion on CT angiography. Patient should continue with daily low-dose aspirin and Zetia. He has a history of intolerance to statins. I think it would be reasonable to consider obtaining 30-day mobile cardiac outpatient telemetry. If he is found to have atrial fibrillation, would then need to consider starting Eliquis. Because he has not had any observed seizure activity, I do not think an EEG is necessary at this time. However, the chronic left frontal infarct, with associated encephalomalacia, extending to the cortex, does increase his risk for seizures. If he were to experience any potential seizure-like activity, would recommend EEG in that context. I do not think empiric treatment with an a nticonvulsant is necessary at this time. - PT/OT consults placed - Speech therapy eval (2) Hypertensive urgency: Plan: - SBP 175/110 at home during associated nausea, headache, confusion and difficulty getting dressed, improved status post IV labetalol given in the ER -Patient also became bradycardic into 30s (04/08/23) and concern for AV block, Mobitz type I. ECG obtained and cardiology consulted Telemetry earlier today demonstrated transient bradycardia with Mobitz type I heart block, blocked PAC Patient with known obstructive sleep apnea with CPAP per report Plan - reduce metoprolol succinate to 25 mg/day given transient bradycardia. I suspect in part due to hypoxia during sleep Would resume CPAP check for nocturnal hypoxia Treat hypertension with addition of amlodipine 2.5 mg twice daily Renal function at baseline, continue Aldactone as ordered. -Continue ASA 81 mg daily (3) CAD (coronary artery disease): (4) AAA (abdominal aortic aneurysm): (5) Hypertension: (6) HLD (hyperlipidemia): Plan: - Continue spironolactone MWF, pt is taking lasix prn-does not appear to be volume overloaded at this time, monitor - Continue baby aspirin - Checked lipid panel, continue Zetia 10 mg in the morning - Last a1c was 5.7, previously diabetic but manages with diet, not on any hyperglycemic medications (7) COPD (chronic obstructive pulmonary disease): Plan: - No acute exacerbation - May continue Trelegy - Patient appears to have saturations that have around 90 to 93% on room air, had 1 bout of 88%, CXR is negative Hx of ARIANA - oon CPAP (8) CKD (chronic kidney disease), stage III: Plan: - CR/BUN 40/1.62, baseline Cr appears to be 1.3-1.4, hold lasix for now, monitor volume overload (9) ARIANA (obstructive sleep apnea): Plan: - Cont cpap HS DVT ppx: - teds, scds CODE: DNR/DNI Dispo: From home, likely to remain in the hospital x 1-2 days (10) Weakness: Admission and Anticipated Discharge Date Admission Date: April 07, 2023 Subjective Pt seen in follow up of confusion, HTN urgency, found to have transient bradycardia Currently laying in bed in NAD Pt reports feeling back to baseline but can't tell me anything about what brought him to the hospital Denies any new weakness Denies headache, but reports having HEBERT yesterday Speech is currently normal and no facial droop noted (per ED note - pt had some facial droop yesterday reported) Pt's son present at the bedside, however says he was not there yesterday to help w/ history Discussed bradycardia/ AV block and HTN w/ cardiology Neurology consulted for AMS/ poss. TIA Review of Systems Review of Systems: All systems reviewed & are unremarkable except as noted in Subjective Physical Exam Physical Exam: General: WD/WN, elderly M in NAD Head: Normocephalic, atraumatic, no facial droop ENT: PERRL, EOMI,mucous membranes moist Chest: Clear to auscultation, no adventitious breath sounds Cardiac: Regular rate and rhythm, no murmur, no JVD Abdominal: NABS x 4 quadrants, soft, nondistended, nontender to palpation Extremities: Normal inspection, no peripheral edema or erythema, moves extremi ties Psych: Normal mood and affect Neuro: AAO x 3, speech is clear, no facial asymmetry, answers appropriately (however doesn't recall well events prior to coming to the hospital), moves extremities (+ some chronic LE weakness) Results & Data Results & Data Vital Signs (Past 12 Hours) Vital Signs Temp Pulse Pulse Resp BP BP Pulse Ox 04/08/23 15:19 36.8 C 85 20 154/98 H 95 04/08/23 14:00 87 14 155/86 H 97 04/08/23 11:34 36.5 C 76 20 160/110 H 92 04/08/23 07:00 82 04/08/23 08:24 90 137/86 04/08/23 07:27 36.7 C 78 20 185/112 H 92 O2 Del Method 04/08/23 15:19 Room Air 04/08/23 14:00 Room Air 04/08/23 11:34 Room Air 04/08/23 07:00 04/08/23 08:24 04/08/23 07:27 Room Air Medications Administered Current Inpatient Medications Acetaminophen (Acetaminophen 325 Mg Tab) 650 mg PO Q4H PRN PRN Reason: Moderate Pain (Scale 4, 5, 6) Stop: 05/07/23 18:03 Last Admin: 04/07/23 19:30 Dose: 650 mg Acetylcysteine (Acetylcysteine 600 Mg Cap) 600 mg PO DAILY [facility] Stop: 05/08/23 08:59 Last Admin: 04/09/23 07:35 Dose: 600 mg Albuterol (Albuterol Hfa 8 Gm Inhaler) 2 puffs INH Q6R PRN PRN Reason: Shortness Of Breath Or Wheezin Stop: 05/07/23 18:03 Albuterol (Albut/Ipratrop 3mg/0.5mg Neb 3 Ml Vial) 3 ml INH Q6R PRN; Protocol PRN Reason: Shortness Of Breath Stop: 05/07/23 18:03 Allopurinol (Allopurinol 300 Mg Tab) 450 mg PO QAM [facility] Stop: 05/08/23 08:59 Last Admin: 04/09/23 07:35 Dose: 450 mg Amlodipine Besylate (Amlodipine Besylate 5 Mg Tab) 2.5 mg PO BID [facility] Stop: 05/08/23 20:59 Last Admin: 04/09/23 07:35 Dose: 2.5 mg Aspirin (Aspirin 81 Mg Ectab) [facility] [place] Stop: 05/08/23 08:59 Last Admin: 04/09/23 07:35 Dose: 81 mg Calcium/Vitamin D (Calcium 600mg + Vit D 400 Iu Tab) 1 tab PO HS [facility] Stop: 05/07/23 20:59 Last Admin: 04/08/23 20:04 Dose: 1 tab Cyanocobalamin (Cyanocobalamin (B-12) 500 Mcg Tablet) 1,000 mcg [facility] [place] Stop: 05/08/23 08:59 Last Admin: 04/09/23 07:36 Dose: 1,000 mcg Dextrose (Dextrose 50% 50 Ml Syringe) 25 - 50 ml IV UD PRN; Protocol PRN Reason: Hypoglycemia Protocol Stop: 05/07/23 18:03 Docusate Sodium (Docusate Sodium 100 Mg Cap) 100 mg PO BID PRN PRN Reason: Constipation Stop: 05/07/23 18:03 Duloxetine HCl (Duloxetine Hcl 60 Mg Cap) 60 mg PO [facility] Stop: 05/08/23 08:59 Last Admin: 04/09/23 07:35 Dose: 60 mg Ezetimibe (Ezetimibe 10 Mg Tablet) 10 mg PO [facility] Stop: 05/08/23 08:59 Last Admin: 04/09/23 07:35 Dose: 10 mg Fluticasone Furoate (Fluticasone Furoate 100mcg 14 Puffs/Inhaler) 1 puffs INH D AILY [facility] Stop: 05/08/23 08:59 Last Admin: 04/09/23 07:36 Dose: 1 puffs Glucagon (Glucagon For Inj 1 Mg Vial) 1 mg SQ UD PRN; Protocol PRN Reason: Hypoglycemia Protocol Stop: 05/07/23 18:03 Glucose (Glucose 10 Tab/Tube) 4 - 8 tab PO UD PRN; Protocol PRN Reason: Hypoglycemia Treatment Stop: 05/07/23 18:03 Glucose (Glucose 40% Gel 15 Gm Tube) 15 - 30 gm PO UD PRN; Protocol PRN Reason: Hypoglycemia Protocol Stop: 05/07/23 18:03 Metoprolol Succinate (Metoprolol Succ 25mg Ext Rel Tab) 25 mg PO [facility] Stop: 05/09/23 08:59 Last Admin: 04/09/23 07:36 Dose: 25 mg Miscellaneous (Carbohydrates For Hypoglycemia ) 15 - 30 gm PO UD PRN PRN Reason: Hypoglycemia Protocol Stop: 05/07/23 18:03 Multivitamins (Multivitamin Tab) 1 tab PO QAM [facility] Stop: 05/08/23 08:59 Last Admin: 04/09/23 07:36 Dose: 1 tab Ondansetron HCl (Ondansetron Inj 2 Mg/Ml 2 Ml Vial) 4 mg IV Q4H PRN PRN Reason: Nausea And Vomiting Stop: 05/07/23 18:03 Psyllium Hydrophilic Mucilloid (Psyllium Or Guar Gum Fiber Powder Packet) 1 pkt PO QAM [facility] Stop: 05/08/23 08:59 Last Admin: 04/09/23 07:35 Dose: 1 pkt Spironolactone (Spironolactone 12.5 Mg Tab) 12.5 mg PO MoWeFr@0900 [facility] Stop: 05/08/23 08:59 Last Admin: 04/08/23 07:41 Dose: 12.5 mg Umeclidinium/Vilanterol (Umeclidinium/Vilanterol 62.5/25mcg 7 Puffs/Inhaler) 1 puffs INH DAILY [facility] Stop: 05/08/23 08:59 Last Admin: 04/09/23 07:36 Dose: 1 puffs
[2023-04-08] MEDS: CALCIUM 600MG + VIT D 400 IU TAB PO SCH (20:04)
[2023-04-08] MEDS: amLODIPine BESYLATE 5 MG TAB PO SCH (20:05)
[2023-04-08] MEDS ORDERED: METOPROLOL SUCC 25MG EXT REL TAB PO SCH ×2 (21:00)
[2023-04-09 06:54] LABS: BUN Creatinine Ratio 20.3 (10-20); Calcium 10.3 mg/dl (8.6-10.3); Creatinine Clr Calc Pharmacy 29.1 ml/min; Est GFR (African American) 31.5 ml/min; Est GFR (Non-African American) 27.2 ml/min; Phosphorus 2.8 mg/dl (2.5-4.9); Potassium 4.3 mmol/L (3.5-5.1)
[2023-04-09 07:22] LABS: Basophils # (auto) 0.05 K/uL (0-0.2); Basophils % (auto) 0.5 %; Eosinophils # (auto) 0.34 K/uL (0-0.50); Eosinophils % (auto) 3.5 %; Hematocrit (blood only) 42.3 % (42.0-52.0); Hemoglobin 13.5 g/dl (14.0-18.0); Lymphocytes # (auto) 0.68 K/uL (1.2-3.4); Lymphocytes % (auto) 7.1 %; Mean Corpuscular Hemoglobin 32.3 pg (25.0-34.0); Mean Corpuscular Hgb Conc 31.9 g/dL (32.0-36.0); Mean Corpuscular Volume 101.2 fL (80.0-100.0); Mean Platelet Volume 9.5 fL (9.4-12.4); Monocytes # (auto) 0.64 K/uL (0.11-0.59); Monocytes % (auto) 6.7 %; Neutrophils # (auto) 7.79 K/uL (1.40-6.50); Neutrophils % (auto) 81.2 %; Platelet Count 195 K/uL (130-400); RDW Coefficient of Variation 14.1 % (11.5-14.5); RDW Standard Deviation 52.3 fL (36.4-46.3); Red Blood Count 4.18 M/uL (4.70-6.10)
[2023-04-09] MEDS: ACETYLCYSTEINE 600 MG CAP PO SCH (07:35)
[2023-04-09] MEDS: ASPIRIN 81 MG ECTAB PO SCH (07:35)
[2023-04-09] MEDS: PSYLLIUM or GUAR GUM FIBER POWDER PACKET PO SCH (07:35)
[2023-04-09] MEDS: allopurinoL 300 MG TAB PO SCH (07:35)
[2023-04-09] MEDS: EZETIMIBE 10 MG TABLET PO SCH (07:35)
[2023-04-09] MEDS: amLODIPine BESYLATE 5 MG TAB PO SCH ×2 (07:35→20:34)
[2023-04-09] MEDS: DULoxetine HCL 60 MG CAP PO SCH (07:35)
[2023-04-09] MEDS: FLUTICASONE FUROATE 100MCG 14 PUFFS/INHALER INH SCH (07:36)
[2023-04-09] MEDS: UMECLIDINIUM/VILANTEROL 62.5/25MCG 7 PUFFS/INHALER INH SCH (07:36)
[2023-04-09] MEDS: MULTIVITAMIN TAB PO SCH (07:36)
[2023-04-09] MEDS: CYANOCOBALAMIN (B-12) 500 MCG TABLET PO SCH (07:36)
[2023-04-09] MEDS: METOPROLOL SUCC 25MG EXT REL TAB PO SCH (07:36)
--- NOTE | 2023-04-09 12:55 | Hospitalist Progress Note ---
Date of Service April 09, 2023 Assessment & Plan (1) AMS (altered mental status): Plan: - Admitted to PCU - Stroke order set completed, no indication for thrombolytic - CT head reviewed and is negative - MRI brain wo contrast - Chronic and senescent change as above with no acute intracranial abnormality. - Cont baby aspirin - Neurology consulted - I suspect his episode of confusion was related to hypertensive urgency. I am aware that the episode occurred with an associated right facial droop. I believe this finding is related to his chronic left frontal infarct as identified on MRI and CT. Chronic infarcts may sometimes produce transient symptoms in the context of hypertensive urgency as well as other acute active medical comorbidities. Again, there is no evidence of acute or subacute infarct on his imaging and he does not have any evidence of significant vascular lesion on CT angiography. Patient should continue with daily low-dose aspirin and Zetia. He has a history of intolerance to statins. I think it would be reasonable to consider obtaining 30-day mobile cardiac outpatient telemetry. If he is found to have atrial fibrillation, would then need to consider starting Eliquis. Because he has not had any observed seizure activity, I do not think an EEG is necessary at this time. However, the chronic left frontal infarct, with associated encephalomalacia, extending to the cortex, does increase his risk for seizures. If he were to experience any potential seizure-like activity, would recommend EEG in that context. I do not think empiric treatment with an anticonvulsant is necessary at this time. - PT/OT consults placed - recommend rehab - Speech therapy eval (2) Hypertensive urgency: Plan: - SBP 175/110 at home during associated nausea, headache, confusion and difficulty getting dressed, improved status post IV labetalol given in the ER -Patient also became bradycardic into 30s (04/08/23) and concern for AV block, Mobitz type I. ECG obtained and cardiology consulted Telemetry on 04/08 demonstrated transient bradycardia with Mobitz type I heart block, blocked PAC Patient with known obstructive sleep apnea with CPAP per report Plan - reduce metoprolol succinate to 25 mg/day given transient bradycardia. I suspect in part due to hypoxia during sleep resume CPAP Treat hypertension with addition of amlodipine 2.5 mg twice daily Renal function at baseline, continue Aldactone as ordered. -Continue ASA 81 mg daily (3) CAD (coronary artery disease): (4) AAA (abdominal aortic aneurysm): (5) Hypertension: (6) HLD (hyperlipidemia): Plan: - Continue spironolactone MWF, pt is taking lasix prn-does not appear to be volume overloaded at this time, monitor - Continue baby aspirin - Checked lipid panel, LDL 70, continue Zetia 10 mg in the morning - Last a1c was 5.7, previously diabetic but manages with diet, not on any hyperglycemic medications (7) COPD (chronic obstructive pulmonary disease): Plan: - No acute exacerbation - May continue Trelegy - Patient appears to have saturations that have around 90 to 93% on room air, had 1 bout of 88%, CXR is negative Hx of ARIANA - oon CPAP (8) CKD (chronic kidney disease), stage III: Plan: - CR/BUN 40/1.62, baseline Cr appears to be ~ 1.5-1.9, hold lasix for now, monitor volume overload (9) ARIANA (obstructive sleep apnea): Plan: - Cont cpap HS DVT ppx: - teds, scds CODE: DNR/DNI Dispo: From home, likely to DC to rehab (10) Weakness: Admission and Anticipated Discharge Date Admission Date: April 07, 2023 Subjective Pt seen in follow up of confusion, HTN urgency, found to have transient bradycardia Currently laying in bed in NAD Pt reports feeling back to baseline Denies any new weakness Denies headache Speech is currently normal and no facial droop noted No cpap overnight - even though it was ordered - discussed this w/ RN at the bedside Did not work w/ PT yesterday d/t transient bradycardia - plan to work w/ PT today Review of Systems Review of Systems: All systems reviewed & are unremarkable except as noted in Subjective Physical Exam Physical Exam: General: WD/WN, elderly M in NAD Head: Normocephalic, atraumatic, no facial droop ENT: PERRL, EOMI,mucous membranes moist Chest: Clear to auscultation, no adventitious breath sounds Cardiac: Regular rate and rhythm, no murmur, no JVD Abdominal: NABS x 4 quadrants, soft, nondistended, nontender to palpation Extremities: Normal inspection, no peripheral edema or erythema, moves extremities Psych: Normal mood and affect Neuro: AAO x 3, speech is clear, no facial asymmetry, answers appropriately, moves extremities (+ some chronic LE weakness) Results & Data Results & Data Vital Signs (Past 12 Hours) Vital Signs Temp Pulse Pulse Resp BP BP Pulse Ox 04/09/23 12:21 95 04/09/23 11:17 36.3 C L 79 18 123/76 98 04/09/23 08:00 37 C 04/09/23 07:00 100 H 04/09/23 07:38 36.5 C 106 H 18 128/101 H 94 04/09/23 02:00 36.4 C L 86 24 158/114 H 91 O2 Del Method 04/09/23 12:21 04/09/23 11:17 Room Air 04/09/23 08:00 04/09/23 07:00 04/09/23 07:38 Room Air 04/09/23 02:00 Room Air Laboratory Results 04/09/23 04/09/23 04/09/23 Range/Units 11:21 07:25 06:14 WBC (4.8-10.8) K/ul RBC (4.70-6.10) M/uL Hgb (14.0-18.0) g/dl Hct (42.0-52.0) % MCV (80.0-100.0) fL MCH (25.0-34.0) pg MCHC (32.0-36.0) g/dL RDW Std Deviation (36.4-46.3) fL RDW Coeff of [place] (11.5-14.5) % Plt Count (130-400) K/uL MPV (9.4-12.4) fL Immature Gran % (Auto) % Neut % (Auto) % Lymph % (Auto) % [place] % (Auto) % Eos % (Auto) % Baso % (Auto) % Neut # (Auto) (1.40-6.50) K/uL Lymph # (Auto) (1.2-3.4) K/uL [place] # (Auto) (0.11-0.59) K/uL Eos # (Auto) (0-0.50) K/uL Baso # (Auto) (0-0.2) K/uL Immature Gran # (Auto) (0.01-0.20) K/uL Sodium 142 (136-145) mmol/L Potassium 4.3 (3.5-5.1) mmol/L Chloride 109 H (98-107) mmol/L Carbon Dioxide 26 (21-32) mmol/L Anion Gap 7 (3-11) BUN 44 H (6-23) mg/dl Creatinine 2.17 H (0.6-1.4) mg/dl Est Cr Clr Drug Dosing 29.1 ml/min Est GFR ( Amer) 31.5 ml/min Est GFR (Non-Af Amer) 27.2 ml/min BUN/Creatinine Ratio 20.3 H (10-20) Glucose 126 H (70-99(Fasting)) mg/dl POC Glucose 174 H 152 H (70-99) mg/dl Calcium 10.3 (8.6-10.3) mg/dl Phosphorus 2.8 (2.5-4.9) mg/dl Magnesium 2.0 (1.7-2.4) mg/dl 04/09/23 04/08/23 Range/Units 06:14 16:36 WBC 9.60 (4.8-10.8) K/ul RBC 4.18 L (4.70-6.10) M/uL Hgb 13.5 L (14.0-18.0) g/dl Hct 42.3 (42.0-52.0) % MCV 101.2 H (80.0-100.0) fL MCH 32.3 (25.0-34.0) pg MCHC 31.9 L (32.0-36.0) g/dL RDW Std Deviation 52.3 H (36.4-46.3) fL RDW Coeff of [place] 14.1 (11.5-14.5) % Plt Count 195 (130-400) K/uL MPV 9.5 (9.4-12.4) fL Immature Gran % (Auto) 1.0 % Neut % (Auto) 81.2 % Lymph % (Auto) 7.1 % [place] % (Auto) 6.7 % Eos % (Auto) 3.5 % Baso % (Auto) 0.5 % Neut # (Auto) 7.79 H (1.40-6.50) K/uL Lymph # (Auto) 0.68 L (1.2-3.4) K/uL [place] # (Auto) 0.64 H (0.11-0.59) K/uL Eos # (Auto) 0.34 (0-0.50) K/uL Baso # (Auto) 0.05 (0-0.2) K/uL Immature Gran # (Auto) 0.10 (0.01-0.20) K/uL Sodium (136-145) mmol/L Potassium (3.5-5.1) mmol/L Chloride (98-107) mmol/L Carbon Dioxide (21-32) mmol/L Anion Gap (3-11) BUN (6-23) mg/dl Creatinine (0.6-1.4) mg/dl Est Cr Clr Drug Dosing ml/min Est GFR ( Amer) ml/min Est GFR (Non-Af Amer) ml/min BUN/Creatinine Ratio (10-20) Glucose (70-99(Fasting)) mg/dl POC Glucose 144 H (70-99) mg/dl Calcium (8.6-10.3) mg/dl Phosphorus (2.5-4.9) mg/dl Magnesium (1.7-2.4) mg/dl Medications Administered Current Inpatient Medications Acetaminophen (Acetaminophen 325 Mg Tab) 650 mg PO Q4H PRN PRN Reason: Moderate Pain (Scale 4, 5, 6) Stop: 05/07/23 18:03 Last Admin: 04/07/23 19:30 Dose: 650 mg Acetylcysteine (Acetylcysteine 600 Mg Cap) 600 mg PO DAILY [facility] Stop: 05/08/23 08:59 Last Admin: 04/09/23 07:35 Dose: 600 mg Albuterol (Albuterol Hfa 8 Gm Inhaler) 2 puffs INH Q6R PRN PRN Reason: Shortness Of Breath Or Wheezin Stop: 05/07/23 18:03 Albuterol (Albut/Ipratrop 3mg/0.5mg Neb 3 Ml Vial) 3 ml INH Q6R PRN; Protocol PRN Reason: Shortness Of Breath Stop: 05/07/23 18:03 Allopurinol (Allopurinol 300 Mg Tab) 450 mg PO QAM [facility] Stop: 05/08/23 08:59 Last Admin: 04/09/23 07:35 Dose: 450 mg Amlodipine Besylate (Amlodipine Besylate 5 Mg Tab) 2.5 mg PO BID [facility] Stop: 05/08/23 20:59 Last Admin: 04/09/23 07:35 Dose: 2.5 mg Aspirin (Aspirin 81 Mg Ectab) 81 mg PO QAM [facility] Stop: 05/08/23 08:59 Last Admin: 04/09/23 07:35 Dose: 81 mg Calcium/Vitamin D (Calcium 600mg + Vit D 400 Iu Tab) 1 tab PO HS [facility] Stop: 05/07/23 20:59 Last Admin: 04/08/23 20:04 Dose: 1 tab Cyanocobalamin (Cyanocobalamin (B-12) 500 Mcg Tablet) 1,000 mcg PO QAM [facility] Stop: 05/08/23 08:59 Last Admin: 04/09/23 07:36 Dose: 1,000 mcg Dextrose (Dextrose 50% 50 Ml Syringe) 25 - 50 ml IV UD PRN; Protocol PRN Reason: Hypoglycemia Protocol Stop: 05/07/23 18:03 Docusate Sodium (Docusate Sodium 100 Mg Cap) 100 mg PO BID PRN PRN Reason: Constipation Stop: 05/07/23 18:03 Duloxetine HCl (Duloxetine Hcl 60 Mg Cap) [facility] [place] Stop: 05/08/23 08:59 Last Admin: 04/09/23 07:35 Dose: 60 mg Ezetimibe (Ezetimibe 10 Mg Tablet) [facility] [place] Stop: 05/08/23 08:59 Last Admin: 04/09/23 07:35 Dose: 10 mg Fluticasone Furoate (Fluticasone Furoate 100mcg 14 Puffs/Inhaler) 1 puffs INH DAILY [facility] Stop: 05/08/23 08:59 Last Admin: 04/09/23 07:36 Dose: 1 puffs Glucagon (Glucagon For Inj 1 Mg Vial) 1 mg SQ UD PRN; Protocol PRN Reason: Hypoglycemia Protocol Stop: 05/07/23 18:03 Glucose (Glucose 10 Tab/Tube) 4 - 8 tab PO UD PRN; Protocol PRN Reason: Hypoglycemia Treatment Stop: 05/07/23 18:03 Glucose (Glucose 40% Gel 15 Gm Tube) 15 - 30 gm PO UD PRN; Protocol PRN Reason: Hypoglycemia Protocol Stop: 05/07/23 18:03 Metoprolol Succinate (Metoprolol Succ 25mg Ext Rel Tab) 25 [facility] [place] Stop: 05/09/23 08:59 Last Admin: 04/09/23 07:36 Dose: 25 mg Miscellaneous (Carbohydrates For Hypoglycemia ) 15 - 30 gm PO UD PRN PRN Reason: Hypoglycemia Protocol Stop: 05/07/23 18:03 Multivitamins (Multivitamin Tab) 1 tab PO QAM [facility] Stop: 05/08/23 08:59 Last Admin: 04/09/23 07:36 Dose: 1 tab Ondansetron HCl (Ondansetron Inj 2 Mg/Ml 2 Ml Vial) 4 mg IV Q4H PRN PRN Reason: Nausea And Vomiting Stop: 05/07/23 18:03 Psyllium Hydrophilic Mucilloid (Psyllium Or Guar Gum Fiber Powder Packet) 1 pkt PO QAM [facility] Stop: 05/08/23 08:59 Last Admin: 04/09/23 07:35 Dose: 1 pkt Spironolactone (Spironolactone 12.5 Mg Tab) 12.5 mg PO MoWeFr@0900 [facility] Stop: 05/08/23 08:59 Last Admin: 04/08/23 07:41 Dose: 12.5 mg Umeclidinium/Vilanterol (Umeclidinium/Vilanterol 62.5/25mcg 7 Puffs/Inhaler) 1 puffs INH DAILY [facility] Stop: 05/08/23 08:59 Last Admin: 04/09/23 07:36 Dose: 1 puffs
--- NOTE | 2023-04-09 13:44 | Cardiology Progress Note ---
Date of Service April 09, 2023 Assessment & Plan (1) Hypertensive urgency: (2) Bradycardia: (3) CAD (coronary artery disease): (4) CKD (chronic kidney disease), stage III: Plan IMPRESSION: 82 year old medically complex male who presented due to altered mental status secondary to likely TIA- found to be hypertensive and hypoxic on exam. CTA/MRI of the head without acute findings. MRI revealed left frontal encephalomalacia consistent with remote infarct. Chronic lacunar infarct in the right cerebellar hemisphere. Carries a PMH of nonobstructive CAD, AAA, HTN, and CKD stage 4 Telemetry revealing episodes of sinus bradycardia with intermittent episodes of a Mobitz type 1 vs type 2 HB. Patient asymptomatic. -No additional bradycardia noted (04/09/2023). -Blood pressure still above goal yesterday and overnight last night in the 150s over 80s to 90s, improved on the most recent measurements with 128/101 and 123/76. PLAN: -Continue reduced dose metoprolol succinate to 25 mg daily. -Amlodipine 2.5 mg daily added on 04/08/2023. -Renal function at baseline, continue Aldactone as ordered. -Continue ASA 81 mg daily -Not on statin therapy due to history of intolerance, continue Zetia. -Consider nocturnal pulse ox study due to ongoing confusion- rule out nocturnal hypoxia. Admission and Anticipated Discharge Date Admission Date: April 07, 2023 Subjective Patient seen in cardiology follow-up. He is aware of his surroundings, noting that he is admitted to the hospital. He is aware that we are titrating his medications with regards to his blood pressure. Telemetry reveals sinus rhythm and sinus tachycardia. Several different P wave morphologies noted at times consistent with wandering atrial pacemaker and multifocal atrial tachycardia. No atrial fibrillation. Physical Exam Constitutional: WD/WN, vitals as above no acute distress Neck: normal visual inspection and trachea midline Respiratory: Auscultation: + rales and + wheezes; no rhonchi Cardiovascular: Rate/Rhythm: regular rate and regular rhythm Heart Sounds: normal S1 and normal S2; no murmur (distant heart sounds) Vessels: no JVD Extremities: + edema (Trace bilateral lower extremity edema) Gastrointestinal (Abdomen): normal bowel sounds, soft, nontender, no hepatosplenomegaly Neurologic: PERRL, EOMI, accommodation nl, no face palsy, no dysarthria Psychiatric: A+Ox3, euthymic affect Results & Data Vital Signs (Past 12 Hours) Vital Signs Temp Pulse Pulse Resp BP BP Pulse Ox 04/09/23 12:21 95 04/09/23 11:17 36.3 C L 79 18 123/76 98 04/09/23 08:00 37 C 04/09/23 07:00 100 H 04/09/23 07:38 36.5 C 106 H 18 128/101 H 94 04/09/23 02:00 36.4 C L 86 24 158/114 H 91 O2 Del Method 04/09/23 12:21 04/09/23 11:17 Room Air 04/09/23 08:00 04/09/23 07:00 04/09/23 07:38 Room Air 04/09/23 02:00 Room Air Laboratory Results CBC 04/09/23 Range/Units 06:14 WBC 9.60 (4.8-10.8) K/ul RBC 4.18 L (4.70-6.10) M/uL Hgb 13.5 L (14.0-18.0) g/dl Hct 42.3 (42.0-52.0) % Plt Count 195 (130-400) K/uL Neut # (Auto) 7.79 H (1.40-6.50) K/uL Lymph # (Auto) 0.68 L (1.2-3.4) K/uL [place] # (Auto) 0.64 H (0.11-0.59) K/uL Eos # (Auto) 0.34 (0-0.50) K/uL Baso # (Auto) 0.05 (0-0.2) K/uL Comprehensive Metabolic Panel 04/09/23 Range/Units 06:14 Sodium 142 (136-145) mmol/L Potassium 4.3 (3.5-5.1) mmol/L Chloride 109 H (98-107) mmol/L Carbon Dioxide 26 (21-32) mmol/L BUN 44 H (6-23) mg/dl Creatinine 2.17 H (0.6-1.4) mg/dl Glucose 126 H (70-99(Fasting)) mg/dl Calcium 10.3 (8.6-10.3) mg/dl Intake and Output 04/08/23 04/09/23 04/09/23 22:59 06:59 14:59 Intake Total 350 / 350 Output Total 200 / 877 275 / 877 Balance 150 / -527 -275 / -527 Intake: Oral 350 / 350 Output: Urine 200 / 875 275 / 875 Other: Other Intake Source Sips # Unmeasured Voids 0 Weight 90.1 kg Weight Measurement Method Built in [facility]
[2023-04-09] MEDS: CALCIUM 600MG + VIT D 400 IU TAB PO SCH (20:33)
[2023-04-10 06:39] LABS: Calcium 10.6 mg/dl (8.6-10.3); Creatinine Clr Calc Pharmacy 32.2 ml/min; Est GFR (African American) 35.6 ml/min; Est GFR (Non-African American) 30.7 ml/min; Potassium 4.2 mmol/L (3.5-5.1)
[2023-04-10 06:43] LABS: Basophils # (auto) 0.05 K/uL (0-0.2); Basophils % (auto) 0.6 %; Eosinophils # (auto) 0.31 K/uL (0-0.50); Eosinophils % (auto) 3.4 %; Hematocrit (blood only) 43.7 % (42.0-52.0); Hemoglobin 14.2 g/dl (14.0-18.0); Immature Granulocytes # (auto) 0.11 K/uL (0.01-0.20); Immature Granulocytes % (auto) 1.2 %; Lymphocytes # (auto) 0.82 K/uL (1.2-3.4); Lymphocytes % (auto) 9.1 %; Mean Corpuscular Hemoglobin 32.8 pg (25.0-34.0); Mean Corpuscular Hgb Conc 32.5 g/dL (32.0-36.0); Mean Corpuscular Volume 100.9 fL (80.0-100.0); Monocytes % (auto) 6.7 %; Neutrophils # (auto) 7.11 K/uL (1.40-6.50); Platelet Count 192 K/uL (130-400); RDW Standard Deviation 51.6 fL (36.4-46.3); Red Blood Count 4.33 M/uL (4.70-6.10)
[2023-04-10] MEDS: amLODIPine BESYLATE 5 MG TAB PO SCH ×2 (09:19→20:07)
[2023-04-10] MEDS: CYANOCOBALAMIN (B-12) 500 MCG TABLET PO SCH (09:19)
[2023-04-10] MEDS: EZETIMIBE 10 MG TABLET PO SCH (09:20)
[2023-04-10] MEDS: allopurinoL 300 MG TAB PO SCH (09:20)
[2023-04-10] MEDS: ACETYLCYSTEINE 600 MG CAP PO SCH (09:20)
[2023-04-10] MEDS: METOPROLOL SUCC 25MG EXT REL TAB PO SCH (09:20)
[2023-04-10] MEDS: PSYLLIUM or GUAR GUM FIBER POWDER PACKET PO SCH (09:20)
[2023-04-10] MEDS: DULoxetine HCL 60 MG CAP PO SCH (09:20)
[2023-04-10] MEDS: FLUTICASONE FUROATE 100MCG 14 PUFFS/INHALER INH SCH (09:20)
[2023-04-10] MEDS: MULTIVITAMIN TAB PO SCH (09:20)
[2023-04-10] MEDS: ASPIRIN 81 MG ECTAB PO SCH (09:20)
[2023-04-10] MEDS: UMECLIDINIUM/VILANTEROL 62.5/25MCG 7 PUFFS/INHALER INH SCH (09:21)
--- NOTE | 2023-04-10 10:23 | Hospitalist Progress Note ---
Date of Service April 10, 2023 Assessment & Plan (1) AMS (altered mental status): Plan: - Admitted to PCU - Stroke order set completed, no indication for thrombolytic - CT head reviewed and is negative - MRI brain wo contrast - Chronic and senescent change as above with no acute intracranial abnormality. - Cont baby aspirin - Neurology consulted - I suspect his episode of confusion was related to hypertensive urgency. I am aware that the episode occurred with an associated right facial droop. I believe this finding is related to his chronic left frontal infarct as identified on MRI and CT. Chronic infarcts may sometimes produce transient symptoms in the context of hypertensive urgency as well as other acute active medical comorbidities. Again, there is no evidence of acute or subacute infarct on his imaging and he does not have any evidence of significant vascular lesion on CT angiography. Patient should continue with daily low-dose aspirin and Zetia. He has a history of intolerance to statins. I think it would be reasonable to consider obtaining 30-day mobile cardiac outpatient telemetry. If he is found to have atrial fibrillation, would then need to consider starting Eliquis. Because he has not had any observed seizure activity, I do not think an EEG is necessary at this time. However, the chronic left frontal infarct, with associated encephalomalacia, extending to the cortex, does increase his risk for seizures. If he were to experience any potential seizure-like activity, would recommend EEG in that context. I do not think empiric treatment with an anticonvulsant is necessary at this time. - PT/OT consults placed - recommend rehab - Speech therapy eval (2) Hypertensive urgency: Plan: - SBP 175/110 at home during associated nausea, headache, confusion and difficulty getting dressed, improved status post IV labetalol given in the ER -Patient also became bradycardic into 30s (04/08/23) and concern for AV block, Mobitz type I. ECG obtained and cardiology consulted Telemetry on 04/08 demonstrated transient bradycardia with Mobitz type I heart block, blocked PAC Patient with known obstructive sleep apnea with CPAP per report Plan - reduce metoprolol succinate to 25 mg/day given transient bradycardia. I suspect in part due to hypoxia during sleep resume CPAP Treat hypertension with addition of amlodipine 2.5 mg twice daily Renal function at baseline, continue Aldactone as ordered. -Continue ASA 81 mg daily 04/09 No additional bradycardia noted (04/09/2023). (3) CAD (coronary artery disease): (4) AAA (abdominal aortic aneurysm): (5) Hypertension: (6) HLD (hyperlipidemia): Plan: - Continue spironolactone MWF, pt is taking lasix prn-does not appear to be volume overloaded at this time, monitor - Continue baby aspirin - Checked lipid panel, LDL 70, continue Zetia 10 mg in the morning - Last a1c was 5.7, previously diabetic but manages with diet, not on any hyperglycemic medications (7) COPD (chronic obstructive pulmonary disease): Plan: - No acute exacerbation - May continue Trelegy - Patient appears to have saturations that have around 90 to 93% on room air, had 1 bout of 88%, CXR is negative Hx of ARIANA - oon CPAP (8) CKD (chronic kidney disease), stage III: Plan: - CR/BUN 40/1.62, baseline Cr appears to be ~ 1.5-1.9, hold lasix prn for now, monitor volume overload (9) ARIANA (obstructive sleep apnea): Plan: - Cont cpap HS DVT ppx: - teds, scds CODE: DNR/DNI Dispo: From home, likely to DC to rehab (10) Weakness: Admission and Anticipated Discharge Date Admission Date: April 07, 2023 Subjective Pt seen in follow up of confusion, HTN urgency, found to have transient bradycardia Currently sitting up in chair in NAD Pt reports feeling back to baseline, had a good night. Used his cpap Denies any new weakness Denies headache Speech is currently normal and no facial droop noted Denies any chest pain, shortness of breath or palpitations. Patient's and son present at the bedside and updated. Review of Systems Review of Systems: All systems reviewed & are unremarkable except as noted in Subjective Physical Exam Physical Exam: General: WD/WN, elderly M in NAD Head: Normocephalic, atraumatic, no facial droop ENT: PERRL, EOMI,mucous membranes moist Chest: Clear to auscultation, no adventitious breath sounds Cardiac: Regular rate and rhythm, no murmur, no JVD Abdominal: NABS x 4 quadrants, soft, nondistended, nontender to palpation Extremities: Normal inspection, no peripheral edema or erythema, moves extremities Psych: Normal mood and affect Neuro: AAO x 3, speech is clear, no facial asymmetry, answers appropriately, moves extremities (+ some chronic LE weakness) Results & Data Results & Data Vital Signs (Past 12 Hours) Vital Signs Temp Pulse Pulse Resp BP Pulse Ox O2 Del Method 04/10/23 07:49 36.4 C L 95 H 18 168/91 H 92 Room Air 04/10/23 07:00 89 04/10/23 03:55 36.4 C L 90 18 146/94 H 93 CPAP 04/09/23 23:29 88 04/09/23 22:31 CPAP 04/09/23 22:25 36.6 C 106 H 20 151/98 H 94 Room Air Laboratory Results 04/10/23 04/10/23 04/10/23 Range/Units 07:17 06:13 06:13 WBC 9.00 (4.8-10.8) K/ul RBC 4.33 L (4.70-6.10) M/uL Hgb 14.2 (14.0-18.0) g/dl Hct 43.7 (42.0-52.0) % MCV 100.9 H (80.0-100.0) fL MCH 32.8 (25.0-34.0) pg MCHC 32.5 (32.0-36.0) g/dL RDW Std Deviation 51.6 H (36.4-46.3) fL RDW Coeff of [place] 14.0 (11.5-14.5) % Plt Count 192 (130-400) K/uL MPV 10.0 (9.4-12.4) fL Immature Gran % (Auto) 1.2 % Neut % (Auto) 79.0 % Lymph % (Auto) 9.1 % [place] % (Auto) 6.7 % Eos % (Auto) 3.4 % Baso % (Auto) 0.6 % Neut # (Auto) 7.11 H (1.40-6.50) K/uL Lymph # (Auto) 0.82 L (1.2-3.4) K/uL [place] # (Auto) 0.60 H (0.11-0.59) K/uL Eos # (Auto) 0.31 (0-0.50) K/uL Baso # (Auto) 0.05 (0-0.2) K/uL Immature Gran # (Auto) 0.11 (0.01-0.20) K/uL Sodium 143 (136-145) mmol/L Potassium 4.2 (3.5-5.1) mmol/L Chloride 108 H (98-107) mmol/L Carbon Dioxide 26 (21-32) mmol/L Anion Gap 9 (3-11) BUN 47 H (6-23) mg/dl Creatinine 1.96 H (0.6-1.4) mg/dl Est Cr Clr Drug Dosing 32.2 ml/min Est GFR ( Amer) 35.6 ml/min Est GFR (Non-Af Amer) 30.7 ml/min BUN/Creatinine Ratio 24.0 H (10-20) Glucose 128 H (70-99(Fasting)) mg/dl POC Glucose 108 H (70-99) mg/dl Calcium 10.6 H (8.6-10.3) mg/dl Phosphorus 3.0 (2.5-4.9) mg/dl Magnesium 2.0 (1.7-2.4) mg/dl 04/09/23 04/09/23 04/09/23 Range/Units 20:14 16:27 11:21 WBC (4.8-10.8) K/ul RBC (4.70-6.10) M/uL Hgb (14.0-18.0) g/dl Hct (42.0-52.0) % MCV (80.0-100.0) fL MCH (25.0-34.0) pg MCHC (32.0-36.0) g/dL RDW Std Deviation (36.4-46.3) fL RDW Coeff of [place] (11.5-14.5) % Plt Count (130-400) K/uL MPV (9.4-12.4) fL Immature Gran % (Auto) % Neut % (Auto) % Lymph % (Auto) % [place] % (Auto) % Eos % (Auto) % Baso % (Auto) % Neut # (Auto) (1.40-6.50) K/uL Lymph # (Auto) (1.2-3.4) K/uL [place] # (Auto) (0.11-0.59) K/uL Eos # (Auto) (0-0.50) K/uL Baso # (Auto) (0-0.2) K/uL Immature Gran # (Auto) (0.01-0.20) K/uL Sodium (136-145) mmol/L Potassium (3.5-5.1) mmol/L Chloride (98-107) mmol/L Carbon Dioxide (21-32) mmol/L Anion Gap (3-11) BUN (6-23) mg/dl Creatinine (0.6-1.4) mg/dl Est Cr Clr Drug Dosing ml/min Est GFR ( Amer) ml/min Est GFR (Non-Af Amer) ml/min BUN/Creatinine Ratio (10-20) Glucose (70-99(Fasting)) mg/dl POC Glucose 196 H 198 H 174 H (70-99) mg/dl Calcium (8.6-10.3) mg/dl Phosphorus (2.5-4.9) mg/dl Magnesium (1.7-2.4) mg/dl Medications Administered Current Inpatient Medications Acetaminophen (Acetaminophen 325 Mg Tab) 650 mg PO Q4H PRN PRN Reason: Moderate Pain (Scale 4, 5, 6) Stop: 05/07/23 18:03 Last Admin: 04/07/23 19:30 Dose: 650 mg Acetylcysteine (Acetylcysteine 600 Mg Cap) 600 mg PO DAILY [facility] Stop: 05/08/23 08:59 Last Admin: 04/10/23 09:20 Dose: 600 mg Albuterol (Albuterol Hfa 8 Gm Inhaler) 2 puffs INH Q6R PRN PRN Reason: Shortness Of Breath Or Wheezin Stop: 05/07/23 18:03 Albuterol (Albut/Ipratrop 3mg/0.5mg Neb 3 Ml Vial) 3 ml INH Q6R PRN; Protocol PRN Reason: Shortness Of Breath Stop: 05/07/23 18:03 Allopurinol (Allopurinol 300 Mg Tab) 450 mg PO QAM [facility] Stop: 05/08/23 08:59 Last Admin: 04/10/23 09:20 Dose: 450 mg Amlodipine Besylate (Amlodipine Besylate 5 Mg Tab) 2.5 mg PO BID [facility] Stop: 05/08/23 20:59 Last Admin: 04/10/23 09:19 Dose: 2.5 mg Aspirin (Aspirin 81 Mg Ectab) 81 mg PO QAM [facility] Stop: 05/08/23 08:59 Last Admin: 04/10/23 09:20 Dose: 81 mg Calcium/Vitamin D (Calcium 600mg + Vit D 400 Iu Tab) 1 tab PO HS [facility] Stop: 05/07/23 20:59 Last Admin: 04/09/23 20:33 Dose: 1 tab Cyanocobalamin (Cyanocobalamin (B-12) 500 Mcg Tablet) 1,000 mcg PO QAM [facility] Stop: 05/08/23 08:59 Last Admin: 04/10/23 09:19 Dose: 1,000 mcg Dextrose (Dextrose 50% 50 Ml Syringe) 25 - 50 ml IV UD PRN; Protocol PRN Reason: Hypoglycemia Protocol Stop: 05/07/23 18:03 Docusate Sodium (Docusate Sodium 100 Mg Cap) 100 mg PO BID PRN PRN Reason: Constipation Stop: 05/07/23 18:03 Duloxetine HCl (Duloxetine Hcl 60 Mg Cap) 60 mg PO QAM [facility] Stop: 05/08/23 08:59 Last Admin: 04/10/23 09:20 Dose: 60 mg Ezetimibe (Ezetimibe 10 Mg Tablet) 10 mg PO QAM [facility] Stop: 05/08/23 08:59 Last Admin: 04/10/23 09:20 Dose: 10 mg Fluticasone Furoate (Fluticasone Furoate 100mcg 14 Puffs/Inhaler) 1 puffs INH DAILY [facility] Stop: 05/08/23 08:59 Last Admin: 04/10/23 09:20 Dose: 1 puffs Glucagon (Glucagon For Inj 1 Mg Vial) 1 mg SQ UD PRN; Protocol PRN Reason: Hypoglycemia Protocol Stop: 05/07/23 18:03 Glucose (Glucose 10 Tab/Tube) 4 - 8 tab PO UD PRN; Protocol PRN Reason: Hypoglycemia Treatment Stop: 05/07/23 18:03 Glucose (Glucose 40% Gel 15 Gm Tube) 15 - 30 gm PO UD PRN; Protocol PRN Reason: Hypoglycemia Protocol Stop: 05/07/23 18:03 Metoprolol Succinate (Metoprolol Succ 25mg Ext Rel Tab) 25 mg PO QAM [facility] Stop: 05/09/23 08:59 Last Admin: 04/10/23 09:20 Dose: 25 mg Miscellaneous (Carbohydrates For Hypoglycemia ) 15 - 30 gm PO UD PRN PRN Reason: Hypoglycemia Protocol Stop: 05/07/23 18:03 Multivitamins (Multivitamin Tab) 1 tab PO QAM [facility] Stop: 05/08/23 08:59 Last Admin: 04/10/23 09:20 Dose: 1 tab Ondansetron HCl (Ondansetron Inj 2 Mg/Ml 2 Ml Vial) 4 mg IV Q4H PRN PRN Reason: Nausea And Vomiting Stop: 05/07/23 18:03 Psyllium Hydrophilic Mucilloid (Psyllium Or Guar Gum Fiber Powder Packet) 1 pkt PO QAM [facility] Stop: 05/08/23 08:59 Last Admin: 04/10/23 09:20 Dose: 1 pkt Spironolactone (Spironolactone 12.5 Mg Tab) 12.5 mg PO MoWeFr@0900 [facility] Stop: 05/08/23 08:59 Last Admin: 04/08/23 07:41 Dose: 12.5 mg Umeclidinium/Vilanterol (Umeclidinium/Vilanterol 62.5/25mcg 7 Puffs/Inhaler) 1 puffs INH DAILY [facility] Stop: 05/08/23 08:59 Last Admin: 04/10/23 09:21 Dose: 1 puffs
--- NOTE | 2023-04-10 16:33 | Cardiology Progress Note ---
Date of Service April 10, 2023 Assessment & Plan (1) Hypertensive urgency: (2) Bradycardia: (3) CAD (coronary artery disease): (4) CKD (chronic kidney disease), stage III: Plan IMPRESSION: 82 year old medically complex male who presented due to altered mental status secondary to likely TIA- found to be hypertensive and hypoxic on exam. CTA/MRI of the head without acute findings. MRI revealed left frontal encephalomalacia consistent with remote infarct. Chronic lacunar infarct in the right cerebellar hemisphere. Carries a PMH of nonobstructive CAD, AAA, HTN, and CKD stage 4 Telemetry revealing episodes of sinus bradycardia with intermittent episodes of a Mobitz type 1 vs type 2 HB. Patient asymptomatic. -No additional bradycardia noted 04/09/2023 or 04/10/2023 PLAN: -Continue reduced dose metoprolol succinate to 25 mg daily. -Amlodipine 2.5 mg twice daily added on 04/08/2023. -Renal function at baseline, continue Aldactone as ordered. -Continue ASA 81 mg daily -Not on statin therapy due to history of intolerance, continue Zetia. -Continue treatment at home CPAP machine Admission and Anticipated Discharge Date Admission Date: April 07, 2023 Subjective Patient seen in follow-up today. His spouse brought in his home CPAP machine which he utilized overnight last night. Blood pressure under better control. Physical Exam Constitutional: WD/WN, vitals as above no acute distress Neck: normal visual inspection and trachea midline Respiratory: Auscultation: + rales and + wheezes; no rhonchi Cardiovascular: Rate/Rhythm: regular rate and regular rhythm Heart Sounds: normal S1 and normal S2; no murmur (distant heart sounds) Vessels: no JVD Extremities: + edema (Trace bilateral lower extremity edema) Gastrointestinal (Abdomen): normal bowel sounds, soft, nontender, no hepatosplenomegaly Neurologic: PERRL, EOMI, accommodation nl, no face palsy, no dysarthria Psychiatric: A+Ox3, euthymic affect Results & Data Vital Signs (Past 12 Hours) Vital Signs Temp Pulse Pulse Resp BP BP Pulse Ox 04/10/23 15:48 36.8 C 86 18 132/76 92 04/10/23 11:39 36.4 C L 100 H 18 139/83 97 04/10/23 08:00 37 C 04/10/23 07:49 36.4 C L 95 H 18 168/91 H 92 04/10/23 07:00 89 O2 Del Method 04/10/23 15:48 Room Air 04/10/23 11:39 Room Air 04/10/23 08:00 04/10/23 07:49 Room Air 04/10/23 07:00 Laboratory Results CBC 04/10/23 Range/Units 06:13 WBC 9.00 (4.8-10.8) K/ul RBC 4.33 L (4.70-6.10) M/uL Hgb 14.2 (14.0-18.0) g/dl Hct 43.7 (42.0-52.0) % Plt Count 192 (130-400) K/uL Neut # (Auto) 7.11 H (1.40-6.50) K/uL Lymph # (Auto) 0.82 L (1.2-3.4) K/uL [place] # (Auto) 0.60 H (0.11-0.59) K/uL Eos # (Auto) 0.31 (0-0.50) K/uL Baso # (Auto) 0.05 (0-0.2) K/uL Comprehensive Metabolic Panel 04/10/23 Range/Units 06:13 Sodium 143 (136-145) mmol/L Potassium 4.2 (3.5-5.1) mmol/L Chloride 108 H (98-107) mmol/L Carbon Dioxide 26 (21-32) mmol/L BUN 47 H (6-23) mg/dl Creatinine 1.96 H (0.6-1.4) mg/dl Glucose 128 H (70-99(Fasting)) mg/dl Calcium 10.6 H (8.6-10.3) mg/dl
[2023-04-10] MEDS: CALCIUM 600MG + VIT D 400 IU TAB PO SCH (20:07)
[2023-04-11 06:50] LABS: BUN Creatinine Ratio 21.7 (10-20); Calcium 10.4 mg/dl (8.6-10.3); Creatinine Clr Calc Pharmacy 24.5 ml/min; Est GFR (African American) 25.5 ml/min; Potassium 4.6 mmol/L (3.5-5.1)
[2023-04-11] MEDS: amLODIPine BESYLATE 5 MG TAB PO SCH ×2 (08:16→20:30)
[2023-04-11] MEDS: CYANOCOBALAMIN (B-12) 500 MCG TABLET PO SCH (08:16)
[2023-04-11] MEDS: DULoxetine HCL 60 MG CAP PO SCH (08:17)
[2023-04-11] MEDS: MULTIVITAMIN TAB PO SCH (08:17)
[2023-04-11] MEDS: EZETIMIBE 10 MG TABLET PO SCH (08:17)
[2023-04-11] MEDS: SPIRONOLACTONE 12.5 MG TAB PO SCH (08:18)
[2023-04-11] MEDS: METOPROLOL SUCC 25MG EXT REL TAB PO SCH (08:18)
[2023-04-11] MEDS: PSYLLIUM or GUAR GUM FIBER POWDER PACKET PO SCH (08:19)
[2023-04-11] MEDS: allopurinoL 300 MG TAB PO SCH (08:19)
[2023-04-11] MEDS: ASPIRIN 81 MG ECTAB PO SCH (08:19)
[2023-04-11] MEDS: ACETYLCYSTEINE 600 MG CAP PO SCH (08:20)
[2023-04-11] MEDS: FLUTICASONE FUROATE 100MCG 14 PUFFS/INHALER INH SCH (08:22)
[2023-04-11] MEDS: UMECLIDINIUM/VILANTEROL 62.5/25MCG 7 PUFFS/INHALER INH SCH (08:22)
--- NOTE | 2023-04-11 09:02 | Hospitalist Progress Note ---
Date of Service April 11, 2023 Assessment & Plan (1) AMS (altered mental status): Plan: - Admitted to PCU - Stroke order set completed, no indication for thrombolytic - CT head reviewed and is negative - MRI brain wo contrast - Chronic and senescent change as above with no acute intracranial abnormality. - Cont baby aspirin - Neurology consulted - I suspect his episode of confusion was related to hypertensive urgency. I am aware that the episode occurred with an associated right facial droop. I believe this finding is related to his chronic left frontal infarct as identified on MRI and CT. Chronic infarcts may sometimes produce transient symptoms in the context of hypertensive urgency as well as other acute active medical comorbidities. Again, there is no evidence of acute or subacute infarct on his imaging and he does not have any evidence of significant vascular lesion on CT angiography. Patient should continue with daily low-dose aspirin and Zetia. He has a history of intolerance to statins. I think it would be reasonable to consider obtaining 30-day mobile cardiac outpatient telemetry. If he is found to have atrial fibrillation, would then need to consider starting Eliquis. Because he has not had any observed seizure activity, I do not think an EEG is necessary at this time. However, the chronic left frontal infarct, with associated encephalomalacia, extending to the cortex, does increase his risk for seizures. If he were to experience any potential seizure-like activity, would recommend EEG in that context. I do not think empiric treatment with an anticonvulsant is necessary at this time. - PT/OT consults placed - recommend rehab - Speech therapy eval (2) Hypertensive urgency: Plan: - SBP 175/110 at home during associated nausea, headache, confusion and difficulty getting dressed, improved status post IV labetalol given in the ER -Patient also became bradycardic into 30s (04/08/23) and concern for AV block, Mobitz type I. ECG obtained and cardiology consulted Telemetry on 04/08 demonstrated transient bradycardia with Mobitz type I heart block, blocked PAC Patient with known obstructive sleep apnea with CPAP per report Plan - reduced metoprolol succinate to 25 mg/day given transient bradycardia. I suspect in part due to hypoxia during sleep resumed CPAP Treat hypertension with addition of amlodipine 2.5 mg twice daily Renal function at baseline, continue Aldactone as ordered. -Continue ASA 81 mg daily 04/09 No additional bradycardia noted (04/09/2023). (3) CAD (coronary artery disease): (4) AAA (abdominal aortic aneurysm): (5) Hypertension: (6) HLD (hyperlipidemia): Plan: - Continue spironolactone MWF, pt is taking lasix prn-does not appear to be volume overloaded at this time, monitor - Continue baby aspirin - Checked lipid panel, LDL 70, continue Zetia 10 mg in the morning - Last a1c was 5.7, previously diabetic but manages with diet, not on any hyperglycemic medications (7) COPD (chronic obstructive pulmonary disease): Plan: - No acute exacerbation - May continue Trelegy - Patient appears to have saturations that have around 90 to 93% on room air, had 1 bout of 88%, CXR is negative Hx of ARIANA - oon CPAP (8) CKD (chronic kidney disease), stage III: Plan: - CR/BUN 40/1.62, baseline Cr appears to be ~ 1.5-1.9, hold lasix prn for now, monitor volume overload (9) ARIANA (obstructive sleep apnea): Plan: - Cont cpap HS DVT ppx: - teds, scds CODE: DNR/DNI Dispo: From home, likely to DC to rehab (10) Weakness: Admission and Anticipated Discharge Date Admission Date: April 07, 2023 Subjective Pt seen in follow up of confusion, HTN urgency, found to have transient bradycardia Currently sitting up in chair in NAD Pt feels well and has no medical concerns. says he did not use cpap overnight as he was upset w/ nursing staff - reportedly he was not allowed to walk to the bathroom at night and was asked to use urinal. Will address w/ nursing staff. Denies any new weakness Denies headache Speech is currently normal and no facial droop noted Denies any chest pain, shortness of breath or palpitations. Will update PT eval - awaiting dc to rehab Review of Systems Review of Systems: All systems reviewed & are unremarkable except as noted in Subjective Physical Exam Physical Exam: General: WD/WN, elderly M in NAD Head: Normocephalic, atraumatic, no facial droop ENT: PERRL, EOMI,mucous membranes moist Chest: Clear to auscultation, no adventitious breath sounds Cardiac: Regular rate and rhythm, no murmur, no JVD Abdominal: NABS x 4 quadrants, soft, nondistended, nontender to palpation Extremities: Normal inspection, no peripheral edema or erythema, moves extremities Psych: Normal mood and affect Neuro: AAO x 3, speech is clear, no facial asymmetry, answers appropriately, moves extremities (+ some chronic LE weakness) Results & Data Results & Data Vital Signs (Past 12 Hours) Vital Signs Temp Pulse Pulse Resp BP Pulse Ox O2 Del Method 04/11/23 07:24 36.3 C L 99 H 18 165/88 H 94 Room Air 04/11/23 04:00 92 H 18 Room Air 04/10/23 23:11 36.8 C 68 18 111/75 93 Room Air 04/10/23 23:08 89 Laboratory Results 04/11/23 04/11/23 04/10/23 Range/Units 07:14 06:10 20:09 Sodium 143 (136-145) mmol/L Potassium 4.6 (3.5-5.1) mmol/L Chloride 109 H (98-107) mmol/L Carbon Dioxide 29 (21-32) mmol/L Anion Gap 5 (3-11) BUN 56 H (6-23) mg/dl Creatinine 2.58 H D (0.6-1.4) mg/dl Est Cr Clr Drug Dosing 24.5 ml/min Est GFR ( Amer) 25.5 ml/min Est GFR (Non-Af Amer) 22.0 ml/min BUN/Creatinine Ratio 21.7 H (10-20) Glucose 131 H (70-99(Fasting)) mg/dl POC Glucose 123 H 190 H (70-99) mg/dl Calcium 10.4 H (8.6-10.3) mg/dl 04/10/23 04/10/23 04/10/23 Range/Units 16:27 11:24 11:24 Sodium (136-145) mmol/L Potassium (3.5-5.1) mmol/L Chloride (98-107) mmol/L Carbon Dioxide (21-32) mmol/L Anion Gap (3-11) BUN (6-23) mg/dl Creatinine (0.6-1.4) mg/dl Est Cr Clr Drug Dosing ml/min Est GFR ( Amer) ml/min Est GFR (Non-Af Amer) ml/min BUN/Creatinine Ratio (10-20) Glucose (70-99(Fasting)) mg/dl POC Glucose 124 H 223 H 386 H* (70-99) mg/dl Calcium (8.6-10.3) mg/dl Medications Administered Current Inpatient Medications Acetaminophen (Acetaminophen 325 Mg Tab) 650 mg PO Q4H PRN PRN Reason: Moderate Pain (Scale 4, 5, 6) Stop: 05/07/23 18:03 Last Admin: 04/07/23 19:30 Dose: 650 mg Acetylcysteine (Acetylcysteine 600 Mg Cap) 600 mg PO DAILY [facility] Stop: 05/08/23 08:59 Last Admin: 04/11/23 08:20 Dose: 600 mg Albuterol (Albuterol Hfa 8 Gm Inhaler) 2 puffs INH Q6R PRN PRN Reason: Shortness Of Breath Or Wheezin Stop: 05/07/23 18:03 Albuterol (Albut/Ipratrop 3mg/0.5mg Neb 3 Ml Vial) 3 ml INH Q6R PRN; Protocol PRN Reason: Shortness Of Breath Stop: 05/07/23 18:03 Allopurinol (Allopurinol 300 Mg Tab) [facility] [place] Stop: 05/08/23 08:59 Last Admin: 04/11/23 08:19 Dose: 450 mg Amlodipine Besylate (Amlodipine Besylate 5 Mg Tab) 2.5 mg PO BID [facility] Stop: 05/08/23 20:59 Last Admin: 04/11/23 08:16 Dose: 2.5 mg Aspirin (Aspirin 81 Mg Ectab) 81 [facility] [place] Stop: 05/08/23 08:59 Last Admin: 04/11/23 08:19 Dose: 81 mg Calcium/Vitamin D (Calcium 600mg + Vit D 400 Iu Tab) 1 tab PO HS [facility] Stop: 05/07/23 20:59 Last Admin: 04/10/23 20:07 Dose: 1 tab Cyanocobalamin (Cyanocobalamin (B-12) 500 Mcg Tablet) 1,000 mcg PO QAM [facility] Stop: 05/08/23 08:59 Last Admin: 04/11/23 08:16 Dose: 1,000 mcg Dextrose (Dextrose 50% 50 Ml Syringe) 25 - 50 ml IV UD PRN; Protocol PRN Reason: Hypoglycemia Protocol Stop: 05/07/23 18:03 Docusate Sodium (Docusate Sodium 100 Mg Cap) 100 mg PO BID PRN PRN Reason: Constipation Stop: 05/07/23 18:03 Duloxetine HCl (Duloxetine Hcl 60 Mg Cap) 60 mg PO QAM [facility] Stop: 05/08/23 08:59 Last Admin: 04/11/23 08:17 Dose: 60 mg Ezetimibe (Ezetimibe 10 Mg Tablet) 10 mg PO QAM [facility] Stop: 05/08/23 08:59 Last Admin: 04/11/23 08:17 Dose: 10 mg Fluticasone Furoate (Fluticasone Furoate 100mcg 14 Puffs/Inhaler) 1 puffs INH DAILY [facility] Stop: 05/08/23 08:59 Last Admin: 04/11/23 08:22 Dose: 1 puffs Glucagon (Glucagon For Inj 1 Mg Vial) 1 mg SQ UD PRN; Protocol PRN Reason: Hypoglycemia Protocol Stop: 05/07/23 18:03 Glucose (Glucose 10 Tab/Tube) 4 - 8 tab PO UD PRN; Protocol PRN Reason: Hypoglycemia Treatment Stop: 05/07/23 18:03 Glucose (Glucose 40% Gel 15 Gm Tube) 15 - 30 gm PO UD PRN; Protocol PRN Reason: Hypoglycemia Protocol Stop: 05/07/23 18:03 Metoprolol Succinate (Metoprolol Succ 25mg Ext Rel Tab) [facility] [place] Stop: 05/09/23 08:59 Last Admin: 04/11/23 08:18 Dose: 25 mg Miscellaneous (Carbohydrates For Hypoglycemia ) 15 - 30 gm PO UD PRN PRN Reason: Hypoglycemia Protocol Stop: 05/07/23 18:03 Multivitamins (Multivitamin Tab) 1 tab [facility] [place] Stop: 05/08/23 08:59 Last Admin: 04/11/23 08:17 Dose: 1 tab Ondansetron HCl (Ondansetron Inj 2 Mg/Ml 2 Ml Vial) 4 mg IV Q4H PRN PRN Reason: Nausea And Vomiting Stop: 05/07/23 18:03 Psyllium Hydrophilic Mucilloid (Psyllium Or Guar Gum Fiber Powder Packet) 1 pkt PO QAM [facility] Stop: 05/08/23 08:59 Last Admin: 04/11/23 08:19 Dose: 1 pkt Spironolactone (Spironolactone 12.5 Mg Tab) 12.5 mg PO MoWeFr@0900 [facility] Stop: 05/08/23 08:59 Last Admin: 04/11/23 08:18 Dose: 12.5 mg Umeclidinium/Vilanterol (Umeclidinium/Vilanterol 62.5/25mcg 7 Puffs/Inhaler) 1 puffs INH DAILY [facility] Stop: 05/08/23 08:59 Last Admin: 04/11/23 08:22 Dose: 1 puffs
--- NOTE | 2023-04-11 15:13 | Cardiology Progress Note ---
Date of Service April 11, 2023 Assessment & Plan (1) Hypertensive urgency: (2) Bradycardia: (3) CAD (coronary artery disease): (4) CKD (chronic kidney disease), stage III: Plan IMPRESSION: 82 year old medically complex male who presented due to altered mental status secondary to likely TIA- found to be hypertensive and hypoxic on exam. CTA/MRI of the head without acute findings. MRI revealed left frontal encephalomalacia consistent with remote infarct. Chronic lacunar infarct in the right cerebellar hemisphere. Carries a PMH of nonobstructive CAD, AAA, HTN, and CKD stage 4 Telemetry revealing episodes of sinus bradycardia with intermittent episodes of a Mobitz type 1 vs type 2 HB. Patient asymptomatic. -No additional bradycardia noted 04/09/2023, 04/10/2023, 04/11/2023 PLAN: -Continue reduced dose of metoprolol succinate to 25 mg daily. -Amlodipine 2.5 mg twice daily added on 04/08/2023. -Blood pressure still labile, but trending toward improvement. -Renal function at baseline, continue Aldactone as ordered. -Continue ASA 81 mg daily -Not on statin therapy due to history of intolerance, continue Zetia. -Continue treatment at home CPAP machine Admission and Anticipated Discharge Date Admission Date: April 07, 2023 Subjective Patient seen in follow-up today. His son and his spouse were at the bedside at the time my assessment. Patient was oriented to location, self, and his family and my identities, but he still strikes me as not being back to his baseline mental status as the family corroborates. Telemetry reveals sinus rhythm in the 90s for the most part with occasional PVCs. Wandering atrial pacemaker noted otherwise. No significant tachycardia or prolonged bradycardia episodes. No atrial fibrillation. Physical Exam Constitutional: WD/WN, vitals as above no acute distress Neck: normal visual inspection and trachea midline Respiratory: Auscultation: + rales and + wheezes; no rhonchi Cardiovascular: Rate/Rhythm: regular rate and regular rhythm Heart Sounds: normal S1 and normal S2; no murmur (distant heart sounds) Vessels: no JVD Extremities: + edema (Trace bilateral lower extremity edema) Gastrointestinal (Abdomen): normal bowel sounds, soft, nontender, no hepatosplenomegaly Neurologic: PERRL, EOMI, accommodation nl, no face palsy, no dysarthria Results & Data Vital Signs (Past 12 Hours) Vital Signs Temp Pulse Resp BP Pulse Ox O2 Del Method 04/11/23 07:24 36.3 C L 99 H 18 165/88 H 94 Room Air 04/11/23 04:00 92 H 18 Room Air
[2023-04-11] MEDS: CALCIUM 600MG + VIT D 400 IU TAB PO SCH (20:30)
[2023-04-12 07:43] LABS: BUN Creatinine Ratio 25.6 (10-20); Calcium 10.5 mg/dl (8.6-10.3); Creatinine Clr Calc Pharmacy 24.5 ml/min; Est GFR (African American) 25.5 ml/min; Potassium 4.5 mmol/L (3.5-5.1)
--- NOTE | 2023-04-12 08:15 | Hospitalist Progress Note ---
Date of Service April 12, 2023 Assessment & Plan (1) AMS (altered mental status): Plan: - Admitted to PCU - Stroke order set completed, no indication for thrombolytic - CT head reviewed and is negative - MRI brain wo contrast - Chronic and senescent change as above with no acute intracranial abnormality. - Cont baby aspirin - Neurology consulted - I suspect his episode of confusion was related to hypertensive urgency. I am aware that the episode occurred with an associated right facial droop. I believe this finding is related to his chronic left frontal infarct as identified on MRI and CT. Chronic infarcts may sometimes produce transient symptoms in the context of hypertensive urgency as well as other acute active medical comorbidities. Again, there is no evidence of acute or subacute infarct on his imaging and he does not have any evidence of significant vascular lesion on CT angiography. Patient should continue with daily low-dose aspirin and Zetia. He has a history of intolerance to statins. I think it would be reasonable to consider obtaining 30-day mobile cardiac outpatient telemetry. If he is found to have atrial fibrillation, would then need to consider starting Eliquis. Because he has not had any observed seizure activity, I do not think an EEG is necessary at this time. However, the chronic left frontal infarct, with associated encephalomalacia, extending to the cortex, does increase his risk for seizures. If he were to experience any potential seizure-like activity, would recommend EEG in that context. I do not think empiric treatment with an anticonvulsant is necessary at this time. - PT/OT consults placed - recommend rehab - Speech therapy eval (2) Hypertensive urgency: Plan: - SBP 175/110 at home during associated nausea, headache, confusion and difficulty getting dressed, improved status post IV labetalol given in the ER -Patient also became bradycardic into 30s (04/08/23) and concern for AV block, Mobitz type I. ECG obtained and cardiology consulted Telemetry on 04/08 demonstrated transient bradycardia with Mobitz type I heart block, blocked PAC Patient with known obstructive sleep apnea with CPAP per report Plan - reduced metoprolol succinate to 25 mg/day given transient bradycardia. I suspect in part due to hypoxia during sleep resumed CPAP Treat hypertension with addition of amlodipine 2.5 mg twice daily - Cr increased 2.5 (mild FAUSTINO on CKD), hold Aldactone , and give gentle IVF -Continue ASA 81 mg daily No additional bradycardia noted. (3) CAD (coronary artery disease): (4) AAA (abdominal aortic aneurysm): (5) Hypertension: (6) HLD (hyperlipidemia): Plan: - takes spironolactone MWF - hold now as Cr up, pt is taking lasix prn - Continue baby aspirin - Checked lipid panel, LDL 70, continue Zetia 10 mg in the morning - Last a1c was 5.7, previously diabetic but manages with diet, not on any hyperglycemic medications (7) COPD (chronic obstructive pulmonary disease): Plan: - No acute exacerbation - May continue Trelegy - Patient appears to have saturations that have around 90 to 93% on room air, had 1 bout of 88%, CXR is negative Hx of ARIANA - on CPAP (8) CKD (chronic kidney disease), stage III: Plan: - FAUSTINO on CKD - CR/BUN 40/1.62, baseline Cr appears to be ~ 1.5-1.9, now Cr 2.5 hold lasix prn for now, hold spironolactone, give gentle IVF (9) ARIANA (obstructive sleep apnea): Plan: - Cont cpap HS DVT ppx: - teds, scds CODE: DNR/DNI Dispo: From home, likely to DC to rehab (10) Weakness: Admission and Anticipated Discharge Date Admission Date: April 07, 2023 Subjective Pt seen in follow up of confusion, HTN urgency, found to have transient bradycardia Currently sitting up in chair in NAD Pt feels well and has no medical concerns. Denies any new weakness Denies headache Speech is currently normal and no facial droop noted Denies any chest pain, shortness of breath or palpitations. awaiting poss dc to rehab Review of Systems Review of Systems: All systems reviewed & are unremarkable except as noted in Subjective Physical Exam Physical Exam: General: WD/WN, elderly M in NAD Head: Normocephalic, atraumatic, no facial droop ENT: PERRL, EOMI,mucous membranes moist Chest: Clear to auscultation, no adventitious breath sounds Cardiac: Regular rate and rhythm, no murmur, no JVD Abdominal: NABS x 4 quadrants, soft, nondistended, nontender to palpation Extremities: Normal inspection, no peripheral edema or erythema, moves extremities Psych: Normal mood and affect Neuro: AAO x 3, speech is clear, no facial asymmetry, answers appropriately, moves extremities (+ some chronic LE weakness) Results & Data Results & Data Vital Signs (Past 12 Hours) Vital Signs Temp Pulse Pulse Resp BP Pulse Ox O2 Del Method 04/12/23 03:33 37 C 90 18 133/93 95 Room Air 04/11/23 22:00 82 04/11/23 20:20 Room Air, CPAP 04/11/23 23:09 37 C 62 18 149/87 H 94 Nasal CPAP Laboratory Results 04/12/23 04/12/23 04/11/23 Range/Units 07:28 06:17 20:06 Sodium 144 (136-145) mmol/L Potassium 4.5 (3.5-5.1) mmol/L Chloride 110 H (98-107) mmol/L Carbon Dioxide 27 (21-32) mmol/L Anion Gap 7 (3-11) BUN 66 H (6-23) mg/dl Creatinine 2.58 H (0.6-1.4) mg/dl Est Cr Clr Drug Dosing 24.5 ml/min Est GFR ( Amer) 25.5 ml/min Est GFR (Non-Af Amer) 22.0 ml/min BUN/Creatinine Ratio 25.6 H (10-20) Glucose 124 H (70-99(Fasting)) mg/dl POC Glucose 135 H 205 H (70-99) mg/dl Calcium 10.5 H (8.6-10.3) mg/dl 04/11/23 04/11/23 Range/Units 16:31 11:21 Sodium (136-145) mmol/L Potassium (3.5-5.1) mmol/L Chloride (98-107) mmol/L Carbon Dioxide (21-32) mmol/L Anion Gap (3-11) BUN (6-23) mg/dl Creatinine (0.6-1.4) mg/dl Est Cr Clr Drug Dosing ml/min Est GFR ( Amer) ml/min Est GFR (Non-Af Amer) ml/min BUN/Creatinine Ratio (10-20) Glucose (70-99(Fasting)) mg/dl POC Glucose 193 H 135 H (70-99) mg/dl Calcium (8.6-10.3) mg/dl Medications Administered Current Inpatient Medications Acetaminophen (Acetaminophen 325 Mg Tab) 650 mg PO Q4H PRN PRN Reason: Moderate Pain (Scale 4, 5, 6) Stop: 05/07/23 18:03 Last Admin: 04/07/23 19:30 Dose: 650 mg Acetylcysteine (Acetylcysteine 600 Mg Cap) 600 mg PO DAILY [facility] Stop: 05/08/23 08:59 Last Admin: 04/11/23 08:20 Dose: 600 mg Albuterol (Albuterol Hfa 8 Gm Inhaler) 2 puffs INH Q6R PRN PRN Reason: Shortness Of Breath Or Wheezin Stop: 05/07/23 18:03 Albuterol (Albut/Ipratrop 3mg/0.5mg Neb 3 Ml Vial) 3 ml INH Q6R PRN; Protocol PRN Reason: Shortness Of Breath Stop: 05/07/23 18:03 Allopurinol (Allopurinol 300 Mg Tab) [facility] [place] Stop: 05/08/23 08:59 Last Admin: 04/11/23 08:19 Dose: 450 mg Amlodipine Besylate (Amlodipine Besylate 5 Mg Tab) 2.5 mg PO BID [facility] Stop: 05/08/23 20:59 Last Admin: 04/11/23 20:30 Dose: 2.5 mg Aspirin (Aspirin 81 Mg Ectab) 81 [facility] [place] Stop: 05/08/23 08:59 Last Admin: 04/11/23 08:19 Dose: 81 mg Calcium/Vitamin D (Calcium 600mg + Vit D 400 Iu Tab) 1 tab PO HS [facility] Stop: 05/07/23 20:59 Last Admin: 04/11/23 20:30 Dose: 1 tab Cyanocobalamin (Cyanocobalamin (B-12) 500 Mcg Tablet) 1,000 mcg PO QAM [facility] Stop: 05/08/23 08:59 Last Admin: 04/11/23 08:16 Dose: 1,000 mcg Dextrose (Dextrose 50% 50 Ml Syringe) 25 - 50 ml IV UD PRN; Protocol PRN Reason: Hypoglycemia Protocol Stop: 05/07/23 18:03 Docusate Sodium (Docusate Sodium 100 Mg Cap) 100 mg PO BID PRN PRN Reason: Constipation Stop: 05/07/23 18:03 Duloxetine HCl (Duloxetine Hcl 60 Mg Cap) 60 [facility] [place] Stop: 05/08/23 08:59 Last Admin: 04/11/23 08:17 Dose: 60 mg Ezetimibe (Ezetimibe 10 Mg Tablet) 10 mg PO QAM [facility] Stop: 05/08/23 08:59 Last Admin: 04/11/23 08:17 Dose: 10 mg Fluticasone Furoate (Fluticasone Furoate 100mcg 14 Puffs/Inhaler) 1 puffs INH DAILY [facility] Stop: 05/08/23 08:59 Last Admin: 04/11/23 08:22 Dose: 1 puffs Glucagon (Glucagon For Inj 1 Mg Vial) 1 mg SQ UD PRN; Protocol PRN Reason: Hypoglycemia Protocol Stop: 05/07/23 18:03 Glucose (Glucose 10 Tab/Tube) 4 - 8 tab PO UD PRN; Protocol PRN Reason: Hypoglycemia Treatment Stop: 05/07/23 18:03 Glucose (Glucose 40% Gel 15 Gm Tube) 15 - 30 gm PO UD PRN; Protocol PRN Reason: Hypoglycemia Protocol Stop: 05/07/23 18:03 Metoprolol Succinate (Metoprolol Succ 25mg Ext Rel Tab) 25 [facility] [place] Stop: 05/09/23 08:59 Last Admin: 04/11/23 08:18 Dose: 25 mg Miscellaneous (Carbohydrates For Hypoglycemia ) 15 - 30 gm PO UD PRN PRN Reason: Hypoglycemia Protocol Stop: 05/07/23 18:03 Multivitamins (Multivitamin Tab) 1 tab PO QAM [facility] Stop: 05/08/23 08:59 Last Admin: 04/11/23 08:17 Dose: 1 tab Ondansetron HCl (Ondansetron Inj 2 Mg/Ml 2 Ml Vial) 4 mg IV Q4H PRN PRN Reason: Nausea And Vomiting Stop: 05/07/23 18:03 Psyllium Hydrophilic Mucilloid (Psyllium Or Guar Gum Fiber Powder Packet) 1 pkt PO QAM [facility] Stop: 05/08/23 08:59 Last Admin: 04/11/23 08:19 Dose: 1 pkt Spironolactone (Spironolactone 12.5 Mg Tab) 12.5 mg PO MoWeFr@0900 [facility] Stop: 05/08/23 08:59 Last Admin: 04/11/23 08:18 Dose: 12.5 mg Umeclidinium/Vilanterol (Umeclidinium/Vilanterol 62.5/25mcg 7 Puffs/Inhaler) 1 puffs INH DAILY [facility] Stop: 05/08/23 08:59 Last Admin: 04/11/23 08:22 Dose: 1 puffs
[2023-04-12] MEDS: METOPROLOL SUCC 25MG EXT REL TAB PO SCH (10:17)
[2023-04-12] MEDS: amLODIPine BESYLATE 5 MG TAB PO SCH ×2 (10:17→20:34)
[2023-04-12] MEDS: ACETYLCYSTEINE 600 MG CAP PO SCH (10:18)
[2023-04-12] MEDS: FLUTICASONE FUROATE 100MCG 14 PUFFS/INHALER INH SCH (10:18)
[2023-04-12] MEDS: MULTIVITAMIN TAB PO SCH (10:18)
[2023-04-12] MEDS: ASPIRIN 81 MG ECTAB PO SCH (10:19)
[2023-04-12] MEDS: DULoxetine HCL 60 MG CAP PO SCH (10:19)
[2023-04-12] MEDS: CYANOCOBALAMIN (B-12) 500 MCG TABLET PO SCH (10:19)
[2023-04-12] MEDS: PSYLLIUM or GUAR GUM FIBER POWDER PACKET PO SCH (10:20)
[2023-04-12] MEDS: EZETIMIBE 10 MG TABLET PO SCH (10:20)
[2023-04-12] MEDS: allopurinoL 300 MG TAB PO SCH (10:20)
[2023-04-12] MEDS: UMECLIDINIUM/VILANTEROL 62.5/25MCG 7 PUFFS/INHALER INH SCH (10:20)
--- NOTE | 2023-04-12 11:50 | Cardiology Progress Note ---
Date of Service April 12, 2023 Assessment & Plan (1) Hypertensive urgency: (2) Bradycardia: (3) CAD (coronary artery disease): (4) CKD (chronic kidney disease), stage III: (5) FAUSTINO (acute kidney injury): Plan IMPRESSION: 82 year old medically complex male who presented due to altered mental status secondary to likely TIA- found to be hypertensive and hypoxic on exam. CTA/MRI of the head without acute findings. MRI revealed left frontal encephalomalacia consistent with remote infarct. Chronic lacunar infarct in the right cerebellar hemisphere. Carries a PMH of nonobstructive CAD, AAA, HTN, and CKD stage 4 Telemetry revealing episodes of sinus bradycardia with intermittent episodes of a Mobitz type 1 vs type 2 HB. Patient asymptomatic. -No additional bradycardia noted 04/09/2023, 04/10/2023, 04/11/2023 PLAN: -Continue reduced dose of metoprolol succinate to 25 mg daily. -Amlodipine 2.5 mg twice daily added on 04/08/2023. -Blood pressure improved -Renal function worsinging, FAUSTINO noted, baseline creatinein 1.5-1.6 and had trended up to 2.58. -Hold aldactone, gentle IVF, NS 60 ml/hr x 1 liter -Continue ASA 81 mg daily -Not on statin therapy due to history of intolerance, continue Zetia. -Continue treatment at home CPAP machine Admission and Anticipated Discharge Date Admission Date: April 07, 2023 Subjective Patient seen in follow up. Mentation improved, although at this point, I think the patient sherrill has some degree of baseline cognitive impairment. Telemetry reveals sinus rhythm in the 90s with first degree AV block. Occasional short lived bradycardia at rest and during sleeep. Physical Exam Constitutional: WD/WN, vitals as above Respiratory: normal respiratory effort, lungs clear to auscultation Cardiovascular: RRR, no murmur, no edema Neurologic: PERRL, EOMI, accommodation nl, no face palsy, no dysarthria Results & Data Vital Signs (Past 12 Hours) Vital Signs Temp Pulse Resp BP Pulse Ox O2 Del Method 04/12/23 07:25 36.8 C 77 18 121/77 96 Room Air 04/12/23 08:00 36.8 C 63 18 138/80 97 Room Air 04/12/23 08:00 Room Air 04/12/23 03:33 37 C 90 18 133/93 95 Room Air Laboratory Results Comprehensive Metabolic Panel 04/12/23 Range/Units 06:17 Sodium 144 (136-145) mmol/L Potassium 4.5 (3.5-5.1) mmol/L Chloride 110 H (98-107) mmol/L Carbon Dioxide 27 (21-32) mmol/L BUN 66 H (6-23) mg/dl Creatinine 2.58 H (0.6-1.4) mg/dl Glucose 124 H (70-99(Fasting)) mg/dl Calcium 10.5 H (8.6-10.3) mg/dl Intake and Output 04/11/23 04/12/23 04/12/23 22:59 06:59 14:59 Intake Total 460 / 1040 100 / 1040 Output Total 550 / 1050 Balance 460 / -10 -450 / -10 Intake: Oral 460 / 560 100 / 560 Output: Urine 550 / 1050 Other: # Unmeasured Voids 2
[2023-04-12] MEDS ORDERED: SODIUM CHLORIDE 0.9% 1000ML 1,000 ML IV SCH (12:00)
[2023-04-12] MEDS: ACETAMINOPHEN 325 MG TAB PO PRN (15:16)
[2023-04-12] MEDS: CALCIUM 600MG + VIT D 400 IU TAB PO SCH (20:34)
[2023-04-13 07:31] LABS: Calcium 10.4 mg/dl (8.6-10.3); Creatinine Clr Calc Pharmacy 27.5 ml/min; Est GFR (African American) 29.3 ml/min; Est GFR (Non-African American) 25.3 ml/min; Potassium 4.2 mmol/L (3.5-5.1)
[2023-04-13] MEDS: PSYLLIUM or GUAR GUM FIBER POWDER PACKET PO SCH (09:04)
[2023-04-13] MEDS: amLODIPine BESYLATE 5 MG TAB PO SCH ×2 (09:05→20:06)
[2023-04-13] MEDS: DULoxetine HCL 60 MG CAP PO SCH (09:06)
[2023-04-13] MEDS: CYANOCOBALAMIN (B-12) 500 MCG TABLET PO SCH (09:06)
[2023-04-13] MEDS: ACETYLCYSTEINE 600 MG CAP PO SCH (09:06)
[2023-04-13] MEDS: ASPIRIN 81 MG ECTAB PO SCH (09:06)
[2023-04-13] MEDS: MULTIVITAMIN TAB PO SCH (09:07)
[2023-04-13] MEDS: METOPROLOL SUCC 25MG EXT REL TAB PO SCH (09:07)
[2023-04-13] MEDS: allopurinoL 300 MG TAB PO SCH (09:07)
[2023-04-13] MEDS: FLUTICASONE FUROATE 100MCG 14 PUFFS/INHALER INH SCH (09:12)
[2023-04-13] MEDS: UMECLIDINIUM/VILANTEROL 62.5/25MCG 7 PUFFS/INHALER INH SCH (09:12)
[2023-04-13] MEDS: EZETIMIBE 10 MG TABLET PO SCH (09:13)
--- NOTE | 2023-04-13 15:20 | Cardiology Progress Note ---
Date of Service April 13, 2023 Assessment & Plan (1) Hypertensive urgency: (2) Bradycardia: (3) CAD (coronary artery disease): (4) CKD (chronic kidney disease), stage III: (5) FAUSTINO (acute kidney injury): Plan IMPRESSION: 82 year old medically complex male who presented due to altered mental status secondary to likely TIA- found to be hypertensive and hypoxic on exam. CTA/MRI of the head without acute findings. MRI revealed left frontal encephalomalacia consistent with remote infarct. Chronic lacunar infarct in the right cerebellar hemisphere. Carries a PMH of nonobstructive CAD, AAA, HTN, and CKD stage 4 Telemetry revealing episodes of sinus bradycardia with intermittent episodes of a Mobitz type 1 vs type 2 HB. Patient asymptomatic. -No additional bradycardia noted 04/09/2023, 04/10/2023, 04/11/2023 PLAN: -Creatinine improved from 2.58-->2.3 -Continue reduced dose of metoprolol succinate to 25 mg daily. -Amlodipine 2.5 mg twice daily added on 04/08/2023. -Blood pressure improved -Renal function worsening, FAUSTINO noted, baseline creatinein 1.5-1.6 and had trended up to 2.58. -Hold aldactone, gentle IVF, NS 60 ml/hr x 1 liter -Continue ASA 81 mg daily -Not on statin therapy due to history of intolerance, continue Zetia. -Continue treatment at home CPAP machine Admission and Anticipated Discharge Date Admission Date: April 07, 2023 Subjective Pt without complaints. Physical Exam Constitutional: WD/WN, vitals as above no acute distress Neck: normal visual inspection and trachea midline Respiratory: normal respiratory effort, lungs clear to auscultation Auscultation: + rales and + wheezes; no rhonchi Cardiovascular: RRR, no murmur, no edema Rate/Rhythm: regular rate and regular rhythm Heart Sounds: normal S1 and normal S2; no murmur (distant heart sounds) Vessels: no JVD Extremities: + edema (Trace bilateral lower extremity edema) Gastrointestinal (Abdomen): normal bowel sounds, soft, nontender, no hepatosplenomegaly Neurologic: PERRL, EOMI, accommodation nl, no face palsy, no dysarthria Psychiatric: A+Ox3, euthymic affect Results & Data Vital Signs (Past 12 Hours) Vital Signs Temp Pulse Resp BP Pulse Ox O2 Del Method 04/13/23 08:00 Room Air 04/13/23 11:01 36.7 C 62 18 106/72 98 Room Air 04/13/23 07:40 36.5 C 80 18 143/91 H 96 Room Air
--- NOTE | 2023-04-13 17:11 | Hospitalist Progress Note ---
Date of Service April 13, 2023 Assessment & Plan (1) AMS (altered mental status): Plan: per admitting service notes with addendum: - Admitted to PCU - Stroke order set completed, no indication for thrombolytic - CT head reviewed and is negative - MRI brain wo contrast - Chronic and senescent change as above with no acute intracranial abnormality. - Cont baby aspirin - Neurology consulted - I suspect his episode of confusion was related to hypertensive urgency. I am aware that the episode occurred with an associated right facial droop. I believe this finding is related to his chronic left frontal infarct as identified on MRI and CT. Chronic infarcts may sometimes produce transient symptoms in the context of hypertensive urgency as well as other acute active medical comorbidities. Again, there is no evidence of acute or subacute infarct on his imaging and he does not have any evidence of significant vascular lesion on CT angiography. Patient should continue with daily low-dose aspirin and Zetia. He has a history of intolerance to statins. I think it would be reasonable to consider obtaining 30-day mobile cardiac outpatient telemetry. If he is found to have atrial fibrillation, would then need to consider starting Eliquis. Because he has not had any observed seizure activity, I do not think an EEG is necessary at this time. However, the chronic left frontal infarct, with associated encephalomalacia, extending to the cortex, does increase his risk for seizures. If he were to experience any potential seizure-like activity, would recommend EEG in that context. I do not think empiric treatment with an anticonvulsant is necessary at this time. - PT/OT consults placed - recommend rehab - Speech therapy eval 04/13 Mental status back to baseline Continue to monitor blood pressure Awaiting acceptance to acute rehab (2) Hypertensive urgency: Plan: - SBP 175/110 at home during associated nausea, headache, confusion and difficulty getting dressed, improved status post IV labetalol given in the ER -Patient also became bradycardic into 30s (04/08/23) and concern for AV block, Mobitz type I. ECG obtained and cardiology consulted Telemetry on 04/08 demonstrated transient bradycardia with Mobitz type I heart block, blocked PAC Patient with known obstructive sleep apnea with CPAP per report Plan - reduced metoprolol succinate to 25 mg/day given transient bradycardia. I suspect in part due to hypoxia during sleep resumed CPAP Treat hypertension with addition of amlodipine 2.5 mg twice daily - Cr increased 2.5 (mild FAUSTINO on CKD), hold Aldactone , and give gentle IVF -Continue ASA 81 mg daily No additional bradycardia noted. 04/13 Awaiting acceptance to acute rehab (3) CAD (coronary artery disease): (4) AAA (abdominal aortic aneurysm): (5) Hypertension: (6) HLD (hyperlipidemia): Plan: - takes spironolactone MWF - hold now as Cr up, pt is taking lasix prn - Continue baby aspirin - Checked lipid panel, LDL 70, continue Zetia 10 mg in the morning - Last a1c was 5.7, previously diabetic but manages with diet, not on any hyperglycemic medications (7) COPD (chronic obstructive pulmonary disease): Plan: - No acute exacerbation - May continue Trelegy - Patient appears to have saturations that have around 90 to 93% on room air, had 1 bout of 88%, CXR is negative Hx of ARIANA - on CPAP (8) CKD (chronic kidney disease), stage III: Plan: - FAUSTINO on CKD - CR/BUN 40/1.62, baseline Cr appears to be ~ 1.5-1.9, crea 2.3 diuretics on hold (9) ARIANA (obstructive sleep apnea): Plan: - Cont CPAP HS DVT ppx: - teds, scds CODE: DNR/DNI Disposition: Acute rehab (10) Weakness: Admission and Anticipated Discharge Date Admission Date: April 07, 2023 Subjective ff up for confusion, hypertensive urgency, etc. Seen resting in bed, oriented x3, answers all questions appropriately States he still feels weak and has difficulty with ambulating independently no chest pain, dyspnea, palpitations, dizziness No other symptoms Review of Systems Review of Systems: all noted and negative except for above Physical Exam Physical Exam: General- oriented x 3, not in distress, speaks in sentences with no effort or accessory muscle use Eyes- anicteric Neck- no JVD Lungs- clear breath sounds bilaterally, no crackles or wheezing Heart- normal rate, regular rhythm; no murmurs Abdomen- normal bowel sounds, nondistended, soft, no tenderness Extremities- no pretibial edema, no calf tenderness Neuro- alert, oriented x 3; no gross focal neurologic deficits Skin- warm & dry Results & Data Results & Data Vital Signs (Past 12 Hours) Vital Signs Temp Pulse Resp BP Pulse Ox O2 Del Method 04/13/23 15:23 36.6 C 80 18 144/90 H 95 Room Air 04/13/23 08:00 Room Air 04/13/23 11:01 36.7 C 62 18 106/72 98 Room Air 04/13/23 07:40 36.5 C 80 18 143/91 H 96 Room Air all noted and reviewed including below
[2023-04-13] MEDS: POLYETHYLENE (MIRALAX) 17 GM PACK PO SCH (18:16)
[2023-04-13] MEDS: ACETAMINOPHEN 325 MG TAB PO PRN (20:07)
[2023-04-14 08:26] LABS: BUN Creatinine Ratio 27.6 (10-20); Creatinine Clr Calc Pharmacy 32.2 ml/min; Est GFR (African American) 35.6 ml/min; Est GFR (Non-African American) 30.7 ml/min; Potassium 4.6 mmol/L (3.5-5.1)
[2023-04-14] MEDS: FLUTICASONE FUROATE 100MCG 14 PUFFS/INHALER INH SCH (09:04)
[2023-04-14] MEDS: PSYLLIUM or GUAR GUM FIBER POWDER PACKET PO SCH (09:05)
[2023-04-14] MEDS: UMECLIDINIUM/VILANTEROL 62.5/25MCG 7 PUFFS/INHALER INH SCH (09:05)
[2023-04-14] MEDS: MULTIVITAMIN TAB PO SCH (09:06)
[2023-04-14] MEDS: ACETYLCYSTEINE 600 MG CAP PO SCH (09:06)
[2023-04-14] MEDS: DULoxetine HCL 60 MG CAP PO SCH (09:06)
[2023-04-14] MEDS: EZETIMIBE 10 MG TABLET PO SCH (09:06)
[2023-04-14] MEDS: METOPROLOL SUCC 25MG EXT REL TAB PO SCH (09:06)
[2023-04-14] MEDS: CYANOCOBALAMIN (B-12) 500 MCG TABLET PO SCH (09:06)
[2023-04-14] MEDS: allopurinoL 300 MG TAB PO SCH (09:07)
[2023-04-14] MEDS: amLODIPine BESYLATE 5 MG TAB PO SCH ×2 (09:07→19:56)
[2023-04-14] MEDS: ASPIRIN 81 MG ECTAB PO SCH (09:07)
[2023-04-14] MEDS: POLYETHYLENE (MIRALAX) 17 GM PACK PO SCH ×2 (09:08→12:42)
--- NOTE | 2023-04-14 14:03 | Cardiology Progress Note ---
Date of Service April 14, 2023 Assessment & Plan (1) Hypertensive urgency: (2) Bradycardia: (3) CAD (coronary artery disease): (4) CKD (chronic kidney disease), stage III: (5) FAUSTINO (acute kidney injury): Plan IMPRESSION: 82 year old medically complex male who presented due to altered mental status secondary to likely TIA- found to be hypertensive and hypoxic on exam. CTA/MRI of the head without acute findings. MRI revealed left frontal encephalomalacia consistent with remote infarct. Chronic lacunar infarct in the right cerebellar hemisphere. Carries a PMH of nonobstructive CAD, AAA, HTN, and CKD stage 4 Telemetry revealing episodes of sinus bradycardia with intermittent episodes of a Mobitz type 1 vs type 2 HB. Patient asymptomatic. -No additional bradycardia noted 04/09/2023, 04/10/2023, 04/11/2023 PLAN: -Creatinine improved from 2.58-->2.3 --> 1.96 -Continue reduced dose of metoprolol succinate to 25 mg daily. -Amlodipine 2.5 mg twice daily added on 04/08/2023. -Blood pressure improved -Aldactone remains on hold. -Continue ASA 81 mg daily -Not on statin therapy due to history of intolerance, continue Zetia. -Continue treatment at home CPAP machine -Would recommend rehab. Per review of case management notes, insurance denied transfer to [facility] and a peer to peer review is tentatively scheduled for this afternoon. Admission and Anticipated Discharge Date Admission Date: April 07, 2023 Subjective Patient seen in cardiology follow-up. No complaints. Telemetry reveals sinus rhythm with first-degree AV block in the 70s, occasional episodes of ongoing wandering atrial pacemaker noted. Blood pressure under better control. Physical Exam Constitutional: WD/WN, vitals as above no acute distress Neck: normal visual inspection and trachea midline Respiratory: normal respiratory effort, lungs clear to auscultation Auscultation: + rales and + wheezes; no rhonchi Cardiovascular: RRR, no murmur, no edema Rate/Rhythm: regular rate and regular rhythm Heart Sounds: normal S1 and normal S2; no murmur (distant heart sounds) Vessels: no JVD Extremities: + edema (Trace bilateral lower extremity edema) Gastrointestinal (Abdomen): normal bowel sounds, soft, nontender, no hepatos plenomegaly Neurologic: PERRL, EOMI, accommodation nl, no face palsy, no dysarthria Psychiatric: A+Ox3, euthymic affect Results & Data Vital Signs (Past 12 Hours) Vital Signs Temp Pulse Resp BP BP Pulse Ox O2 Del Method 04/14/23 11:15 37.0 C 68 18 132/69 99 Room Air 04/14/23 08:00 Room Air 04/14/23 07:09 36.8 C 71 18 129/93 96 Room Air 04/14/23 03:50 36.8 C 80 18 146/92 H 95 Room Air
--- NOTE | 2023-04-14 15:25 | Nephrology Consultation ---
Date of Consultation April 14, 2023 Assessment & Plan (1) FAUSTINO (acute kidney injury): Etiology of acute renal failure seems unclear. He is making urine and the urine sediment is pretty bland. After peaking at 2.5 creatinine is now trending down which is a good sign. Creatinine still 1.96 which is higher than his baseline of around 1.4 Given that creatinine is starting to get better I do not feel we have to do any further work-up It is quite possible that he may have been slightly volume depleted at the time of admission. As an outpatient he does take a low-dose Lasix and low-dose spironolactone. Continue to hold both for today but we may be able to restart from tomorrow depending on the labs. I will not give any more IV fluid at this He follows with Dr. Gina Murillo and will set up postdischarge appointment with her within 2-weeks. (2) AMS (altered mental status): Unclear etiology but seems to have resolved and is back to baseline History of Present Illness Reason for Consultation: Acute kidney injury on background CKD 3A Attending Physician: Tim Workman MD History of Present Illness 82/M with AAA, HTN, HLD, DM type II, CKD stage III A--baseline creatinine around 1.3-1.4, COPD on CPAP at bedtime, depression who presented to the hospital with acute altered mental status 1 week ago. Creatinine on admission was higher than baseline at 1.6 and since then actually went up even further despite Lasix being on hold. Patient gets Lasix with a low-dose as well as spironolactone every other day as an outpatient. Creatinine was 2.6 yesterday but today is slightly lower at 1.9. He did receive gentle hydration through cardiology yesterday . In general patient has been having progressive weakness over the last few months, having difficulty with walking. Pt is very sedentary, primarily wheelchair/scooter bound. Denies any other acute complaints. Blood pressure was elevated at 175/43 at the time of admission, and was also hypoxic at 88% on room air. He received DuoNeb treatment,now maintains oxygen saturations of around 93% on RA. CT of the head is negative, CTA of the head and neck is also negative. Currently patient is on room air and saturating 98 to and does not seem to be in any respiratory distress. Review of system-----as detailed in HPI unless stated otherwise 12 system reviewed and negative Physical Exam Constitutional: WD/WN, vitals as above no acute distress Neck: normal visual inspection and trachea midline Respiratory: normal respiratory effort, lungs clear to auscultation Auscultation: + rales and + wheezes; no rhonchi Cardiovascular: RRR, no murmur, Rate/Rhythm: regular rate and regular rhythm Heart Sounds: normal S1 and normal S2; no murmur (distant heart sounds) Vessels: no JVD Extremities: + edema Gastrointestinal (Abdomen): normal bowel sounds, soft, nontender, no hepatosplenomegaly Neurologic: PERRL, EOMI, accommodation nl, no face palsy, no dysarthria Psychiatric: A+Ox3, euthymic affect Allergies Allergy/AdvReac Type Severity Reaction Status Date / Time Xummlee-ONE-LfZ Reductase AdvReac Intermediate Dizziness Verified 09/14/21 09:32 Inhibitor [Dgsbnkw-Zjg-Pwm Reductase Inhibitor] Home Medications Medication Instructions Recorded Confirmed Type allopurinol 300 mg tablet 1.5 tab PO QAM 05/30/18 04/07/23 History aspirin 81 mg tablet,delayed 81 mg PO Q2D 05/30/18 04/07/23 History release calcium carbonate 500 mg-vitamin 1 tab PO HS 05/30/18 04/07/23 History D3 5 mcg (200 unit) tablet (Calcium 500 + D) docusate sodium 100 mg capsule 100 mg PO BID PRN Constipation 05/30/18 04/07/23 History (Colace) duloxetine 30 mg capsule,delayed 60 mg PO QAM 05/30/18 04/07/23 History release (Cymbalta) ipratropium 0.5 mg-albuterol 3 mg 1 dose inhalation Q6H PRN 05/30/18 04/07/23 History (2.5 mg base)/3 mL nebulization Shortness Of Breath soln metoprolol succinate 25 mg 25 mg PO BID 05/30/18 04/07/23 History tablet,extended release 24 hr multivitamin 1 tab PO QAM 05/30/18 04/07/23 History albuterol sulfate 90 mcg/actuation 2 puff inhalation Q6H PRN 06/26/18 04/07/23 History aerosol inhaler (Ventolin HFA) Shortness Of Breath Or Wheezing ezetimibe 10 mg tablet (Zetia) 10 mg PO QAM 06/26/18 04/07/23 History acetylcysteine 600 mg capsule (NAC) 600 mg PO DAILY 12/02/20 04/07/23 History cephalexin 500 mg tablet 500 mg PO UD PRN Other 12/02/20 04/07/23 History cyanocobalamin (vitamin B-12) 1,000 mcg PO QAM 12/02/20 04/07/23 History 1,000 mcg tablet fluticasone fur. 100 mcg-umeclid 1 inh inhalation QAM 12/02/20 04/07/23 History 62.5 mcg-vilant 25 mcg inhalat.powder (Trelegy Ellipta) furosemide 40 mg tablet 40 mg PO QAM PRN edema 12/02/20 04/07/23 History psyllium husk 3.4 gram/5.4 gram 1 tbsp PO QAM 12/02/20 04/07/23 History oral powder (Metamucil) spironolactone 25 mg tablet 12.5 mg PO Q OTHER DAY 12/02/20 04/07/23 History (Aldactone) Patient History Medical History AAA (abdominal aortic aneurysm) (CARDIO MONITORING) CAD (coronary artery disease) 2015 cath showed no high-grade obstruction -- no stents. Follows with [facility] cardio. Chronic back pain CKD (chronic kidney disease), stage III COPD (chronic obstructive pulmonary disease) HLD (hyperlipidemia) Hx of gout Hx of melanoma of skin Hypertension Neuropathy BLE Osteoarthritis Sleep apnea CPAP -- reports at least 4-5hrs of use every night SOB (shortness of breath) on exertion Surgical History Fusion of spine LUMBAR X 2 H/O esophagogastroduodenoscopy History of adenoidectomy History of cardiac cath 2016- NO STENTS History of partial knee replacement RT History of tonsillectomy Hx of LASIK Status post Mohs surgery Family History Mother Diabetes Brother Family hx of colon cancer Diabetes Other Bladder cancer COPD (chronic obstructive pulmonary disease) Hypertension No family history of adverse response to anesthesia Social History Smoking Status: Never smoker Second Hand Exposure: No; Do You Dip or Chew Tobacco: No; Tobacco Cessation Education Requested by Patient: No Hx Alcohol Use: No Hx Substance Use: No Preferred Language: [place] Communication Ability: Effective Visual Impairment: No Limitations 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: No Beliefs That Will Affect Care: None marital status: Current Living Situation: Spouse Other Information That Helps Us Care for You: No Feels Safe at Home: Yes Safety Concerns: Feels Safe At This Time Assistive Devices: CPAP, Walker and Wheelchair Results & Data Vital Signs (Past 12 Hours) Vital Signs Temp Pulse Resp BP BP Pulse Ox O2 Del Method 04/14/23 14:44 36.8 C 79 18 134/80 98 Room Air 04/14/23 11:15 37.0 C 68 18 132/69 99 Room Air 04/14/23 08:00 Room Air 04/14/23 07:09 36.8 C 71 18 129/93 96 Room Air 04/14/23 03:50 36.8 C 80 18 146/92 H 95 Room Air Laboratory Results Reviewed in chronological order
--- NOTE | 2023-04-14 16:30 | Hospitalist Progress Note ---
Date of Service April 14, 2023 Assessment & Plan (1) AMS (altered mental status): Plan: per admitting service notes with addendum: - Admitted to PCU - Stroke order set completed, no indication for thrombolytic - CT head reviewed and is negative - MRI brain wo contrast - Chronic and senescent change as above with no acute intracranial abnormality. - Cont baby aspirin - Neurology consulted - I suspect his episode of confusion was related to hypertensive urgency. I am aware that the episode occurred with an associated right facial droop. I believe this finding is related to his chronic left frontal infarct as identified on MRI and CT. Chronic infarcts may sometimes produce transient symptoms in the context of hypertensive urgency as well as other acute active medical comorbidities. Again, there is no evidence of acute or subacute infarct on his imaging and he does not have any evidence of significant vascular lesion on CT angiography. Patient should continue with daily low-dose aspirin and Zetia. He has a history of intolerance to statins. I think it would be reasonable to consider obtaining 30-day mobile cardiac outpatient telemetry. If he is found to have atrial fibrillation, would then need to consider starting Eliquis. Because he has not had any observed seizure activity, I do not think an EEG is necessary at this time. However, the chronic left frontal infarct, with associated encephalomalacia, extending to the cortex, does increase his risk for seizures. If he were to experience any potential seizure-like activity, would recommend EEG in that context. I do not think empiric treatment with an anticonvulsant is necessary at this time. - PT/OT consults placed - recommend rehab - Speech therapy eval 04/14 Mental status back to baseline Blood pressure improved Awaiting acceptance to acute rehab/correction facility (2) Hypertensive urgency: Plan: - SBP 175/110 at home during associated nausea, headache, confusion and difficulty getting dressed, improved status post IV labetalol given in the ER -Patient also became bradycardic into 30s (04/08/23) and concern for AV block, Mobitz type I. ECG obtained and cardiology consulted Telemetry on 04/08 demonstrated transient bradycardia with Mobitz type I heart block, blocked PAC Patient with known obstructive sleep apnea with CPAP per report Plan - reduced metoprolol succinate to 25 mg/day given transient bradycardia. I suspect in part due to hypoxia during sleep resumed CPAP Treat hypertension with addition of amlodipine 2.5 mg twice daily - Cr increased 2.5 (mild FAUSTINO on CKD), hold Aldactone , and give gentle IVF -Continue ASA 81 mg daily No additional bradycardia noted. 04/14 Awaiting acceptance to acute rehab (3) CAD (coronary artery disease): (4) AAA (abdominal aortic aneurysm): (5) Hypertension: (6) HLD (hyperlipidemia): Plan: - takes spironolactone MWF - hold now as Cr up, pt is taking lasix prn - Continue baby aspirin - Checked lipid panel, LDL 70, continue Zetia 10 mg in the morning - Last a1c was 5.7, previously diabetic but manages with diet, not on any hyperglycemic medications (7) COPD (chronic obstructive pulmonary disease): Plan: - No acute exacerbation - May continue Trelegy - Patient appears to have saturations that have around 90 to 93% on room air, had 1 bout of 88%, CXR is negative Hx of ARIANA - on CPAP (8) CKD (chronic kidney disease), stage III: Plan: - FAUSTINO on CKD - CR/BUN 40/1.62, baseline Cr appears to be ~ 1.5-1.9, crea 2.3 --> 1.9 Repeat BUN/creatinine tomorrow Likely to resume Tomorrow Nephrology consulted (9) ARIANA (obstructive sleep apnea): Plan: - Cont CPAP HS DVT ppx: - nestor williamson CODE: DNR/DNI Disposition: SNF (10) Weakness: Admission and Anticipated Discharge Date Admission Date: April 07, 2023 Subjective Follow-up for hypertensive urgency, etc. Seen sitting up in bedside chair, comfortable, in good spirits States he feels okay overall Denies headache, dizziness, chest pain, shortness of breath Still feels weak Agreeable to go to acute rehab No other new symptom Review of Systems Review of Systems: all noted and negative except for above Physical Exam Physical Exam: General- oriented x 3, not in distress, speaks in sentences with no effort or accessory muscle use Eyes- anicteric Neck- no JVD Lungs- clear breath sounds, mild rales at the bases Heart- normal rate, regular rhythm; no murmurs Abdomen- normal bowel sounds, nondistended, soft, no tenderness Extremities-mild lower leg edema, no calf tenderness Neuro- alert, oriented x 3; no gross focal neurologic deficits Skin- warm & dry Results & Data Results & Data Vital Signs (Past 12 Hours) Vital Signs Temp Pulse Resp BP Pulse Ox O2 Del Method 04/14/23 14:44 36.8 C 79 18 134/80 98 Room Air 04/14/23 11:15 37.0 C 68 18 132/69 99 Room Air 04/14/23 08:00 Room Air 04/14/23 07:09 36.8 C 71 18 129/93 96 Room Air all noted and reviewed including below
[2023-04-14] MEDS: ACETAMINOPHEN 325 MG TAB PO PRN (22:37)
[2023-04-15] MEDS: DULoxetine HCL 60 MG CAP PO SCH (08:47)
[2023-04-15] MEDS: ASPIRIN 81 MG ECTAB PO SCH (08:47)
[2023-04-15] MEDS: amLODIPine BESYLATE 5 MG TAB PO SCH ×2 (08:47→20:45)
[2023-04-15] MEDS: EZETIMIBE 10 MG TABLET PO SCH (08:47)
[2023-04-15] MEDS: FLUTICASONE FUROATE 100MCG 14 PUFFS/INHALER INH SCH (08:48)
[2023-04-15] MEDS: ACETYLCYSTEINE 600 MG CAP PO SCH (08:48)
[2023-04-15] MEDS: UMECLIDINIUM/VILANTEROL 62.5/25MCG 7 PUFFS/INHALER INH SCH (08:48)
[2023-04-15] MEDS: POLYETHYLENE (MIRALAX) 17 GM PACK PO SCH (08:49)
[2023-04-15] MEDS: CYANOCOBALAMIN (B-12) 500 MCG TABLET PO SCH (08:49)
[2023-04-15] MEDS: MULTIVITAMIN TAB PO SCH (08:49)
[2023-04-15] MEDS: allopurinoL 300 MG TAB PO SCH (08:49)
[2023-04-15] MEDS: PSYLLIUM or GUAR GUM FIBER POWDER PACKET PO SCH (08:49)
[2023-04-15] MEDS: METOPROLOL SUCC 25MG EXT REL TAB PO SCH (08:49)
[2023-04-15] MEDS: ACETAMINOPHEN 325 MG TAB PO PRN (08:54)
[2023-04-15 09:36] LABS: BUN Creatinine Ratio 25.9 (10-20); Creatinine Clr Calc Pharmacy 32.4 ml/min; Est GFR (African American) 34.5 ml/min; Est GFR (Non-African American) 29.8 ml/min; Potassium 4.6 mmol/L (3.5-5.1)
[2023-04-15] MEDS: FUROSEMIDE 20 MG TAB PO SCH (12:03)
--- NOTE | 2023-04-15 12:05 | Cardiology Progress Note ---
Date of Service April 15, 2023 Assessment & Plan (1) Hypertensive urgency: (2) Bradycardia: (3) CAD (coronary artery disease): (4) CKD (chronic kidney disease), stage III: (5) FAUSTINO (acute kidney injury): Plan IMPRESSION: 82 year old medically complex male who presented due to altered mental status secondary to likely TIA- found to be hypertensive and hypoxic on exam. CTA/MRI of the head without acute findings. MRI revealed left frontal encephalomalacia consistent with remote infarct. Chronic lacunar infarct in the right cerebellar hemisphere. Carries a PMH of nonobstructive CAD, AAA, HTN, and CKD stage 4 Telemetry revealing episodes of sinus bradycardia with intermittent episodes of a Mobitz type 1 vs type 2 HB. Patient asymptomatic. -No additional bradycardia noted 04/09/2023, 04/10/2023, 04/11/2023 PLAN: -Creatinine improved from 2.58-->2.3 --> 1.96-->2.0 -Continue reduced dose of metoprolol succinate to 25 mg daily. -Amlodipine 2.5 mg twice daily added on 04/08/2023. -Remain off of spironolactone. Blood pressure has been well controlled without it, and creatinine is now above his usual baseline. -Blood pressure improved -Continue ASA 81 mg daily -Not on statin therapy due to history of intolerance, continue Zetia. -Continue treatment at home CPAP machine -Pending rehab placement. -Cardiology to sign off. Please call with questions or concerns. Admission and Anticipated Discharge Date Admission Date: April 07, 2023 Subjective Patient seen in cardiology follow-up. Notes he walked short distances to the commode today. Mental status is at its recent baseline. Telemetry reveals sinus rhythm in the range of 70 to 90 bpm without any bradycardia overnight last night. Physical Exam Constitutional: WD/WN, vitals as above Respiratory: normal respiratory effort, lungs clear to auscultation Cardiovascular: RRR, no murmur, no edema Neurologic: No focal deficits Results & Data Vital Signs (Past 12 Hours) Vital Signs Temp Pulse Pulse Resp BP Pulse Ox O2 Del Method 04/15/23 11:17 36.9 C 62 20 107/72 97 Room Air 04/15/23 08:00 36.1 C L 04/15/23 07:45 37 C 84 21 150/95 H 94 Room Air 04/15/23 07:00 81 04/15/23 03:49 36.3 C L 80 18 145/95 H 95 Room Air Laboratory Results Creatinine 04/15/2023: 2.01 compared to 1.96 yesterday
--- NOTE | 2023-04-15 14:01 | Nephrology Progress Note ---
Date of Service April 15, 2023 Assessment & Plan Admission and Anticipated Discharge Date Admission Date: April 07, 2023 Subjective Assessment & Plan (1) FAUSTINO (acute kidney injury): Etiology of acute renal failure seems unclear. He is making urine and the urine sediment is pretty bland. After peaking at 2.5 creatinine is now trending down which is a good sign. Creatinine still 1.96 which is higher than his baseline of around 1.4 Given that creatinine is starting to get better I do not feel we have to do any further work-up It is quite possible that he may have been slightly volume depleted at the time of admission. As an outpatient he does take a low-dose Lasix and low-dose spironolactone. Continue to hold both for now. has been off both for more than a week and no consequences. Creat seems to have plateaued at a higher level of around 2. We will accept this is a new baseline for the time being. If everything else is fine I have no problem patient being discharged. waiting for rehab I will not give any more IV fluid at this He follows with Dr. Gina Murillo and will set up postdischarge appointment with her within 2-weeks. (2) AMS (altered mental status): Unclear etiology but seems to have resolved and is back to baseline S--no new issues. Labs stable. on RA. Physical Exam Constitutional: WD/WN, vitals as above no acute distress Neck: normal visual inspection and trachea midline Respiratory: normal respiratory effort, lungs clear to auscultation Auscultation: + rales and + wheezes; no rhonchi Cardiovascular: RRR, no murmur, Rate/Rhythm: regular rate and regular rhythm Heart Sounds: normal S1 and normal S2; no murmur (distant heart sounds) Vessels: no JVD Extremities: + edema Gastrointestinal (Abdomen): normal bowel sounds, soft, nontender, no hepatosplenomegaly Neurologic: PERRL, EOMI, accommodation nl, no face palsy, no dysarthria Psychiatric: A+Ox3, euthymic affect Results & Data Vital Signs (Past 12 Hours) Vital Signs Temp Pulse Pulse Resp BP Pulse Ox O2 Del Method 04/15/23 11:17 36.9 C 62 20 107/72 97 Room Air 04/15/23 08:00 36.1 C L 04/15/23 07:45 37 C 84 21 150/95 H 94 Room Air 04/15/23 07:00 81 04/15/23 03:49 36.3 C L 80 18 145/95 H 95 Room Air
--- NOTE | 2023-04-15 16:28 | Hospitalist Progress Note ---
Date of Service April 15, 2023 Assessment & Plan (1) AMS (altered mental status): Plan: (1) AMS (altered mental status): Plan: per admitting service notes with addendum: - Admitted to PCU - Stroke order set completed, no indication for thrombolytic - CT head reviewed and is negative - MRI brain wo contrast -Chronic and senescent change as above with no acute intracranial abnormality. - Cont baby aspirin - Neurology consulted - I suspect his episode of confusion was related to hypertensive urgency. I am aware that the episode occurred with an associated right facial droop. I believe this finding is related to his chronic left frontal infarct as identified on MRI and CT. Chronic infarcts may sometimes produce transient symptoms in the context of hypertensive urgency as well as other acute active medical comorbidities. Again, there is no evidence of acute or subacute infarct on his imaging and he does not have any evidence of significant vascular lesion on CT angiography. Patient should continue with daily low-dose aspirin and Zetia.He has a history of intolerance to statins. I think it would be reasonable to consider obtaining 30-day mobile cardiac outpatient telemetry. If he is found to have atrial fibrillation, would then need to consider starting Eliquis. Because he has not had any observed seizure activity, I do not think an EEG is necessary at this time. However, the chronic left frontal infarct, with associated encephalomalacia, extending to the cortex, does increase his risk for seizures. If he were to experience any potential seizure-like activity, would recommend EEG in that context. I do not think empiric treatment with an anticonvulsant is necessary at this time. - PT/OT consults placed - recommend rehab - Speech therapy eval 04/15 Mental status back to baseline Blood pressure improved Awaiting acceptance to acute rehab/[facility] facility (2) Hypertensive urgency: Plan: - SBP 175/110 at home during associated nausea, headache, confusion and difficulty getting dressed, improved status post IV labetalol given in the ER -Patient also became bradycardic into 30s (04/08/23) and concern for AV block, Mobitz type I. ECG obtained and cardiology consulted Telemetry on 04/08 demonstrated transient bradycardia with Mobitz type I heart block, blocked PAC Patient with known obstructive sleep apnea with CPAP per report Plan - reduced metoprolol succinate to 25 mg/day given transient bradycardia. I suspect in part due to hypoxia during sleep resumed CPAP Treat hypertension with addition ofamlodipine 2.5 mg twice daily - Cr increased 2.5 (mild FAUSTINO on CKD),hold Aldactone , and give gentle IVF -Continue ASA 81 mg daily No additional bradycardia noted. 04/15 Awaiting acceptance to acute rehab Will resume Lasix today (3) CAD (coronary artery disease): (4) AAA (abdominal aortic aneurysm): (5) Hypertension: (6) HLD (hyperlipidemia): Plan: - takes spironolactone MWF - hold now as Cr up, pt is taking lasix prn - Continue baby aspirin - Checked lipid panel, LDL 70, continue Zetia 10 mg in the morning - Last a1c was 5.7, previously diabetic but manages with diet, not on any hyperglycemic medications (7) COPD (chronic obstructive pulmonary disease): Plan: - No acute exacerbation - May continue Trelegy - Patient appears to have saturations that have around 90 to 93% on room air, had 1 bout of 88%, CXR is negative Hx of ARIANA - on CPAP (8) CKD (chronic kidney disease), stage III: Plan: - FAUSTINO on CKD - CR/BUN 40/1.62, baseline Cr appears to be ~ 1.5-1.9, crea 2.3 --> 1.9 Resume Lasix Nephrology consulted (9) ARIANA (obstructive sleep apnea): Plan: - Cont CPAP HS DVT ppx: - teds, scds CODE: DNR/DNI Disposition: SNF (10) Weakness: Admission and Anticipated Discharge Date Admission Date: April 07, 2023 Subjective Follow-up for hypertension, etc. Seen sitting up in bedside chair, comfortable, not distressed States he feels fine overall No dizziness today No chest pain, palpitations No bowel movement yet No other symptom Review of Systems Review of Systems: all noted and negative except for above Physical Exam Physical Exam: General- oriented x 3, not in distress, speaks in sentences with no effort or accessory muscle use Eyes- anicteric Neck- no JVD Lungs- clear BS BL Heart- normal rate, regular rhythm; no murmurs Abdomen- normal bowel sounds, nondistended, soft, nontender Extremities- (+) bipedal edema Neuro- alert, oriented x 3; no gross focal neurologic deficits Skin- warm & dry Results & Data Results & Data Vital Signs (Past 12 Hours) Vital Signs Temp Pulse Pulse Resp BP Pulse Ox O2 Del Method 04/15/23 15:38 36.7 C 64 18 103/70 96 Room Air 04/15/23 11:17 36.9 C 62 20 107/72 97 Room Air 04/15/23 08:00 36.1 C L 04/15/23 07:45 37 C 84 21 150/95 H 94 Room Air 04/15/23 07:00 81 all noted and reviewed including below
[2023-04-16 07:32] LABS: Calcium 9.8 mg/dl (8.6-10.3); Creatinine Clr Calc Pharmacy 29.6 ml/min; Est GFR (Non-African American) 26.7 ml/min; Potassium 4.4 mmol/L (3.5-5.1)
[2023-04-16] MEDS: FLUTICASONE FUROATE 100MCG 14 PUFFS/INHALER INH SCH (09:04)
[2023-04-16] MEDS: MULTIVITAMIN TAB PO SCH (09:07)
[2023-04-16] MEDS: CYANOCOBALAMIN (B-12) 500 MCG TABLET PO SCH (09:07)
[2023-04-16] MEDS: FUROSEMIDE 20 MG TAB PO SCH (09:07)
[2023-04-16] MEDS: allopurinoL 300 MG TAB PO SCH (09:07)
[2023-04-16] MEDS: DULoxetine HCL 60 MG CAP PO SCH (09:07)
[2023-04-16] MEDS: METOPROLOL SUCC 25MG EXT REL TAB PO SCH (09:07)
[2023-04-16] MEDS: ASPIRIN 81 MG ECTAB PO SCH (09:07)
[2023-04-16] MEDS: ACETYLCYSTEINE 600 MG CAP PO SCH (09:07)
[2023-04-16] MEDS: EZETIMIBE 10 MG TABLET PO SCH (09:07)
[2023-04-16] MEDS: amLODIPine BESYLATE 5 MG TAB PO SCH ×2 (09:08→20:24)
[2023-04-16] MEDS: PSYLLIUM or GUAR GUM FIBER POWDER PACKET PO SCH (09:11)
[2023-04-16] MEDS: POLYETHYLENE (MIRALAX) 17 GM PACK PO SCH (09:15)
[2023-04-16] MEDS: UMECLIDINIUM/VILANTEROL 62.5/25MCG 7 PUFFS/INHALER INH SCH (10:48)
--- NOTE | 2023-04-16 18:28 | Hospitalist Progress Note ---
Date of Service April 16, 2023 Late entry Date of service above Assessment & Plan (1) AMS (altered mental status): Plan: (1) AMS (altered mental status): Plan: per admitting service notes with addendum: - Admitted to PCU - Stroke order set completed, no indication for thrombolytic - CT head reviewed and is negative - MRI brain wo contrast -Chronic and senescent change as above with no acute intracranial abnormality. - Cont baby aspirin - Neurology consulted - I suspect his episode of confusion was related to hypertensive urgency. I am aware that the episode occurred with an associated right facial droop. I believe this finding is related to his chronic left frontal infarct as identified on MRI and CT. Chronic infarcts may sometimes produce transient symptoms in the context of hypertensive urgency as well as other acute active medical comorbidities. Again, there is no evidence of acute or subacute infarct on his imaging and he does not have any evidence of significant vascular lesion on CT angiography. Patient should continue with daily low-dose aspirin and Zetia.He has a history of intolerance to statins. I think it would be reasonable to consider obtaining 30-day mobile cardiac outpatient telemetry. If he is found to have atrial fibrillation, would then need to consider starting Eliquis. Because he has not had any observed seizure activity, I do not think an EEG is necessary at this time. However, the chronic left frontal infarct, with associated encephalomalacia, extending to the cortex, does increase his risk for seizures. If he were to experience any potential seizure-like activity, would recommend EEG in that context. I do not think empiric treatment with an anticonvulsant is necessary at this time. - PT/OT consults placed - recommend rehab - Speech therapy eval 04/16 Mental status back to baseline Blood pressure improved Awaiting acceptance to acute rehab/[facility] facility (2) Hypertensive urgency: Plan: - SBP 175/110 at home during associated nausea, headache, confusion and difficulty getting dressed, improved status post IV labetalol given in the ER -Patient also became bradycardic into 30s (04/08/23) and concern for AV block, Mobitz type I. ECG obtained and cardiology consulted Telemetry on 04/08 demonstrated transient bradycardia with Mobitz type I heart block, blocked PAC Patient with known obstructive sleep apnea with CPAP per report Plan - reduced metoprolol succinate to 25 mg/day given transient bradycardia. I suspect in part due to hypoxia during sleep resumed CPAP Treat hypertension with addition ofamlodipine 2.5 mg twice daily - Cr increased 2.5 (mild FAUSTINO on CKD),hold Aldactone , and give gentle IVF -Continue ASA 81 mg daily No additional bradycardia noted. 04/16 Blood pressure controlled no Awaiting acceptance to acute rehab (3) CAD (coronary artery disease): (4) AAA (abdominal aortic aneurysm): (5) Hypertension: (6) HLD (hyperlipidemia): Plan: - takes spironolactone MWF - hold now as Cr up, pt is taking lasix prn - Continue baby aspirin - Checked lipid panel, LDL 70, continue Zetia 10 mg in the morning - Last a1c was 5.7, previously diabetic but manages with diet, not on any hyperglycemic medications (7) COPD (chronic obstructive pulmonary disease): Plan: - No acute exacerbation - May continue Trelegy - Patient appears to have saturations that have around 90 to 93% on room air, had 1 bout of 88%, CXR is negative Hx of ARIANA - on CPAP (8) CKD (chronic kidney disease), stage III: Plan: - FAUSTINO on CKD - CR/BUN 40/1.62, baseline Cr appears to be ~ 1.5-1.9, crea 2.3 --> 1.9 Nephrology consulted Usual Lasix resumed Creatinine 2.0 (9) ARIANA (obstructive sleep apnea): Plan: - Cont CPAP HS (10) Weakness: Improving DVT ppx: - clay, scds CODE: DNR/DNI Disposition: SNF Admission and Anticipated Discharge Date Admission Date: April 07, 2023 Subjective Follow-up for hypertension, etc. Seen sitting up in bed, comfortable, no distress States he feels fine overall Ambulating in the room with no problems No shortness of breath Review of Systems Review of Systems: all noted and negative except for above Physical Exam Physical Exam: General- oriented x 3, not in distress, speaks in sentences with no effort or accessory muscle use Eyes- anicteric Neck- no JVD Lungs- clear breath sounds, no crackles or wheezing bilateral Heart- normal rate, regular rhythm; no murmurs Abdomen- normal bowel sounds, nondistended, soft, nontender Extremities-mild bipedal edema, no calf tenderness Neuro- alert, oriented x 3; no gross focal neurologic deficits Skin- warm & dry Results & Data Results & Data Vital Signs (Past 12 Hours) Vital Signs Temp Pulse Resp BP BP Pulse Ox O2 Del Method 04/16/23 16:47 36.8 C 79 19 146/78 H 98 Room Air 04/16/23 11:49 36.8 C 88 20 129/74 96 Room Air 04/16/23 07:43 36.4 C L 85 19 144/84 H 90 Room Air all noted and reviewed including below
[2023-04-17] MEDS: amLODIPine BESYLATE 5 MG TAB PO SCH ×2 (07:57→21:03)
[2023-04-17] MEDS: DULoxetine HCL 60 MG CAP PO SCH (07:57)
[2023-04-17] MEDS: allopurinoL 300 MG TAB PO SCH (07:57)
[2023-04-17] MEDS: MULTIVITAMIN TAB PO SCH (07:58)
[2023-04-17] MEDS: ACETYLCYSTEINE 600 MG CAP PO SCH (07:58)
[2023-04-17] MEDS: METOPROLOL SUCC 25MG EXT REL TAB PO SCH (07:58)
[2023-04-17] MEDS: PSYLLIUM or GUAR GUM FIBER POWDER PACKET PO SCH (07:58)
[2023-04-17] MEDS: ASPIRIN 81 MG ECTAB PO SCH (07:58)
[2023-04-17] MEDS: CYANOCOBALAMIN (B-12) 500 MCG TABLET PO SCH (07:58)
[2023-04-17] MEDS: EZETIMIBE 10 MG TABLET PO SCH (07:58)
[2023-04-17] MEDS: UMECLIDINIUM/VILANTEROL 62.5/25MCG 7 PUFFS/INHALER INH SCH (07:59)
[2023-04-17] MEDS: FLUTICASONE FUROATE 100MCG 14 PUFFS/INHALER INH SCH (07:59)
[2023-04-17] MEDS: POLYETHYLENE (MIRALAX) 17 GM PACK PO SCH (08:02)
[2023-04-17 08:13] LABS: BUN Creatinine Ratio 30.2 (10-20); Creatinine Clr Calc Pharmacy 33.9 ml/min; Est GFR (African American) 36.5 ml/min; Est GFR (Non-African American) 31.5 ml/min; Potassium 4.5 mmol/L (3.5-5.1)
--- NOTE | 2023-04-17 15:18 | Hospitalist Progress Note ---
Date of Service April 17, 2023 Assessment & Plan (1) AMS (altered mental status): Plan: (1) AMS (altered mental status): Plan: per admitting service notes with addendum: - Admitted to PCU - Stroke order set completed, no indication for thrombolytic - CT head reviewed and is negative - MRI brain wo contrast -Chronic and senescent change as above with no acute intracranial abnormality. - Cont baby aspirin - Neurology consulted - I suspect his episode of confusion was related to hypertensive urgency. I am aware that the episode occurred with an associated right facial droop. I believe this finding is related to his chronic left frontal infarct as identified on MRI and CT. Chronic infarcts may sometimes produce transient symptoms in the context of hypertensive urgency as well as other acute active medical comorbidities. Again, there is no evidence of acute or subacute infarct on his imaging and he does not have any evidence of significant vascular lesion on CT angiography. Patient should continue with daily low-dose aspirin and Zetia.He has a history of intolerance to statins. I think it would be reasonable to consider obtaining 30-day mobile cardiac outpatient telemetry. If he is found to have atrial fibrillation, would then need to consider starting Eliquis. Because he has not had any observed seizure activity, I do not think an EEG is necessary at this time. However, the chronic left frontal infarct, with associated encephalomalacia, extending to the cortex, does increase his risk for seizures. If he were to experience any potential seizure-like activity, would recommend EEG in that context. I do not think empiric treatment with an anticonvulsant is necessary at this time. - PT/OT consults placed - recommend rehab - Speech therapy eval 04/17 Mental status back to baseline Blood pressure improved Awaiting acceptance to acute rehab/[facility] facility (2) Hypertensive urgency: Plan: - SBP 175/110 at home during associated nausea, headache, confusion and difficulty getting dressed, improved status post IV labetalol given in the ER -Patient also became bradycardic into 30s (04/08/23) and concern for AV block, Mobitz type I. ECG obtained and cardiology consulted Telemetry on 04/08 demonstrated transient bradycardia with Mobitz type I heart block, blocked PAC Patient with known obstructive sleep apnea with CPAP per report Plan - reduced metoprolol succinate to 25 mg/day given transient bradycardia. I suspect in part due to hypoxia during sleep resumed CPAP Treat hypertension with addition ofamlodipine 2.5 mg twice daily - Cr increased 2.5 (mild FAUSTINO on CKD),hold Aldactone , and give gentle IVF -Continue ASA 81 mg daily No additional bradycardia noted. 04/17 Blood pressure controlled Awaiting acceptance to acute rehab (3) CAD (coronary artery disease): (4) AAA (abdominal aortic aneurysm): (5) Hypertension: (6) HLD (hyperlipidemia): Plan: - takes spironolactone MWF - hold now as Cr up, pt is taking lasix prn - Continue baby aspirin - Checked lipid panel, LDL 70, continue Zetia 10 mg in the morning - Last a1c was 5.7, previously diabetic but manages with diet, not on any hyperglycemic medications (7) COPD (chronic obstructive pulmonary disease): Plan: - No acute exacerbation - May continue Trelegy - Patient appears to have saturations that have around 90 to 93% on room air, had 1 bout of 88%, CXR is negative Hx of ARIANA - on CPAP (8) CKD (chronic kidney disease), stage III: Plan: - FAUSTINO on CKD - CR/BUN 40/1.62, baseline Cr appears to be ~ 1.5-1.9, crea 2.3 --> 1.9 Nephrology consulted Usual Lasix resumed Creatinine 2.0 (9) ARIANA (obstructive sleep apnea): Plan: - Cont CPAP HS (10) Weakness: Improving DVT ppx: - teds, scds CODE: DNR/DNI Disposition: SNF Admission and Anticipated Discharge Date Admission Date: April 07, 2023 Subjective Follow-up for hypertension, etc. Seen resting in chair, comfortable States he feels fine overall No chest pain, palpitations, shortness of breath, dizziness No other symptoms Review of Systems Review of Systems: all noted and negative except for above Physical Exam Physical Exam: General- oriented x 3, not in distress, speaks in sentences with no effort or accessory muscle use Eyes- anicteric Neck- no JVD Lungs- clear breath sounds bilaterally Heart- normal rate, regular rhythm; no murmurs Abdomen- normal bowel sounds, nondistended, soft, nontender Extremities-mild bipedal edema, no calf tenderness Neuro- alert, oriented x 3; no gross focal neurologic deficits Skin- warm & dry Results & Data Results & Data Vital Signs (Past 12 Hours) Vital Signs Temp Pulse Pulse Resp BP BP Pulse Ox 04/17/23 11:30 36.7 C 68 19 139/84 97 04/17/23 08:01 36.7 C 83 18 151/77 H 94 04/17/23 07:00 79 04/17/23 04:27 36.5 C 78 17 137/80 96 O2 Del Method 04/17/23 11:30 Room Air 04/17/23 08:01 Room Air 04/17/23 07:00 04/17/23 04:27 Room Air all noted and reviewed including below
[2023-04-17] MEDS: DOCUSATE SODIUM 100 MG CAP PO PRN (21:06)
[2023-04-18 07:32] LABS: BUN Creatinine Ratio 30.7 (10-20); Calcium 10.3 mg/dl (8.6-10.3); Creatinine Clr Calc Pharmacy 30.3 ml/min; Est GFR (African American) 31.8 ml/min; Est GFR (Non-African American) 27.5 ml/min; Potassium 4.3 mmol/L (3.5-5.1)
[2023-04-18] MEDS: amLODIPine BESYLATE 5 MG TAB PO SCH ×2 (08:16→20:39)
[2023-04-18] MEDS: allopurinoL 300 MG TAB PO SCH (08:17)
[2023-04-18] MEDS: ACETYLCYSTEINE 600 MG CAP PO SCH (08:17)
[2023-04-18] MEDS: CYANOCOBALAMIN (B-12) 500 MCG TABLET PO SCH (08:18)
[2023-04-18] MEDS: METOPROLOL SUCC 25MG EXT REL TAB PO SCH (08:19)
[2023-04-18] MEDS: EZETIMIBE 10 MG TABLET PO SCH (08:19)
[2023-04-18] MEDS: MULTIVITAMIN TAB PO SCH (08:19)
[2023-04-18] MEDS: DULoxetine HCL 60 MG CAP PO SCH (08:19)
[2023-04-18] MEDS: ASPIRIN 81 MG ECTAB PO SCH (08:19)
[2023-04-18] MEDS: UMECLIDINIUM/VILANTEROL 62.5/25MCG 7 PUFFS/INHALER INH SCH (08:21)
[2023-04-18] MEDS: FLUTICASONE FUROATE 100MCG 14 PUFFS/INHALER INH SCH (08:21)
[2023-04-18] MEDS: PSYLLIUM or GUAR GUM FIBER POWDER PACKET PO SCH (08:22)
[2023-04-18] MEDS: POLYETHYLENE (MIRALAX) 17 GM PACK PO SCH (09:21)
[2023-04-18] MEDS: DOCUSATE SODIUM 100 MG CAP PO PRN ×2 (11:54→18:38)
--- NOTE | 2023-04-18 14:05 | Hospitalist Progress Note ---
Date of Service April 18, 2023 Assessment & Plan (1) AMS (altered mental status): Plan: (1) AMS (altered mental status): Plan: per admitting service notes with addendum: - Admitted to PCU - Stroke order set completed, no indication for thrombolytic - CT head reviewed and is negative - MRI brain wo contrast -Chronic and senescent change as above with no acute intracranial abnormality. - Cont baby aspirin - Neurology consulted - I suspect his episode of confusion was related to hypertensive urgency. I am aware that the episode occurred with an associated right facial droop. I believe this finding is related to his chronic left frontal infarct as identified on MRI and CT. Chronic infarcts may sometimes produce transient symptoms in the context of hypertensive urgency as well as other acute active medical comorbidities. Again, there is no evidence of acute or subacute infarct on his imaging and he does not have any evidence of significant vascular lesion on CT angiography. Patient should continue with daily low-dose aspirin and Zetia.He has a history of intolerance to statins. I think it would be reasonable to consider obtaining 30-day mobile cardiac outpatient telemetry. If he is found to have atrial fibrillation, would then need to consider starting Eliquis. Because he has not had any observed seizure activity, I do not think an EEG is necessary at this time. However, the chronic left frontal infarct, with associated encephalomalacia, extending to the cortex, does increase his risk for seizures. If he were to experience any potential seizure-like activity, would recommend EEG in that context. I do not think empiric treatment with an anticonvulsant is necessary at this time. - PT/OT consults placed - recommend rehab - Speech therapy eval 04/18 Mental status back to baseline Blood pressure improved Awaiting acceptance to acute rehab/shelter facility (2) Hypertensive urgency: Plan: - SBP 175/110 at home during associated nausea, headache, confusion and difficulty getting dressed, improved status post IV labetalol given in the ER -Patient also became bradycardic into 30s (04/08/23) and concern for AV block, Mobitz type I. ECG obtained and cardiology consulted Telemetry on 04/08 demonstrated transient bradycardia with Mobitz type I heart block, blocked PAC Patient with known obstructive sleep apnea with CPAP per report Plan - reduced metoprolol succinate to 25 mg/day given transient bradycardia. I suspect in part due to hypoxia during sleep resumed CPAP Treat hypertension with addition ofamlodipine 2.5 mg twice daily - Cr increased 2.5 (mild FAUSTINO on CKD),hold Aldactone , and give gentle IVF -Continue ASA 81 mg daily No additional bradycardia noted. 04/18 Blood pressure controlled Awaiting acceptance to acute rehab (3) CAD (coronary artery disease): (4) AAA (abdominal aortic aneurysm): (5) Hypertension: (6) HLD (hyperlipidemia): Plan: - takes spironolactone MWF - hold now as Cr up, pt is taking lasix prn - Continue baby aspirin - Checked lipid panel, LDL 70, continue Zetia 10 mg in the morning - Last a1c was 5.7, previously diabetic but manages with diet, not on any hyperglycemic medications (7) COPD (chronic obstructive pulmonary disease): Plan: - No acute exacerbation - May continue Trelegy - Patient appears to have saturations that have around 90 to 93% on room air, had 1 bout of 88%, CXR is negative Hx of ARIANA - on CPAP (8) CKD (chronic kidney disease), stage III: Plan: - FAUSTINO on CKD - CR/BUN 40/1.62, baseline Cr appears to be ~ 1.5-1.9, crea 2.3 --> 1.9--> 2.1 Nephrology consulted Usual Lasix resumed Creatinine 2.1 (9) ARIANA (obstructive sleep apnea): Plan: - Cont CPAP HS (10) Weakness: Improving DVT ppx: - tedmorgan, scds CODE: DNR/DNI Disposition: SNF Admission and Anticipated Discharge Date Admission Date: April 07, 2023 Subjective ff up for HTN, etc seen resting in chair, comfortable states he feels fine overall no dizziness ambulates in the room, no symptoms Review of Systems Review of Systems: all noted and negative except for above Physical Exam Physical Exam: General- oriented x 3, not in distress, speaks in sentences with no effort or accessory muscle use Eyes- anicteric Neck- no JVD Lungs- clear breath sounds bilaterally, no rales/wheezes Heart- normal rate, regular rhythm; no murmurs Abdomen- normal bowel sounds, nondistended, soft, nontender Extremities- (+) bipedal edema, no calf tenderness Neuro- alert, oriented x 3; no gross focal neurologic deficits Skin- warm & dry Results & Data Results & Data Vital Signs (Past 12 Hours) Vital Signs Temp Pulse Pulse Resp BP BP Pulse Ox 04/18/23 11:17 04/18/23 11:12 36.8 C 77 18 138/72 95 04/18/23 07:35 36.4 C L 83 18 138/83 95 04/18/23 04:59 36.1 C L 82 16 139/82 96 O2 Del Method O2 Flow Rate 04/18/23 11:17 Room Air 04/18/23 11:12 Room Air 04/18/23 07:35 Room Air 04/18/23 04:59 CPAP 4 all noted and reviewed including below
[2023-04-18] MEDS: ACETAMINOPHEN 325 MG TAB PO PRN (18:38)
[2023-04-19 07:26] LABS: BUN Creatinine Ratio 29.3 (10-20); Calcium 9.9 mg/dl (8.6-10.3); Creatinine Clr Calc Pharmacy 27.2 ml/min; Est GFR (Non-African American) 24.2 ml/min; Potassium 4.1 mmol/L (3.5-5.1)
[2023-04-19] MEDS: amLODIPine BESYLATE 5 MG TAB PO SCH ×2 (09:15→21:06)
[2023-04-19] MEDS: UMECLIDINIUM/VILANTEROL 62.5/25MCG 7 PUFFS/INHALER INH SCH (09:15)
[2023-04-19] MEDS: FLUTICASONE FUROATE 100MCG 14 PUFFS/INHALER INH SCH (09:15)
[2023-04-19] MEDS: PSYLLIUM or GUAR GUM FIBER POWDER PACKET PO SCH (09:18)
[2023-04-19] MEDS: allopurinoL 300 MG TAB PO SCH (09:19)
[2023-04-19] MEDS: ACETYLCYSTEINE 600 MG CAP PO SCH (09:19)
[2023-04-19] MEDS: ASPIRIN 81 MG ECTAB PO SCH (09:20)
[2023-04-19] MEDS: METOPROLOL SUCC 25MG EXT REL TAB PO SCH (09:20)
[2023-04-19] MEDS: MULTIVITAMIN TAB PO SCH (09:21)
[2023-04-19] MEDS: EZETIMIBE 10 MG TABLET PO SCH (09:21)
[2023-04-19] MEDS: DULoxetine HCL 60 MG CAP PO SCH (09:21)
[2023-04-19] MEDS: CYANOCOBALAMIN (B-12) 500 MCG TABLET PO SCH (09:21)
[2023-04-19] MEDS: ACETAMINOPHEN 325 MG TAB PO PRN ×2 (09:26→16:32)
[2023-04-19] MEDS: POLYETHYLENE (MIRALAX) 17 GM PACK PO SCH (09:59)
--- NOTE | 2023-04-19 12:06 | Nephrology Progress Note ---
Date of Service April 19, 2023 Assessment & Plan Admission and Anticipated Discharge Date Admission Date: April 07, 2023 Subjective Assessment & Plan (1) FAUSTINO (acute kidney injury): Etiology of acute renal failure seems unclear. He is making urine and the urine sediment is pretty bland. After peaking at 2.5 creatinine is now trending down which is a good sign. Creatinine still 1.96 which is higher than his baseline of around 1.4. Given that creatinine is starting to get better I do not feel we have to do any further work-up As an outpatient he does take a low-dose Lasix and low-dose spironolactone. Continue to hold both for now. has been off both for long time and no major consequences. He does have edema though Creat seems to have plateaued at a higher level of around2 to 2.6. We will accept this is a new baseline for the time being. If everything else is fine I have no problem patient being discharged. waiting for rehab He follows with Dr. Gina Murillo and will set up postdischarge appointment with her within 2-weeks. (2) AMS (altered mental status): Unclear etiology but seems to have resolved and is back to baseline S--no new issues. Labs stable. on RA. Physical Exam Constitutional: WD/WN, vitals as above no acute distress Neck: normal visual inspection and trachea midline Respiratory: normal respiratory effort, lungs clear to auscultation Auscultation: + rales and + wheezes; no rhonchi Cardiovascular: RRR, no murmur, Rate/Rhythm: regular rate and regular rhythm Heart Sounds: normal S1 and normal S2; no murmur (distant heart sounds) Vessels: no JVD Extremities: + edema Gastrointestinal (Abdomen): normal bowel sounds, soft, nontender, no hepatosplenomegaly Neurologic: PERRL, EOMI, accommodation nl, no face palsy, no dysarthria Psychiatric: A+Ox3, euthymic affect Results & Data Vital Signs (Past 12 Hours) Vital Signs Temp Pulse Pulse Resp BP BP Pulse Ox 04/19/23 11:09 86 04/19/23 11:00 04/19/23 09:00 117/78 04/19/23 10:58 36.9 C 63 18 122/70 96 04/19/23 07:44 36.3 C L 81 19 130/78 97 04/19/23 03:26 36.5 C 86 20 116/79 96 O2 Del Method 04/19/23 11:09 04/19/23 11:00 Room Air 04/19/23 09:00 04/19/23 10:58 Room Air 04/19/23 07:44 Room Air 04/19/23 03:26 BiPAP
--- NOTE | 2023-04-19 15:58 | Hospitalist Progress Note ---
Date of Service April 19, 2023 Assessment & Plan (1) Hypertension: (2) Altered mental status: Plan: (1) AMS (altered mental status): Plan: per admitting service notes with addendum: - Admitted to PCU - Stroke order set completed, no indication for thrombolytic - CT head reviewed and is negative - MRI brain wo contrast -Chronic and senescent change as above with no acute intracranial abnormality. - Cont baby aspirin - Neurology consulted - I suspect his episode of confusion was related to hypertensive urgency. I am aware that the episode occurred with an associated right facial droop. I b elieve this finding is related to his chronic left frontal infarct as identified on MRI and CT. Chronic infarcts may sometimes produce transient symptoms in the context of hypertensive urgency as well as other acute active medical comorbidities. Again, there is no evidence of acute or subacute infarct on his imaging and he does not have any evidence of significant vascular lesion on CT angiography. Patient should continue with daily low-dose aspirin and Zetia.He has a history of intolerance to statins. I think it would be reasonable to consider obtaining 30-day mobile cardiac outpatient telemetry. If he is found to have atrial fibrillation, would then need to consider starting Eliquis. Because he has not had any observed seizure activity, I do not think an EEG is necessary at this time. However, the chronic left frontal infarct, with associated encephalomalacia, extending to the cortex, does increase his risk for seizures. If he were to experience any potential seizure-like activity, would recommend EEG in that context. I do not think empiric treatment with an anticonvulsant is necessary at this time. - PT/OT consults placed - recommend rehab - Speech therapy eval 04/19 Mental status back to baseline Blood pressure improved Awaiting acceptance to acute rehab/[facility] facility (2) Hypertensive urgency: Plan: - SBP 175/110 at home during associated nausea, headache, confusion and difficulty getting dressed, improved status post IV labetalol given in the ER -Patient also became bradycardic into 30s (04/08/23) and concern for AV block, Mobitz type I. ECG obtained and cardiology consulted Telemetry on 04/08 demonstrated transient bradycardia with Mobitz type I heart block, blocked PAC Patient with known obstructive sleep apnea with CPAP per report Plan - reduced metoprolol succinate to 25 mg/day given transient bradycardia. I suspect in part due to hypoxia during sleep resumed CPAP Treat hypertension with addition ofamlodipine 2.5 mg twice daily - Cr increased 2.5 (mild FAUSTINO on CKD),hold Aldactone , and give gentle IVF -Continue ASA 81 mg daily No additional bradycardia noted. 8/1 Blood pressure controlled Awaiting acceptance to acute rehab (3) CAD (coronary artery disease): (4) AAA (abdominal aortic aneurysm): (5) Hypertension: (6) HLD (hyperlipidemia): Plan: - Continue baby aspirin - Checked lipid panel, LDL 70, continue Zetia 10 mg in the morning - Last a1c was 5.7, previously diabetic but manages with diet, not on any hyperglycemic medications (7) COPD (chronic obstructive pulmonary disease): Plan: - No acute exacerbation - May continue Trelegy - Patient appears to have saturations that have around 90 to 93% on room air, had 1 bout of 88%, CXR is negative Hx of ARIANA - on CPAP (8) CKD (chronic kidney disease), stage III: Plan: - FAUSTINO on CKD - CR/BUN 40/1.62, baseline Cr appears to be ~ 1.5-1.9, Nephrology consulted Lasix resumed during admission patient was noted to be having rales and bipedal edema Creatinine slowly increasing crea 2.3 --> 1.9--> 2.1-->2.39 Dr. Pagan recommending discontinuation of Lasix and Spironolactone Follow-up with nephrology service in 2 weeks, patient usually follows with Dr. Gina More (9) ARIANA (obstructive sleep apnea): Plan: - Cont CPAP HS (10) Weakness: Improving Awaiting to transition to [facility] facility DVT ppx: - teds, scds CODE: DNR/DNI Disposition: Awaiting acceptance to [facility] facility Admission and Anticipated Discharge Date Admission Date: April 07, 2023 Subjective Follow-up for hypertensive urgency, etc. Seen sitting up in bed, comfortable, not in distress In good spirits States he feels fine overall Denies chest pain, dizziness, palpitations, shortness of breath No other new symptoms Review of Systems Review of Systems: all noted and negative except for above Physical Exam Physical Exam: General- oriented x 3, not in distress, speaks in sentences with no effort or accessory muscle use Eyes- anicteric Neck- no JVD Lungs- clear breath sounds bilaterally, no rales/wheezes Heart- normal rate, regular rhythm; no murmurs Abdomen- normal bowel sounds, nondistended, soft, nontender Extremities-bipedal edema, no calf tenderness Neuro- alert, oriented x 3; no gross focal neurologic deficits Skin- warm & dry Results & Data Results & Data Vital Signs (Past 12 Hours) Vital Signs Temp Pulse Pulse Resp BP BP Pulse Ox 04/19/23 15:52 71 04/19/23 15:15 130/72 04/19/23 15:13 36.8 C 68 18 93/59 L 96 04/19/23 11:09 86 04/19/23 11:00 04/19/23 09:00 117/78 04/19/23 10:58 36.9 C 63 18 122/70 96 04/19/23 07:44 36.3 C L 81 19 130/78 97 O2 Del Method 04/19/23 15:52 04/19/23 15:15 04/19/23 15:13 Room Air 04/19/23 11:09 04/19/23 11:00 Room Air 04/19/23 09:00 04/19/23 10:58 Room Air 04/19/23 07:44 Room Air all noted and reviewed including below (1) Hypertension Hypertension type: unspecified Qualified Code(s): I10 - Essential (primary) hypertension (2) Altered mental status Altered mental status type: disorientation Qualified Code(s): R41.0 - Disorientation, unspecified
[2023-04-20 07:42] LABS: BUN Creatinine Ratio 29.4 (10-20); Calcium 10.5 mg/dl (8.6-10.3); Creatinine Clr Calc Pharmacy 26.3 ml/min; Est GFR (African American) 26.8 ml/min; Est GFR (Non-African American) 23.1 ml/min; Potassium 4.3 mmol/L (3.5-5.1)
[2023-04-20] MEDS: FLUTICASONE FUROATE 100MCG 14 PUFFS/INHALER INH SCH (07:53)
[2023-04-20] MEDS: UMECLIDINIUM/VILANTEROL 62.5/25MCG 7 PUFFS/INHALER INH SCH (07:53)
[2023-04-20] MEDS: amLODIPine BESYLATE 5 MG TAB PO SCH (07:54)
[2023-04-20] MEDS: PSYLLIUM or GUAR GUM FIBER POWDER PACKET PO SCH (07:54)
[2023-04-20] MEDS: allopurinoL 300 MG TAB PO SCH (07:54)
[2023-04-20] MEDS: ASPIRIN 81 MG ECTAB PO SCH (07:54)
[2023-04-20] MEDS: DULoxetine HCL 60 MG CAP PO SCH (07:54)
[2023-04-20] MEDS: CYANOCOBALAMIN (B-12) 500 MCG TABLET PO SCH (07:54)
[2023-04-20] MEDS: MULTIVITAMIN TAB PO SCH (07:55)
[2023-04-20] MEDS: EZETIMIBE 10 MG TABLET PO SCH (07:55)
[2023-04-20] MEDS: METOPROLOL SUCC 25MG EXT REL TAB PO SCH (07:55)
[2023-04-20] MEDS: ACETYLCYSTEINE 600 MG CAP PO SCH (07:55)
[2023-04-20] MEDS: POLYETHYLENE (MIRALAX) 17 GM PACK PO SCH (09:57)
--- NOTE | 2023-04-20 14:00 | Discharge Summary ---
Date of Service April 20, 2023 Admission HPI Per Admitting Provider This is an 82-year-old male with PMHx of CAD, AAA, HTN, HLD, DM type II, CKD stage III, peripheral neuropathy, COPD on CPAP at bedtime, depression who presents to the hospital with acute bout of altered mental status which occurred this morning between 7:30 and 8:30 AM. Upon arrival here to the hospital states that he is nearly back to baseline. He had been nauseous and complaining of a frontal right-sided headache earlier today. His notes that he was having difficulty getting dressed and seemed to be generally confused. Patient has difficulty ambulating at all times but was more off balance with getting dressed today. She denies any slurring of speech but noticed a right sided mouth droop which was new. It is now resolved. He did take his morning medications today including his antihypertensives. Pt is statin intolerance due to dizziness and has trialed two in the past. In general patient has been having progressive weakness over the last few months, having difficulty with walking, has been working with PT 2 times per week at home. Pt is very sedentary, primarily wheelchair/scooter bound ambulates minimally on his own and requires assistance with transfers. Denies any other acute complaints. Blood pressure is noted to be elevated at 175/43, and per nursing staff was found to be hypoxic at 88% on room air. He received DuoNeb treatment,now maintains oxygen saturations of around 93% on RA. CT of the head is negative, CTA of the head and neck is also negative. Admission Exam Per Admitting Provider General: awake, alert, no apparent distress, elderly appearing male Head: Normocephalic, atraumatic, no facial droop ENT: PERRL, EOMI, no pharyngeal exudate, mucous membranes moist Chest: Clear to auscultation, on room air, o2 sats of 93% , no adventitious breath sounds Cardiac: Regular rate and rhythm, no murmur, no JVD, normal peripheral pulses, good capillary refill Abdominal: NABS x 4 quadrants, soft, nondistended, nontender to palpation, no rebound or guarding Extremities: Normal inspection, no peripheral edema or erythema, calfs nontender to palpation Psych: Normal mood and affect Neuro: AAO x 3, strength intact bilaterally in upper extremities rated 5/5, and RLE rated 3/5, LLE rated 4/5, no facial droop, CN II-XII intact, mini mental exam able to be completed, no pronator drift, no motor deficits, speech is clear, no peripheral sensory deficits Principal Diagnosis Altered mental status, Hypertensive urgency Discharge Exam General: WD/WN, elderly M in NAD Head: Normocephalic, atraumatic, no facial droop ENT: PERRL, EOMI, mucous membranes moist Chest: Clear to auscultation, no adventitious breath sounds Cardiac: Regular rate and rhythm, no murmur, no JVD Abdominal: NABS x 4 quadrants, soft, nondistended, nontender to palpation Extremities: Normal inspection, no peripheral edema or erythema, moves extremities Psych: Normal mood and affect Neuro: AAO x 3, speech is clear, no facial asymmetry, answers appropriately, moves extremities (+ some chronic LE weakness) Discharge Data Allergies Allergy/AdvReac Type Severity Reaction Status Date / Time Gyjpaod-FMM-EqI Reductase AdvReac Intermediate Dizziness Verified 09/14/21 09:32 Inhibitor [Pmayniu-Tvf-Ane Reductase Inhibitor] Consultations 04/07/23 13:36 ED Decision to Admit Stat 04/08/23 11:12 Consult Neurology Routine 04/08/23 11:32 Consult Cardiology Routine 04/14/23 07:27 Consult Nephrology Routine Ordered Studies 04/07/23 11:23 CT angio head w con Stat CT angio neck with con Stat CT head/brain wo con Stat IMPRESSION: 1. No acute intracranial hemorrhage, evidence of acute territorial infarction, or other acute intracranial disease process. 2. No occlusion, hemodynamically significant stenosis, or dissection in the major cervical arteries. 3. No occlusion, hemodynamically significant stenosis, aneurysm, dissection, or arteriovenous malformation in the major intracranial arteries. Assessment of stenosis of the internal carotid arteries is based on NASCET criteria. 04/07/23 14:39 MRI Brain [MR brain wo con] Stat FINDINGS: Brain parenchyma: There is age related involutional change noting moderate to advanced subcortical and periventricular microangiopathic disease. Left frontal encephalomalacia is consistent with a remote infarct. 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 There is no hemorrhage or mass effect. There is no restricted diffusion to suggest acute ischemia. Zhong-white matter differentiation is preserved. No extra-axial fluid collection is seen. The cerebellar tonsils are normal in configuration. Ventricles, sulci, and cisterns: Prominent secondary to involutional change. Pituitary and sella: Unremarkable. Intracranial vasculature: Normal flow voids are maintained at the skull base. Orbits: The bony orbits are grossly intact. Orbital contents are normal in appearance noting bilateral ocular lens implants. Sinuses and mastoids: There is an 8 mm retention cyst in the right maxillary antrum. The paranasal sinuses and mastoid air cells are otherwise clear. Calvarium: Unremarkable. Cervical cord: Partially visualized cervical spinal cord is normal in morphology and signal intensity. IMPRESSION: Chronic and senescent change as above with no acute intracranial abnormality. Hospital Course (1) Hypertension: (2) Altered mental status: (1) AMS (altered mental status): - Admitted to PCU - Stroke order set completed, no indication for thrombolytic - CT head reviewed and is negative - MRI brain wo contrast -Chronic and senescent change as above with no acute intracranial abnormality. - Cont baby aspirin - Neurology consulted - I suspect his episode of confusion was related to hypertensive urgency. I am aware that the episode occurred with an associated right facial droop. I believe this finding is related to his chronic left frontal infarct as identified on MRI and CT. Chronic infarcts may sometimes produce transient symptoms in the context of hypertensive urgency as well as other acute active medical comorbidities. Again, there is no evidence of acute or subacute infarct on his imaging and he does not have any evidence of significant vascular lesion on CT angiography. Patient should continue with daily low-dose aspirin and Zetia.He has a history of intolerance to statins. I think it would be reasonable to consider obtaining 30-day mobile cardiac outpatient telemetry. If he is found to have atrial fibrillation, would then need to consider starting Eliquis. Because he has not had any observed seizure activity, I do not think an EEG is necessary at this time. However, the chronic left frontal infarct, with associated encephalomalacia, extending to the cortex, does increase his risk for seizures. If he were to experience any potential seizure-like activity, would recommend EEG in that context. I do not think empiric treatment with an anticonvulsant is necessary at this time. - PT/OT consults placed - recommend rehab - Speech therapy eval 04/19 Mental status back to baseline Blood pressure improved Awaiting acceptance to acute rehab/longterm facility (2) Hypertensive urgency: - SBP 175/110 at home during associated nausea, headache, confusion and difficulty getting dressed, improved status post IV labetalol given in the ER -Patient also became bradycardic into 30s (04/08/23) and concern for AV block, Mobitz type I. ECG obtained and cardiology consulted Telemetry on 04/08 demonstrated transient bradycardia with Mobitz type I heart block, blocked PAC Patient with known obstructive sleep apnea with CPAP per report Plan - reduced metoprolol succinate to 25 mg/day given transient bradycardia. I suspect in part due to hypoxia during sleep resumed CPAP Treat hypertension with addition ofamlodipine 2.5 mg twice daily - Cr increased 2.5 (mild FAUSTINO on CKD),hold Aldactone , hold furosemide - discussed w/ nephrology - hold aldactone and furosemide and follow up w/ Dr. Murillo (nephrology) within 2 weeks. -Continue ASA 81 mg daily No additional bradycardia noted. 04/19 Blood pressure controlled Awaiting acceptance to acute rehab (3) CAD (coronary artery disease): (4) AAA (abdominal aortic aneurysm): (5) Hypertension: (6) HLD (hyperlipidemia): Plan: - Continue baby aspirin - Checked lipid panel, LDL 70, continue Zetia 10 mg in the morning - Last a1c was 5.7, previously diabetic but manages with diet, not on any hyperglycemic medications (7) COPD (chronic obstructive pulmonary disease): Plan: - No acute exacerbation - May continue Trelegy - Patient appears to have saturations that have around 90 to 93% on room air, had 1 bout of 88%, CXR is negative Hx of ARIANA - on CPAP (8) CKD (chronic kidney disease), stage III: Plan: - FAUSTINO on CKD - CR/BUN 40/1.62, baseline Cr appears to be ~ 1.5-1.9, Nephrology consulted Lasix resumed during admission patient was noted to be having rales and bipedal edema Creatinine slowly increasing crea 2.3 --> 1.9--> 2.1-->2.39 Dr. Pagan recommending discontinuation of Lasix and Spironolactone Follow-up with nephrology service in 2 weeks, patient usually follows with Dr. Gina More (9) ARIANA (obstructive sleep apnea): Plan: - Cont CPAP HS (10) Weakness: Improving Awaiting to transition to longterm facility CODE: DNR/DNI Total Time Total Time Spent Total Time Spent (In Minutes): 40 Discharge Plan Discharge Items Patient Disposition: Transfer [facility] Reason For Visit: HYPERTENSIVE URGENCY, AMS Discharge Diagnosis: Altered mental status, Hypertensive urgency Condition on Discharge: Fair Activity: Per Instructions section Non-emergency contact: Primary Care Provider and Herb Doctor Call non-emergency contact if: you have any medication questions and your symptoms worsen Follow-up/Referrals: Hank Burden, [Primary Care Provider] - Diet: Carb Consistent or DM2 and Heart Healthy Addtl Attending Provider Instructions: Follow-up with primary care physician within 1 week. You will also need to follow-up with your striper spray gun, Dr. Murillo, within 2 weeks. Take metoprolol succinate 25 mg daily, instead of twice a day. Take amlodipine 2.5 mg twice a day. Continue taking aspirin 81 mg daily, and use Zetia. Do not take any spironolactone or furosemide until seen by Dr. Murillo. Then discuss with her, if/when you should restart these medications. Make sure to use your CPAP at night when sleeping. Pending Studies at Discharge: No Stand-Alone Forms: My [facility] Skilled Items Patient informed of condition?: Yes DNR: Yes Discharge Level of Care: Skilled Communicable Disease: No Discharge Prognosis: Stable Lines: None Urinary Catheter: No Medications and DC Order Prescriptions: New metoprolol succinate 25 mg Tablet Extended Release 24 Hr 25 mg PO QAM Qty: 30 0RF amlodipine [Norvasc] 5 mg Tablet 2.5 mg PO BID Qty: 20 0RF Continued multivitamin Tablet 1 tab PO QAM aspirin 81 mg Tablet,Delayed Release (Dr/Ec) 81 mg PO Q2D allopurinol 300 mg Tablet 1.5 tab PO QAM duloxetine [Cymbalta] 30 mg Capsule,Delayed Release(Dr/Ec) 60 mg PO QAM ipratropium-albuterol 0.5 mg-3 mg(2.5 mg base)/3 mL Solution For Nebulization 1 dose Inhalation Q6H PRN (Reason: Shortness Of Breath) docusate sodium [Colace] 100 mg Capsule 100 mg PO BID PRN (Reason: Constipation) albuterol sulfate [Ventolin HFA] 90 mcg/actuation Hfa Aerosol Inhaler 2 puff INHALATION Q6H PRN (Reason: Shortness Of Breath Or Wheezing) ezetimibe [Zetia] 10 mg Tablet 10 mg PO QAM Trelegy Ellipta 100-62.5-25 mcg Blister With Device 1 inh INHALATION QAM cyanocobalamin (vitamin B-12) 1,000 mcg Tablet 1,000 mcg PO QAM acetylcysteine [NAC] 600 mg Capsule 600 mg PO DAILY Metamucil 3.4 gram/5.4 gram Powder 1 tbsp PO QAM cephalexin 500 mg Tablet 500 mg PO UD PRN (Reason: Other) Discontinued metoprolol succinate 25 mg Tablet Extended Release 24 Hr 25 mg PO BID Patient Comments: 02/20/21: Patient states he now takes 25mg in AM + 25mg in PM calcium carbonate-vitamin D3 [Calcium 500 + D] 500 mg(1,250mg) -200 unit Tablet 1 tab PO HS furosemide 40 mg tablet 40 mg PO QAM PRN (Reason: edema) Patient Comments: WILL TAKE AN ADDITIONAL 40MG FOR LEG SWELLING Rx Instructions: Takes [facility] spironolactone [Aldactone] 25 mg Tablet 12.5 mg PO Q OTHER DAY Rx Instructions: Takes MWF Discharge Orders: Discharge Order (Routine); Ordered 04/20/23 Ordered By: Xavier Magdaleno Admission Data Admit Date/Time: 04/07/23 14:25 Attending Provider: Xavier Magdaleno Admit Provider: Trinity Osullivan Primary Care Provider: Hank Burden Other Providers: [employer] ; Trinity Osullivan ; [facility],[place] ; Giacomo Marroquin ; Harry Green ; [facility] ; Xavier Magdaleno ; Aniket Pagan ; [place],[facility] ; Tim Workman
== END 2023-04-20 15:09 | DRG 305 ==
LOC: ED 09:52 → 2E 14:25 → SUATTDRO 14:25 → 2E 17:29